=== PATIENT | male | born 1950 | race Caucasian/White ===

== ENCOUNTER 2025-08-04 16:40 | Inpatient (IN) | payer OTHER, SELFPAY ==
--- OUTSIDE RECORDS SUMMARY | 2024-09-16 05:10 | XMS_ITS ---
Author Organization [facility] Address [address] [place] [address] Care Team Providers Care Teletypewriter Operator Name Role Phone Rajesh Alonso MD Primary Care Provider Unavail able VELASQUEZ BLEDSOE Unavailable [phone] Allergies No Known Allergies REASON FOR VISIT 1 yr of w/psa 0.19, bph w/obstr, elevated psa Medications Medication SIG (Take, Route, Frequency, Duration) Notes Start Date End Date Status ALFUZOSIN HYDROCHLORIDE 10 mg tablet, extended release 1 tab(s) orally once a day; Duration: 30 day(s) 05/30/2018 Active FINASTERIDE 5 mg tablet 1 tab(s) orally once a day; Duration: 90 days 08/21/2022 Active ELIQUIS Active Social History Tobacco Use: Social History Observation Description Date Details (start date - stop date) Former Smoker NA - NA Social History Social History Social Info Question Answer Notes Smoking MU Are you a: former smoker How long has it been since you last smoked? > 10 years Additional Findings: Tobacco Non-User Current no n-smoker Alcohol MU Interpretation Negative Additional Details Category Social Info Options Details Social History Alcohol: No Smoking: No Sexually active: Yes Problems Problem Type SNOMED Code ICD Code Onset Dates Problem Status W/U Status Risk Notes Problem Elevated PSA (436609574) Elevated prostate specific antigen [PSA] (R97.20) Active confirmed Vital Signs Height 68 in 09/16/2024 Weight 210 lbs 09/16/2024 BMI 31.93 kg/m2 09/16/2024 Encounters Encounter Location Date Provider Diagnosis [facility] [address] [place] [address] 09/16/2024 VELASQUEZ BLEDSOE Benign prostatic hyperplasia with lower urinary tract symptoms N40.1 and Elevated prostate specific antigen [PSA] R97.20 Assessments Encounter Date Diagnosis (ICD Code) Assessment Notes Treatment Notes Treatment Clinical Notes Section Notes 09/16/2024 Benign prostatic hyperplasia with lower urinary tract symptoms (ICD-10 - N40.1) 09/16/2024 Elevated prostate specific antigen [PSA] (ICD-10 - R97.20) Plan Of Treatment Pending Test Test Name Order Date PSA, TOTAL 09/16/2024 Next Appt Details Provider Name:DANIA CORNELL, 09/09/2025 09:15:00 AM, [address], [place], [address], Progress Notes * Osorio LOPEZ GDOB:1949 (75 yo M)Acc No.[id number]:09/16/2024 Patient: Raj Osorio cedillo Mian Provider: Prudencio Bledsoe MD :1950 A ge:74 Y S ex:Male Date:09/16/2024 Address:[address] [place] [address] [place], [id number] Pcp:Rajesh Alonso MD Subjective: * Chief Complaints: * 1 yr of w/psa 0.19, bph w/obstr, elevated psa * HPI: P roblem 1: hx of bph on proscar and sx are stable doing well with good health no pain psa stable at 0.19 carmita smooth off of urox now ov with psa with ML Aug 2025. * Medical History: No Medical History Documented Medical History Verified * Surgical History: Back surgery x2 2010 tonsils 1955 Surgical History verified. * Hospitalization/Major Diagno stic Procedure: No Hospitalization Documented. Hospitalization Verified. * Family History: F ather: unknown, heart attack. M other: unknown, family history unknown . F amily History Verified.. * Social History: S moking: No. Smoking MU A re you a: f ormer smoker, H ow long has it been since you last smoked? > 10 years, A dditional Findings: Tobacco Non-User C urrent non-smoker. A lcohol MU I nterpretation N egative. A lcohol: No. Sexually active: Yes. Social History Verified. * Medications: T akingELIQUIS ALFUZOSIN HYDROCHLORIDE 10 mg tablet, extended release 1 tab(s) orally once a day FINASTERIDE 5 mg tablet 1 tab(s) orally once a day Medication List reviewed and reconciled with the patientTaking JESSE Taking ALFUZOSIN HYDROCHLORIDE 10 mg tablet, extended release 1 tab(s) orally once a day Taking FINASTERIDE 5 mg tablet 1 tab(s) orally once a day Medication List reviewed and reconciled with the patient * Allergies: N .K.D.A.yesAllergies Verified. Objective: * Vitals: H t: 68 in, Wt: 210 lbs, BMI: 31.93 Index. Assessment: * Assessment: 1. B enign prostatic hyperplasia with lower urinary tract symptoms - N40.1 2 .?Elevated prostate specific antigen [PSA] - R97.20 Plan: * Treatment: * Preventive Medicine: Counseling: C are goal follow up plan: A jose g Normal BMI Follow-up W eight monitoring , B NM Management provided Y es. Billing Information: * Visit Code: 23784 Office Visit, Est Pt., Level 4. * Procedure Codes: * Electronic signature of ROSALBA BLEDSOE MD on 08/04/2025 at 05:29 PM EST Sign off status: Pending * Provider: Prudencio Bledsoe MD Date: 11/17/2023 Generated for Hollie yusuf/Aditya/Fanny on: 10/04/2024 05:29 PM EST
--- OUTSIDE RECORDS SUMMARY | 2024-09-23 07:30 | XMS_ITS ---
Author Organization [facility] Address [address] [place] [address] Care Team Providers Care Personal Lines Insurance Agent Name Role Phone ..., .. Unavailable Unavailable Cadence Guillory Unavailable [phone] REASON FOR VISIT w mac Encounters Encounter Location Date Provider Diagnosis [facility] [address] [place] [address] 08/26 Cadence Guillory Plan Of Treatment No Information Progress Notes * SHELLY GUZMANDOB:[birth year] (75 yo M)Acc No.[id number]:09/23/2024 UNLOCKED PROGRESS NOTE Progress Notes Patient: SHELLY THAKKAR Provider: Jolynn Guillory MD :1950 A ge:74 Y S ex:Male Date:09/23/2024 Address:[address] [id number] Subjective: * Chief Complaints: * W mac * The named appointment provid er may or may not be the originator of this progress note, and it is not deemed complete until electronically signed by the appointment provider. Sign off status: Pending * Provider: Jolynn Guillory MD Date: Generated for Hollie yusuf/Aditya/eTransmitting on: 10/04/2024 05:28 PM EST
--- OUTSIDE RECORDS SUMMARY | 2024-11-29 16:30 | XMS_ITS ---
Author Organization [facility] Address [address] [place] [address] Care Team Providers Care Printing Press Operator Name Role Phone Rajesh Alonso MD Primary Care Provider Unavail able VELASQUEZ BLEDSOE Unavailable Migration, Provider Unavailable Unavailable REASON FOR VISIT Multum To Medispan Conversion Encounter Medications Medication SIG (Take, Route, Frequency, Duration) Notes Start Date End Date Status Eliquis *Please review a nd pick correct strength-formulatio n from Medispan options. If intended option is not shown, discontinue and re-order from Quick Search* Active Finasteride 5 MG Tablet 1 tab(s) orally once a day; Duration: 90 days 08/21/2022 Active Alfuzosin HCl ER 10 MG Tablet Extended Release 24 Hour 1 tab(s) orally once a day; Duration: 30 day(s) 05/30/2018 Active Encounters Encounter Location Date Provider Diagnosis [facility] [address] [place] [address] 11/29/2024 Provider Migration Plan Of Treatment Next Appt Details Provider Name:DANIA CORNELL, 09/09/2025 09:15:00 AM, [address], [place], [address], Progress Notes * Osorio LOPEZ GDOB:1949 (75 yo M)Acc No.[id number]:11/29/2024 Patient: Osorio Connolly Provider: Stephani mckeon Migration :1950 A ge:74 Y S ex:Male Date:11/29/2024 Address:[address] [place] [address], [place], [id number] Pcp:Rajesh Alonso MD Subjective: * Chief Complaints: * M ultum To Medispan Conversion Encounter * Medications: T akingEliquis , Notes to Pharmacist: *Please review and pick correct strength-formulation from Medispan options. If intended option is not shown, discontinue and re-order from Quick Search*Alfuzosin HCl ER 10 MG Tablet Extended Release 24 Hour 1 tab(s) orally once a day Finasteride 5 MG Tablet 1 tab(s) orally once a day Taking Eliquis , Notes to Pharmacist: *Please review and pick correct strength-formulation from Medispan options. If intended option is not shown, discontinue and re-order from Quick Search*Taking Alfuzosin HCl ER 10 MG Tablet Extended Release 24 Hour 1 tab(s) orally once a day Taking Finasteride 5 MG Tablet 1 tab(s) orally once a day * Electronic signature of Prov ider Migration on 08/04/2025 at 05:28 PM EST Sign off status: Pending * Provider: Stephani mckeon Migration Date: 0 11/29/2024 Generated for Hollie yusuf/Aditya/Fanny on: 10/04/2024 05:28 PM EST
--- OUTSIDE RECORDS SUMMARY | 2024-12-17 04:30 | XMS_ITS ---
Author Organization [facility] Address [address] [place] [address] Care Team Providers Care Bath Tester Name Role Phone Gavin RIVERA, Rajesh Primary Care Provider Unavail able PRANAY NATARAJAN Unavailable [phone] PÉREZ JURADO Unavailable [phone] REASON FOR VISIT Right Knee, Xrays [facility] Encounters Encounter Location Date Provider Diagnosis [facility] [address] [place] [address] 12/17/2024 PÉREZ JURADO Plan Of Treatment No Information Progress Notes * Osorio LOPEZ GDOB:1949 (75 yo M)Acc No.[id number]:12/17/2024 Progress Notes Patient: Raj Osorio CORLEY Provider: Jodi FAITH PA-C :1950 A ge:74 Y S ex:Male Date:12/17/2024 Address:[address] [place] [address] [id number] Pcp:Rajesh Alonso MD Subjective: * Chief Complaints: * 1 . Right Knee, Xrays [facility]. * Medical History: Objective: * Vitals: Assessment: Plan: * Treatment: * * Electronic signature of LI CALIX on 08/04/2025 at 05:28 PM EST Sign off status: Pending * Provider: RADHA RAMONC Date: 0 12/17/2024 Generated for Hollie yusuf/Aditya/Fanny on: 1 10/04/2024 05:28 PM EST
--- OUTSIDE RECORDS SUMMARY | 2025-01-13 04:30 | XMS_ITS ---
Author Organization [facility] Address [address] [place] [address] Care Team Providers Care Archival Records Clerk Name Role Phone Gavin RIVERA, Rajesh Primary Care Provider Unavail PRANAY Lr Unavailable [phone] REASON FOR VISIT Right knee scope Medications Medication SIG (Take, Route, Frequency, Duration) Notes Start Date End Date Status HYDROcodone-Acetaminop hen 5-325 MG 1-2 tablet as needed every 6 hrs prn Partial Fill upon Patient Request 01/07/2025 Active Finasteride 5 MG Oral; Duration: 90 Days Active Atorvastatin Calcium 20 MG Oral; Duration: 90 Days Active Eliquis 5 MG Oral; Duration: 90 Days Active Encounters Encounter Location Date Provider Diagnosis [address] [phone] 01/13/2025 PRANAY NATARAJAN Plan Of Treatment No Information Progress Notes * Osorio LOPEZ GDOB:1949 (75 yo M)Acc No.[id number]:01/13/2025 Patient: Raj Osorio CORLEY Provider: Art Natarajan M.D. :1950 A ge:74 Y S ex:Male Date:01/13/2025 Address:[address] [place] [address] [id number] Pcp:Rajesh Alonso MD Subjective: * Chief Complaints: * 1 . Right knee scope. * Medical History: * Medications: T aking Eliquis 5 MG Tablet Oral , Taking Atorvastatin Calcium 20 MG Tablet Oral , Taking Finasteride 5 MG Tablet Oral , Taking HYDROcodone-Acetaminophen 5-325 MG Tablet 1-2 tablet as needed every 6 hrs prn , Notes to Pharmacist: Partial Fill upon Patient Request Objective: * Vitals: Assessment: Plan: * Treatment: * * Electronic signature of ILA NATARAJAN MD on 08/04/2025 at 05:29 PM EST Sign off status: Pending * Provider: Art Natarajan M.D. Date: 0 01/13/2025 Generated for Hollie yusuf/Aditya/Fanny on: 1 10/04/2024 05:29 PM EST
--- OUTSIDE RECORDS SUMMARY | 2025-08-04 17:29 | XMS_ITS | Clinical Summary ---
Author Organization [facility] Address [address] [place] [address] Care Team Providers Care Manager Enterprise Content Management Name Role Phone Rajesh Alonso MD Primary Care Provider [phone] Social History Tobacco Use Types Packs/Day Years Used Date Smoking Tobacco: Never Assessed Sex and Gender Information Value Date Recorded Sex Assigned at Not on file Legal Sex Male 10:06 PM EDT Gender Identity Not on file Sexual Orientation Not on file Last Filed Vital Signs Vital Sign Reading Time Taken Comments Blood Pressure - - Pulse - - Temperature - - Respiratory Rate - - Oxygen Saturation - - Inhaled Oxygen Concentration - - Weight 83.9 kg (185 lb) 06/10/2018 9:38 AM EDT Height 172.7 cm (5' 8 ) 06/10/2018 9:38 AM EDT Body Mass Index 28.13 06/10/2018 9:38 AM EDT Plan of Treatment Upcoming Encounters Date Type Department Care Team (Late st Contact Info) Description 08/12/2025 9:30 AM EST Ancillary Procedure [facility] [address] [address] 08/12/2025 10:00 AM EST Office Visit [facility] [address] [address] Claudia Pimentel MD [address] [place] [phone] Health Maintenance Due Date Last Done Comments Hepatitis C Screening 1950 CT Colonography 1996 Colonoscopy 1996 Colorectal Cancer Screening 1996 FIT-DNA 1996 FIT 1996 FOBT 1996 Sigmoidoscopy 1996 Respiratory Syncytial Virus (RSV): 60+ years (1 - Risk 60-74 years 1-dose series) 2011 Pneumococcal Vaccine: 50+ (2 of 2 - PPSV23) 12/12/2017 12/12/2016 DTaP,Tdap,and Td Vaccines (2 - Td or Tdap) 11/15/2023 11/15/2013 COVID-19 Vaccine ( - season) 2025 07/18/2024, 07/26/2023, 07/19/2022, Additional history exists Influenza Vaccine (#1) 2025 , 07/26/2023, 07/19/2022, Additional history exists Pneumococcal Vaccine: Pediatrics (0 to 5 Years) and At-Risk Patients (6 to 64 Years) Discontinued 12/12/2016 Lipid Panel Discontinued 07/25/2017 Zoster Vaccines Completed 12/28/2021, 08/03/2021 HPV Vaccines Aged Out No longer eligi ble based on patient's age to complete this topic Meningococcal Vaccine Aged Out No bertram karen eligible based on patient's age to complete this topic Procedures Procedure Name Priority Date/Time Associated Diagnosis Comments LIPID PANEL W/REFLEX TO DIRECT LDL Routine 07/25/2017 7:41 AM EDT from Last 3 Months or Most Recently Relevant to Health Maintenance Results * (ABNORMAL) Lipid panel (07/25/2017 7:41 AM EDT) CHOLESTEROL, TOTAL 181 0 - 200 mg/dL HISTORICAL RESULTING [facility] TRIGLYCERIDES 74 35 - 160 mg/dL HISTOR[facility] RESULTING [facility] HDL CHOLESTEROL 44 29 - 86 mg/dL HISTOR[facility] RESULTING [facility] LDL-CHOLESTEROL 122 0 - 130 mg/dL HISTOR[facility] RESULTING [facility] CHOL/HDLC RATIO 4.11(H) 0.00 - 3.00 [facility]IST[facility] RESULTING [facility] 07/25/2017 7:41 AM EDT us Joseph Yeung MD LAB BLOOD ORDERABLES Final Resu lt HISTORICAL RESULTING AG[facility]Y from Last 3 Months or Most Recently Relevant to Health Maintenance Insurance [facility] [employer] [facility] Advance Directives Documents on File Type Date Recorded Patient Store Group Manager Expl anation Advanced Directive 05/01/2018 12:00 AM Care Teams Manager Enterprise Content Management Relationship Specialty Start Date End Date Rajesh Alonso MD [address] [place] [address] PCP - General Family Medicine 06/03/24
--- OUTSIDE RECORDS SUMMARY | 2025-08-04 17:29 | XMS_ITS | Patient Health Record ---
Author Organization [facility] Address [address] [place] [address] Care Team Providers Care Airport Planner Name Role Phone Rajesh Alonso MD Primary Care Provider Unavail able PRANAY NATARAJAN Unavailable [phone] XXPÉREZ FAITH Unavailable [phone] XXWENCESLAO VEGA Unavailable [phone] Allergies No Known Allergies Results Component Value Reference Range Notes MRI : Knee (C-) CPT 92142 - Right Reviewed date:12/09/2024 10:20:15 AM Interpretation: Performing Lab: Notes/Report: Reason For Referral Reason [facility] Referring Provider First Name Rajesh Referring Provider Last Name [facility] Referred Organization [facility] Referred Provider BENSON ESTEVEZ Referred Address [address] [place] [phone], Referred Provider Specialty Orthopedic S urgery Referral Priority Routine Reason [facility] Referring Provider First Name Rajesh Referring Provider Last Name [facility] Referred Organization [facility] Referred Provider PRANAY NATARAJAN Referred Address [address] [place] [phone], Referred Provider Specialty Orthopedic S urgery Referral Priority Routine Medications Medication SIG (Take, Route, Frequency, Duration) Notes Start Date End Date Status HYDROcodone-Acetamino phen 5-325 MG 1-2 tablet as needed every 6 hrs prn Partial Fill upon Patient Request 01/07/2025 Not-Taking Finasteride 5 MG Oral; Duration: 90 Days Active Atorvastatin Calcium 20 MG Oral; Duration: 90 Days Active Eliquis 5 MG Oral; Duration: 90 Days Active Social History Tobacco Use: Social History Observation Description Date Details (start date - stop date) Former Smoker NA - NA Tobacco Control (Standard) Question Answer Notes Tobacco use: Former smoker AUDIT-C (Standard) Question Answer Notes Did you have a drink containing alcohol in the p ast year? No Points 0 Interpretation Negative Problems Problem Type SNOMED Code ICD Code Onset Dates Problem Status W/U Status Risk Notes Problem Contracture of right knee joint (disorder) (087520504664614) Contracture, right knee (M24.561) Active confirmed Problem Osteoarthritis of knee (424938313) Primary osteoarthritis of right knee (M17.11) Active confirmed Vital Signs Height 68 in 02/03/2025 Weight 228 lbs 02/03/2025 BMI 34.66 kg/m2 02/03/2025 Encounters Encounter Location Date Provider Diagnosis [address] [id number] 01/13/2025 PRANAY NATARAJAN [facility] [address] [address] 12/05/2024 WENCESLAO HILL Primary osteoarthrit is of right knee M17.11 ; Contracture, right knee M24.561 and Pain, joint, knee, right M25.561 [place] [address] [place] [address] 12/16/2024 WENCESLAO HILL Primary osteoarthrit is of right knee M17.11 ; Other tear of medial meniscus, current injury, right knee, initial encounter S83.241A ; Lateral meniscal tear S83.289A and Pain, joint, knee, right M25.561 [facility] [address] [address] 02/03/2025 WENCESLAO HILL Complex tear of medi al meniscus of right knee as current injury, subsequent encounter S83.231D and Primary osteoarthritis of right knee M17.11 [facility] [address] [place] [phone] 01/07/2025 WENCESLAO HILL Assessments Encounter Date Diagnosis (ICD Code) Assessment Notes Treatment Notes Treatment Clinical Notes Section Notes 12/16/2024 Other tear of medial meniscus, current injury, right knee, initial encounter (ICD-10 - S83.241A) 12/16/2024 Primary osteoarthritis of right knee (ICD-10 - M17.11) 74-year-old male patient as the clinic with right knee pain since last August. Patient went to stand up and heard a pop in his right knee followed by pain and swelling. His symptoms have persisted. Does have a positive Sreedhar's on exam. Review of x-rays ordered by his primary care doctor shows mild arthritis but no other abnormalities. Review of MRI of R knee does demonstrate a medial and lateral meniscus tear. After discussion, he is signed up for R knee arthroscopy. 12/05/2024 Contracture, right knee (ICD-10 - M24.561) 12/05/2024 Primary osteoarthritis of right knee (ICD-10 - M17.11) 74-year-old male patient as the clinic with right knee pain since last August. Patient was regard working with stand up and heard a pop in his right knee followed by pain and swelling. His symptoms have persisted. Does have a positive Sreedhar's on exam. Review of x-rays ordered by his primary care doctor shows mild arthritis but no other abnormalities. Symptoms concerning for meniscal tear. Patient would like to opt for surgery versus cortisone injection if it is torn. MRI right knee is ordered and we'll follow-up after to review. 02/03/2025 Complex tear of medial meniscus of right knee as current injury, subsequent encounter (ICD-10 - S83.231D) 74-year-old male patient presents to clinic 3 weeks status post knee arthroscopy for torn meniscus.he has no complaints or concerns today. He is feeling much better and surgery. He will follow-up if symptoms return. Assessment and plan reviewed with patient, Treatment options reviewed, Return if symptoms worsen and/or persist, Continue current therapy regimen/HEP. 02/03/2025 Primary osteoarthritis of right knee (ICD-10 - M17.11) 12/05/2024 Pain, joint, knee, right (ICD-10 - M25.561) 12/16/2024 Lateral meniscal tear (ICD-10 - S83.289A) 12/16/2024 Pain, joint, knee, right (ICD-10 - M25.561) Plan Of Treatment No Information Insurance Providers Payer Name Payer Address Payer Phone Subscriber Number Group Number Insured Name Patient Relationship to Insured Coverage Start Date Coverage End Date [facility] [address] [place] [phone] [id number] Osorio Lopez Self - patient is the insured Medical (General) History Medical History History ICD Code Atrial fibrillation hypercholesterolemia Surgical History Surgery Date(Month/Year) tonsillectomy Back unspecified right knee arthroscopy-[facility] 01/13/2025
--- OUTSIDE RECORDS SUMMARY | 2025-08-04 17:29 | XMS_ITS | Patient Health Record ---
Author Organization [facility] Address [address] [place] [address] Care Team Providers Care Bender Hand Name Role Phone ..., .. Unavailable Unavailable Cadence Guillory Unavailable [phone] Reason For Referral No Information Social History Social History Tobacco Use: Social Info Question Answer Notes Tobacco Use: Date tobacco status assessed 12/24/2020 Status: Former tobacco user Tobacco Exposure No exposure to secon dhand smoke/No smokers in household Additional Findings: Tobacco Non-User Current no n-smoker Plan Of Treatment No Information
--- OUTSIDE RECORDS SUMMARY | 2025-08-04 17:29 | XMS_ITS | Patient Health Record ---
Author Organization [facility] Address [address] [place] [address] Care Team Providers Care [place] Operator Name Role Phone Rajesh Alonso MD Primary Care Provider Unavail able VELASQUEZ BLEDSOE Unavailable Migration, Provider Unavailable Unavailable Allergies No Known Allergies Results Component Value Reference Range Flag Notes PSA, TOTAL Reviewed date:09/14/2024 07:42:39 AM Interpretation: Performing Lab:NL2, [facility] [facility] [employer], [address] [place] [address], [id number] Kaleigh Mcneil Notes/Report: Received Date: NON-FASTING PSA, TOTAL 0.19 < OR = 4.00 ng/mL N The total PSA value from this assay system is standardized against the WHO standard. The test result will be approximately 20% lower when compared to the equimolar-standardized total PSA (Maribel Salma). Comparison of serial PSA results should be interpreted with this fact in mind. This test was performed using the Siemens chemiluminescent method. Values obtained from different assay methods cannot be used interchangeably. PSA levels, regardless of value, should not be interpreted as absolute evidence of the presence or absence of disease. Reason For Referral Referring Provider First Name Rajesh Referring Provider Last Name Gavin Referring Provider Speciality Internal M edicine Referred Organization [facility] Referred Provider CORDELL BLEDSOE Referred Address [address],[place], [place],[address], Referral Priority Routine Medications Medication SIG (Take, [...] a day; Duration: 30 day(s) 05/30/2018 Active Social History Tobacco Use: Social History [...] Problem Status W/U Status Risk Notes Problem Lower urinary tract symptoms due to benign prostatic hypertrophy ([id number]) Benign prostatic hyperplasia with lower urinary tract symptoms (N40.1) Active confirmed Problem Elevated PSA (126853136) Elevated prostate specific antigen [PSA] (R97.20) Active confirmed Vital Signs Height 68 in 09/16/2024 Weight 210 lbs 09/16/2024 BMI 31.93 kg/m2 09/16/2024 Encounters Encounter Location Date Provider Diagnosis [facility] [address], [place] [address] 08/24/2024 EVANGELOS GERANIOTIS Elevated prostate specific antigen [PSA] R97.20 [facility] [address] [place] [address] 09/16/2024 EVANGELOS GERANIOTIS Benign prostatic hyperplasia with lower urinary tract symptoms N40.1 and Elevated prostate specific antigen [PSA] R97.20 [facility] [address] [place] [address] 11/29/2024 Provider Migration Assessments Encounter Date Diagnosis (ICD Code) Assessment Notes Treatment Notes Treatment Clinical Notes Section Notes 08/24/2024 Elevated prostate specific antigen [PSA] (ICD-10 - R97.20) 09/16/2024 Benign prostatic hyperplasia with lower urinary tract symptoms (ICD-10 - N40.1) 09/16/2024 Elevated prostate specific antigen [PSA] (ICD-10 - R97.20) Plan Of Treatment Pending Test Test Name Order Date PSA, TOTAL 09/16/2024 Next Appt Details Provider Name:DANIA CORNELL, 09/09/2025 09:15:00 AM, [address], [place], [address], Insurance Providers Payer Name Payer Address Payer Phone Subscriber Number Group Number Insured Name Patient Relationship to Insured Coverage Start Date Coverage End Date [facility] [address] [place] [address] [id number] Osorio Lopez Self - patient is the insured Medical (General) History Surgical History Surgery Date(Month/Year) Back surgery x2 2010 tonsils 195
[2025-08-04 17:36] VITALS: BMI 30.9
[2025-08-04 18:14] VITALS: BP 169/84; PULSE 95; RESP 18; TEMP 37.3; O2SAT 97
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
[2025-08-04 20:00] VITALS: BP 139/74; PULSE 97; RESP 16; TEMP 36.2; O2SAT 97
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
[2025-08-05 08:00] VITALS: RESP 18
[2025-08-05 08:43] LABS: Alanine Aminotransferase 71 U/L (0-40); Albumin Level 4.5 g/dL (3.5-5.0); Alkaline Phosphatase 75 U/L (39-117); Anion Gap 14 (12-20); Aspartate Amino Transferase 52 U/L (5-37); Blood Urea Nitrogen 13 mg/dL (9-16); Calcium 9.4 mg/dL (8.4-10.2); Carbon Dioxide 26 mmol/L (22-29); Chloride 106 mmol/L (96-108); Cholesterol 158 mg/dL (<200); Creatinine Clr Calc Pharmacy 57.1; Estimated Glomerular Filt Rate 56; HDL Cholesterol 44 mg/dL (>40); Magnesium 2.1 mg/dL (1.6-2.6); Potassium 4.6 mmol/L (3.3-5.1); Sodium 141 mmol/L (135-145); Total Protein 6.8 g/dL (6.5-8.0); Triglycerides 66 mg/dL (<150)
[2025-08-05 08:50] LABS: Free T4 (Free Thyroxine) 1.13 ng/dL (0.71-1.85); Thyroid Stimulating Hormone 1.61 uIU/mL (0.32-4.0)
[2025-08-05 09:08] LABS: Folate 9.3 ng/mL (> or = 4.0); Vitamin B12 423 pg/mL (200-900)
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
--- NOTE | 2025-08-05 10:01 | PC.NURSE ---
Declined vital signs and Claudette Coronado notified. Requested that she order Finesteride which is on med rec.
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
--- NOTE | 2025-08-05 11:30 | P.PNPSI_ITS ---
Subjective Subjective Date of Service: 08/05/25 Reason For Visit: bipolar cma severe Subjective Notes: Sorto Warning (given and understood) and Conditional Voluntary Medication Compliance: Intermittent (no medications in the community, fully opposed to [place] but agreed to VPA and Olanzapine, including increase in VPA dose) Side effects from medications: No (Emphatically denies) Review of Systems Medical Review of Systems: unchanged Review of Systems Review of Systems Limited by mental status--- irritable, agitated, hostile, argumentative and indicating he did not want to answer questions I posed bc of my foreign accent Gastrointestinal: Reports constipation Reports behavioral changes Comments: irritable, agitated, argumentative and argumentative. Initially refusing to interact or answer questions stating he did not want a doctor who had an accent and could not understand what I was saying at all. He refused to answer becoming increasingly angry, loud, verbally aggressive and hostile Psychiatric: Reports abnormal sleep pattern, Reports behavioral changes, Reports mood swings and Reports other Comments: cam and bipolar 2... no sleep x several days, agitation, irritability, pressured speech, RADHA and FOI, racing thoughts tangential, easily angered, verbally aggressive Mental Status Exam Mental Status Exam Patient Appearance: Disheveled, Inappropriate and Unkempt Patient Orientation: Person, Place and Situation (limited by lack of cooperation, and becoming upset with questions as he spoke uninterruptedly and it was nearly impossible to get a word in) Level of Consciousness: Awake, Restless, Alert and Inappropriate (hostile, loud, agitated) Patient Behavior: Hyperactive, Aggressive (verbally at times, not physically-), Restless, Swearing, Invasion - Personal Space, Distractible, Uncooperative (loud, argumentative, hostile) and Impulsive Mood Description: Hostile, Labile and Angry Affect Description: Hostile and Labile (labile, differing intensity of hostility/anger, briefly sobbing about a family member, switching to anger) Ability to Follow Directions: Poor Speech Pattern: Perseverating, Spontaneous Speech, Rambling, Rapid, Excessive, Loud, Pressured and Includes Profanity (uninterruptable mostly) Hallucinations: None (denied) Delusions: Paranoid Ideation (seems to have some paraniod interpretations of events but not florid/overt delusions. ) and Grandiose (not delusional but seems to have increased sense of self/ ) Thought Process: Racing, Illogical and Word Salad (pressured and uninterruptable) Thought Content: positive for Flight of Ideas, positive for Racing, positive for Circumstantial, positive for Perseveration, positive for Loose Associations, positive for Tangential and positive for Disorganized Abnormal Motor Activity Signs and Symptoms: Agitation, Hyperactivity and Restlessness Judgement: Fair (limited) Diagnostics Vital Signs (24Hr): Vital Signs - 24 hr 08/04/25 18:14 08/04/25 20:00 08/05/25 08:00 Temperature 99.1 F 97.2 F Pulse Rate 95 97 Respiratory Rate 18 16 18 Blood Pressure 169/84 H 139/74 Pulse Oximetry 97 97 Oxygen Delivery Method Room Air BMI result Body Mass Index 30.9 Labs 08/05/25 07:19 Labs: Laboratory Results - last 48 hr 08/05/25 08/05/25 07:18 07:19 Sodium 141 Potassium 4.6 Chloride 106 Carbon Dioxide 26 Anion Gap 14 BUN 13 Creatinine 1.25 Estim Creat Clear Calc 57.1 Estimated GFR 56 Random Glucose 135 H Estimat Average Glucose 108 Hemoglobin A1c % 5.4 Calcium 9.4 Magnesium 2.1 Total Bilirubin 0.7 AST 52 H ALT 71 H Alkaline Phosphatase 75 Total Protein 6.8 Albumin 4.5 Triglycerides 66 Cholesterol 158 LDL Cholesterol, Calc 101 H HDL Cholesterol 44 Vitamin B12 423 Folate 9.3 TSH 1.61 Free T4 1.13 Medications Medications Current Medications Acetaminophen (Acetaminophen 325 Mg Tablet) 650 mg PO Q6H PRN PRN Reason: Headache/Pain, Scale 1-10 Al Hydroxide/Mg Hydroxide (Magnesium Hydrox/Alum Hydrox 30 Ml Oral.Susp) 30 ml PO Q6H PRN PRN Reason: Heartburn/Nausea Apixaban (Apixaban 5 Mg Tablet) 5 mg PO BID [facility] Last Admin: 08/05/25 07:42 Dose: 5 mg Atorvastatin Calcium (Atorvastatin Calcium 20 Mg Tablet) 20 mg PO BEDTIME [facility] Last Admin: 08/04/25 20:52 Dose: 20 mg Divalproex Sodium (Divalproex Sodium 500 Mg Tablet.Dr) 500 mg PO BID [facility] Last Admin: 08/05/25 07:42 Dose: 500 mg Finasteride (Finasteride 5 Mg Tablet) 5 mg PO DAILY [facility] Hydroxyzine HCl (Hydroxyzine Hcl 25 Mg Tablet) 25 mg PO Q6H PRN PRN Reason: mild anxiety Lorazepam (Lorazepam 1 Mg Tablet) 1 mg PO Q6H PRN PRN Reason: severe anxiety Last Admin: 08/05/25 07:42 Dose: 1 mg Magnesium Hydroxide (Milk Of Magnesia 30 Ml Oral.Susp) 30 ml PO DAILY PRN PRN Reason: Constipation Nicotine (Nicotine 21 Mg Patch.Td24) 21 mg TRANSDERMA DAILY PRN PRN Reason: nicotine craving Nicotine Polacrilex (Nicotine Polacrilex 2 Mg Gum) 2 mg BUCCAL Q2H PRN PRN Reason: Nicotine Cravings Olanzapine (Olanzapine 10 Mg Tablet) 10 mg PO BID [facility] Last Admin: 08/05/25 07:42 Dose: 10 mg Olanzapine (Olanzapine 5 Mg Tablet) 5 mg PO BID PRN PRN Reason: agitation Trazodone HCl (Trazodone Hcl 50 Mg Tablet) 50 mg PO BEDTIME MRX1 PRN PRN Reason: Insomnia Allergies Allergies Allergy/AdvReac Type Severity Reaction Status Date / Time No Known Allergies Allergy Verified 08/04/25 17:37 Assessment & Plan Assessment & Plan (1) Bipolar disorder, manic, moderate: Status: Acute Code(s): F31.12 - Bipolar disorder, current episode manic without psychotic features, moderate (2) Type II diabetes mellitus: Status: Acute Code(s): E11.9 - Type 2 diabetes mellitus without complications (3) A-fib: Status: Acute Code(s): I48.91 - Unspecified atrial fibrillation (4) PTSD (post-traumatic stress disorder): Status: Acute Code(s): F43.10 - Post-traumatic stress disorder, unspecified Assessment and Plan: self-reported--- Plan HPI: patient is a 75 Slovak Speaking male with hx of Bipolar disorder who presents to the ED from home on a section 12 on 08/01/25. Patient has been experience worsening cam. He has not been eating, drinking or sleeping. Patient was combative when EMS arrived to his home. Patient was agitated, throwing chairs at people. Was given 2.5mg of Versed by EMS. Continue to yell, swear at staff, and combative after multiple attempted to direct, patient was physically and chemically restrained in the ED. Formulation/clinical reasoning: manic, poor sleep and appetite, irritable, agitated, loud, was Restrained in ED. Hx of Bipolar, and according to patient OCD, and PTSD. Significant symptoms of cam and untreated for unclear time. Patient appears to have had contact with [facility] and a prior [facility] hospital admission (remote) to ? [facility]. Given above information, patient would require inpatient stabilization in an [facility] and ongoing treatment including medication management, psychosocial interventions, family contact, obtain collateral information from family/providers if agreable, and participation in reccommended groups. Will provide psychoeducation and coordinate care/refer to OP services for ongoing medical and psychiatric management. Hospital course: 08/04/25: patient reports taking no meds at home for Bipolar and medication was started from ED Depakote 500mg BID. Will adjust to therapeutic dose. Level in 4 days or Zyprexa 10mg BID Eliquis 5mg BID Atorvastatin 20mg daily at HS Add Zyprexa 5mg BID PRN For agitation Add Ativan 1mg Q6hrs PRN for severe anxiety Plan Patient on 5 minute checks for safety. Admitted to S1. CV. Psychopharmacological assessment and mgmt as noted---goal VPA dose by weight ~2000 mg, will titrate and check levels Psychosocial assessment and interventions including groups/milieu mgmt Admission medical assessment and care with medicine as needed labs/diagnostic test. Discharge planing ED labs: Elevated on AST/ALT. Utox +BZD (was given Versed from EMS prior to be brought to ED, BAL negative). Patient educated on: diagnosis, medication risk/benefits, therapeutic strategies and other (accepted limited amount of information, would barely allow a word in ) Informed Consent: understands and further education needed Reason for continued inpatient stay Substantial Risk for: inability to function (impaired judgement, too acute to be managed in community, tenuous ability to have a discussion about diagnosis/treatment/prognosis, unclear if enough supports, agitated and easily confrontational/menacing potentially at risk of harming others or being retaliated against) and rapid decompensation Time Spent With Patient Time: Total time managing care of this patient today _45___ minutes.
--- NOTE | 2025-08-05 11:49 | P.PNPSI_ITS ---
Subjective Subjective Reason For Visit: bipolar cam severe Diagnostics Vital Signs (24Hr): Vital Signs - 24 hr 08/04/25 18:14 08/04/25 20:00 08/05/25 08:00 Temperature 99.1 F 97.2 F Pulse Rate 95 97 Respiratory Rate 18 16 18 Blood Pressure 169/84 H 139/74 Pulse Oximetry 97 97 Oxygen Delivery Method Room Air BMI result Body Mass Index 30.9 Labs 08/05/25 07:19 Labs: Laboratory Results - last 48 hr 08/05/25 08/05/25 07:18 07:19 Sodium 141 Potassium 4.6 Chloride 106 Carbon Dioxide 26 Anion Gap 14 BUN 13 Creatinine 1.25 Estim Creat Clear Calc 57.1 Estimated GFR 56 Random Glucose 135 H Estimat Average Glucose 108 Hemoglobin A1c % 5.4 Calcium 9.4 Magnesium 2.1 Total Bilirubin 0.7 AST 52 H ALT 71 H Alkaline Phosphatase 75 Total Protein 6.8 Albumin 4.5 Triglycerides 66 Cholesterol 158 LDL Cholesterol, Calc 101 H HDL Cholesterol 44 Vitamin B12 423 Folate 9.3 TSH 1.61 Free T4 1.13 Medications Medications Current Medications Acetaminophen (Acetaminophen 325 Mg Tablet) 650 mg PO Q6H PRN PRN Reason: Headache/Pain, Scale 1-10 Al Hydroxide/Mg Hydroxide (Magnesium Hydrox/Alum Hydrox 30 Ml Oral.Susp) 30 ml PO Q6H PRN PRN Reason: Heartburn/Nausea Apixaban (Apixaban 5 Mg Tablet) 5 mg PO BID [facility] Last Admin: 08/05/25 07:42 Dose: 5 mg Atorvastatin Calcium (Atorvastatin Calcium 20 Mg Tablet) 20 mg PO BEDTIME [facility] Last Admin: 08/04/25 20:52 Dose: 20 mg Divalproex Sodium (Divalproex Sodium 500 Mg Tablet.Dr) 500 mg PO BID [facility] Last Admin: 08/05/25 07:42 Dose: 500 mg Finasteride (Finasteride 5 Mg Tablet) 5 mg PO DAILY [facility] Last Admin: 08/05/25 11:29 Dose: 5 mg Hydroxyzine HCl (Hydroxyzine Hcl 25 Mg Tablet) 25 mg PO Q6H PRN PRN Reason: mild anxiety Lorazepam (Lorazepam 1 Mg Tablet) 1 mg PO Q6H PRN PRN Reason: severe anxiety Last Admin: 08/05/25 07:42 Dose: 1 mg Magnesium Hydroxide (Milk Of Magnesia 30 Ml Oral.Susp) 30 ml PO DAILY PRN PRN Reason: Constipation Nicotine (Nicotine 21 Mg Patch.Td24) 21 mg TRANSDERMA DAILY PRN PRN Reason: nicotine craving Nicotine Polacrilex (Nicotine Polacrilex 2 Mg Gum) 2 mg BUCCAL Q2H PRN PRN Reason: Nicotine Cravings Olanzapine (Olanzapine 10 Mg Tablet) 10 mg PO BID [facility] Last Admin: 08/05/25 07:42 Dose: 10 mg Olanzapine (Olanzapine 5 Mg Tablet) 5 mg PO BID PRN PRN Reason: agitation Trazodone HCl (Trazodone Hcl 50 Mg Tablet) 50 mg PO BEDTIME MRX1 PRN PRN Reason: Insomnia Allergies Allergies Allergy/AdvReac Type Severity Reaction Status Date / Time No Known Allergies Allergy Verified 08/04/25 17:37 Assessment & Plan Assessment & Plan (1) Bipolar disorder, manic, moderate: Status: Acute Code(s): F31.12 - Bipolar disorder, current episode manic without psychotic features, moderate (2) Type II diabetes mellitus: Status: Acute Code(s): E11.9 - Type 2 diabetes mellitus without complications (3) A-fib: Status: Acute Code(s): I48.91 - Unspecified atrial fibrillation (4) PTSD (post-traumatic stress disorder): Status: Acute Code(s): F43.10 - Post-traumatic stress disorder, unspecified Plan HPI: patient is a 75 Romansh Speaking male with hx of Bipolar disorder who presents to the ED from home on a section 12 on 08/01/25. Patient has been experience worsening cam. He has not been eating, drinking or sleeping. Patient was combative when EMS arrived to his home. Patient was agitated, throwing chairs at people. Was given 2.5mg of Versed by EMS. Continue to yell, swear at staff, and combative after multiple attempted to direct, patient was physically and chemically restrained in the ED. Formulation/clinical reasoning: manic, poor sleep and appetite, irritable, agitated, loud, was Restrained in ED. Hx of Bipolar, OCD, [facility]. Given above information, patient would benefit in the restrictive environment, medication management , therapeutic groups offered for coping skills, and refer patient to OP psychiatric services for aftercare. Hospital course: 08/04/25: patient reports taking no meds at home for Bipolar and medication was started from ED Depakote 500mg BID. Will adjust to therapeutic dose. Level in 4 days or Zyprexa 10mg BID Eliquis 5mg BID Atorvastatin 20mg daily at HS Add Zyprexa 5mg BID PRN For agitation Add Ativan 1mg Q6hrs PRN for severe anxiety Plan Patient on 5 minute checks for safety. Admitted to S1. CV. Work with treatment team to do collateral Contact the hospitalist regarding hospitalist consultation on admission: pending labs/diagnostic test. Discharge planing ED labs: Elevated on AST/ALT. Utox +BZD (was given Versed from EMS prior to be brought to ED, BAL negative). Time Spent With Patient Time: Total time managing care of this patient today ____ minutes.
[2025-08-05 20:00] VITALS: BP 126/60; PULSE 98; RESP 16; TEMP 37; O2SAT 98
[2025-08-06 08:00] VITALS: BP 137/60; PULSE 83; RESP 16; TEMP 36.7; O2SAT 98
[2025-08-06 11:04] VITALS: BMI 30.6
--- NOTE | 2025-08-06 13:56 | P.PNPSI_ITS ---
Subjective Subjective Date of Service: 08/06/25 Reason For Visit: bipolar cam severe Subjective Notes: Conditional Voluntary Guardianship: No Interim History: Slept some with PRN medications. Extremeely labile, tangential, pressured, loud to shouting, non-specific threats to others, poor personal space, pacing and clenching fists, shirt off, puffing chest. Poor tolerance to frustration, wants wishes immediately met. Intimidating in demeanor, refused medication offered to deescalate but agreed to go to room before briefly coming out and causing a disruption again. RN finally able to provide prn with much encouragement. Medication Compliance: Intermittent (refused medications/PRN while having significant outburst, screaming, verbally threatening. then accepted medication) Side effects from medications: No Attending Groups: No (extremely argumentative, pressured, nearly uninterrupted speech) Review of Systems Review of Systems Limited by mental status--- irritable, agitated, hostile, argumentative and intrusive, posturing, menaacing demeanor Yes all other systems are reviewed and are negative Gastrointestinal: Reports constipation Reports behavioral changes Psychiatric: Reports abnormal sleep pattern, Reports behavioral changes, Reports mood swings and Reports other Mental Status Exam Mental Status Exam Patient Appearance: Disheveled, Inappropriate and Unkempt Patient Orientation: Person, Place, Time (unable to obtain given level of disorganization/disregulation/hostility) and Situation (limited by lack of cooperation, and becoming upset with questions as he spoke uninterruptedly and it was nearly impossible to get a word in) Level of Consciousness: Awake, Restless, Alert, Inappropriate (hostile, loud, agitated) and Combative (as above noted, vague threats toward others accompanied with hostility, posturing, walking towards MD in menacing fashion without respecting requests to provide space. Posturing.) Patient Behavior: Posturing, Hyperactive, Suspicious, Aggressive (verbally at times, not physically-), Restless, Belligerent, Swearing, Resistive to Care, Invasion - Personal Space, Distractible, Uncooperative (loud, argumentative, hostile), Impulsive and Poor Eye Contact (intense eye contact) Mood Description: Suspicious, Hostile, Labile and Angry Affect Description: Hostile, Labile (labile, differing intensity of hostility/anger, briefly sobbing about a family member, switching to anger) and Angry Ability to Follow Directions: Poor Speech Pattern: Spontaneous Speech, Rambling, Rapid, Inappropriate, Excessive, Loud, Pressured and Includes Profanity (uninterruptable mostly) Hallucinations: None (Unable to fully assess given mental state) Delusions: Paranoid Ideation (suspicious and seems paranoid but has not endorsed directly) and Grandiose Thought Process: Incoherent, Racing, Illogical and Word Salad Thought Content: positive for Flight of Ideas, positive for Racing, positive for [employer], positive for Perseveration, positive for Loose Associations, positive for Tangential and positive for Disorganized Abnormal Motor Activity Signs and Symptoms: Aggression (hostile, posturing, intruding into others space), Agitation, Hyperactivity and Restlessness Judgement: Poor (limited to impaired) Diagnostics Vital Signs (24Hr): Vital Signs - 24 hr 08/05/25 20:00 08/06/25 08:00 Temperature 98.6 F 98.1 F Pulse Rate 98 83 Respiratory Rate 16 16 Blood Pressure 126/60 137/60 Pulse Oximetry 98 98 Oxygen Delivery Method Room Air Room Air BMI result Body Mass Index 30.6 Labs 08/05/25 07:19 Labs: Laboratory Results - last 48 hr 08/05/25 08/05/25 07:18 07:19 Sodium 141 Potassium 4.6 Chloride 106 Carbon Dioxide 26 Anion Gap 14 BUN 13 Creatinine 1.25 Estim Creat Clear Calc 57.1 Estimated GFR 56 Random Glucose 135 H Estimat Average Glucose 108 Hemoglobin A1c % 5.4 Calcium 9.4 Magnesium 2.1 Total Bilirubin 0.7 AST 52 H ALT 71 H Alkaline Phosphatase 75 Total Protein 6.8 Albumin 4.5 Triglycerides 66 Cholesterol 158 LDL Cholesterol, Calc 101 H HDL Cholesterol 44 Vitamin B12 423 Folate 9.3 TSH 1.61 Free T4 1.13 Medications Medications Current Medications Acetaminophen (Acetaminophen 325 Mg Tablet) 650 mg PO Q6H PRN PRN Reason: Headache/Pain, Scale 1-10 Al Hydroxide/Mg Hydroxide (Magnesium Hydrox/Alum Hydrox 30 Ml Oral.Susp) 30 ml PO Q6H PRN PRN Reason: Heartburn/Nausea Apixaban (Apixaban 5 Mg Tablet) 5 mg PO BID [facility] Last Admin: 08/06/25 08:13 Dose: 5 mg Atorvastatin Calcium (Atorvastatin Calcium 20 Mg Tablet) 20 mg PO BEDTIME [facility] Last Admin: 08/05/25 20:22 Dose: 20 mg Divalproex Sodium (Divalproex Sodium 500 Mg Tablet.Dr) 500 mg PO BID [facility] Last Admin: 08/06/25 08:13 Dose: 500 mg Finasteride (Finasteride 5 Mg Tablet) 5 mg PO DAILY [facility] Last Admin: 08/06/25 08:12 Dose: 5 mg Hydroxyzine HCl (Hydroxyzine Hcl 25 Mg Tablet) 25 mg PO Q6H PRN PRN Reason: mild anxiety Lorazepam (Lorazepam 1 Mg Tablet) 1 mg PO Q6H PRN PRN Reason: severe agitation Last Admin: 08/06/25 08:12 Dose: 1 mg Magnesium Hydroxide (Milk Of Magnesia 30 Ml Oral.Susp) 30 ml PO DAILY PRN PRN Reason: Constipation Nicotine (Nicotine 21 Mg Patch.Td24) 21 mg TRANSDERMA DAILY PRN PRN Reason: nicotine craving Nicotine Polacrilex (Nicotine Polacrilex 2 Mg Gum) 2 mg BUCCAL Q2H PRN PRN Reason: Nicotine Cravings Olanzapine (Olanzapine 10 Mg Tablet) 10 mg PO BID [facility] Last Admin: 08/06/25 08:12 Dose: 10 mg Olanzapine (Olanzapine 5 Mg Tablet) 5 mg PO BID PRN PRN Reason: agitation Trazodone HCl (Trazodone Hcl 50 Mg Tablet) 50 mg PO BEDTIME MRX1 PRN PRN Reason: Insomnia Allergies Allergies Allergy/AdvReac Type Severity Reaction Status Date / Time No Known Allergies Allergy Verified 08/04/25 17:37 Assessment & Plan Assessment & Plan (1) Bipolar disorder with severe cam: Status: Acute Code(s): F31.13 - Bipolar disorder, current episode manic without psychotic features, severe Assessment and Plan: More dysregulated, hostile, having angry outburst and refusing medications. Earlier had been in better control and wanted to work in the yard with RN to help w/ yard. Exhibiting significant symptoms of mood do Plan to titrate VPA and target dose/range d/w patient yesterday. Will increse to 500 mg TID Continue PRN Olanzaoine but reduce frequency of Ativan as this may be contributing to increase disregulation/disinhibition on Olanzapine 10 mg BID scheduled (2) Cannabis abuse: Status: Acute Code(s): F12.10 - Cannabis abuse, uncomplicated Assessment and Plan: Psychoeducation, groups (3) PTSD (post-traumatic stress disorder): Status: Acute Code(s): F43.10 - Post-traumatic stress disorder, unspecified Assessment and Plan: self-reported---Patient is not a reliable historian given degree of disorganization (4) Type II diabetes mellitus: Status: Acute Code(s): E11.9 - Type 2 diabetes mellitus without complications Assessment and Plan: f/u by medical [employer]NAGER covering psychiatry--did not see HbA1C Request instructions/orders needed from medical team (5) A-fib: Status: Acute Code(s): I48.91 - Unspecified atrial fibrillation Assessment and Plan: Per medical [employer]GER covering psych/medical team recommendations Plan HPI: patient is a 75 [place] Speaking male with hx of Bipolar disorder who presents to the ED from home on a section 12 on 08/01/25. Patient has been experience worsening cam. He has not been eating, drinking or sleeping. Patient was combative when EMS arrived to his home. Patient was agitated, throwing chairs at people. Was given 2.5mg of Versed by EMS. Continue to yell, swear at staff, and combative after multiple attempted to direct, patient was physically and chemically restrained in the ED. Formulation/clinical reasoning: manic, poor sleep and appetite, irritable, agitated, loud, was Restrained in ED. Hx of Bipolar, and according to patient OCD, and PTSD. Significant symptoms of cam and untreated for unclear time. Patient appears to have had contact with [facility] and a prior [facility] hospital admission (remote) to [facility]. Given above presentation and some escalation today 08/06 in pm, patient would require inpatient stabilization in an [facility] and ongoing treatment including medication management, psychosocial interventions, family contact, obtain collateral information from family/providers if agreable, and participation in reccommended groups. Will provide psychoeducation and coordinate care/refer to OP services for ongoing medical and psychiatric management. Hospital course: 08/04/25: patient reports taking no meds at home for Bipolar and medication was started from ED Depakote 500mg BID. Will adjust to therapeutic dose. Level in 4 days or Zyprexa 10mg BID Eliquis 5mg BID Atorvastatin 20mg daily at HS Add Zyprexa 5mg BID PRN For agitation Add Ativan 1mg Q6hrs PRN for severe anxiety Plan Patient on 5 minute checks for safety. Admitted to S1. CV. Psychopharmacological assessment and mgmt as noted---goal VPA dose by weight ~2000 mg, will titrate and check levels Psychosocial assessment and interventions including groups/milieu mgmt Admission medical assessment and care with medicine as needed labs/diagnostic test. Discharge planing ED labs: Elevated on AST/ALT. Utox +BZD (was given Versed from EMS prior to be brought to ED, BAL negative). Reason for continued inpatient stay Substantial Risk for: harm to others, inability to function, rapid decompensation and other (impaired judgement with can place at risk of retaliatory behaviors if not in current setting) Time Spent With Patient Time: Total time managing care of this patient today ____ minutes.
[2025-08-06] MEDS: OLANZapine ODT 10 MG TAB.RAPDIS TRANSLINGU (16:49)
[2025-08-06 20:42] VITALS: BP 127/87; PULSE 65; RESP 16; TEMP 36.6; O2SAT 97
[2025-08-07 08:00] VITALS: BP 115/76; PULSE 58; RESP 18; TEMP 36.9; O2SAT 96
--- NOTE | 2025-08-07 10:14 | HO.PSYCHPN ---
Subjective Subjective Date of Service: 08/07/25 Reason For Visit: bipolar cam severe Subjective Notes: Sorto Warning and Conditional Voluntary Healthcare Proxy: No (no documentation of HCP in chart and scanned documents) Guardianship: No Interim History: our CC You a doctor? so you're like 'leanna amanda'? Like they say in [place], so use your brains Stopped briefly for lunch and resumed his loud conversation/monologue at the NS for nearly one more hour. Agreed to take Olanzapine + Ativan PO prn around 30 minutes ago and stated he would go to bed Remains hyperverbal, pressured, speech is uninterruptible and loud. Intrusive, irritable. Thinking significantly tangential, grandiose and makes general threatening statements conditional on perception others are targeting him or not providing the care she wants. Was at the nursing station, rambling for at least an hour without stopping. Has been requiring prn medications since arrival. Unclear if Ativan further disinhibiting thus lowered to q8 prn. VPA increased yesterday, gave highr PRN dose of Olanzapine. Continues on Olanzapine 10 mg BID Patient not maintaining boundaries, wanted to show his athletic figure to med WEIGHER OPERATOR, despite her asking not to. He said he wanted to show his muscles and took shirt off, and began flexing his muscles, puffing his chest. No SI/HI voiced. Poor tolerance to frustration, wants wishes immediately met. Episodically intimidating demeanors but with, refused medication offered to deescalate but agreed to go to room before briefly coming out and causing a disruption again. RN finally able to provide prn with much encouragement. Medication Compliance: Intermittent (at times refuses, particularly PRNs for agitation) Review of Systems Review of Systems Limited by mental status--- irritablle, agitated, argumentative and intrusive. Sarcastic tone. Less threatening but still posturing intimidating fashionintimidating Yes Other (no change from HPI) Constitutional: Reports as per HPI and Reports difficulty sleeping Eyes: Reports as per HPI Reports as per HPI Cardiovascular: Reports as per HPI Respiratory: Reports as per HPI Gastrointestinal: Reports as per HPI and Reports constipation Genitourinary: Reports as per HPI Musculoskeletal: Reports as per HPI Skin/Breast: Reports as per HPI Reports as per HPI, Reports Neuro-related abnormal movements (agitation) and Reports behavioral changes Psychiatric: Reports abnormal sleep pattern, Reports behavioral changes, Reports difficulty concentrating (cannot remain on topic ), Reports irritability, Reports mood swings, Reports paranoia and Reports other (general threatening statements) Endocrine: Reports as per HPI Hematologic/Lymphatic: Reports as per HPI Allergic/Immunologic: Reports as per HPI Mental Status Exam Mental Status Exam Narrative: Less verbal aggression and threats than voiced yesterday. Spoke at nursing station most day untin around 1430 or 1500 with only one interruption for yesterdaypoor boundaries with females, difficult to redirect Patient Appearance: Disheveled, Inappropriate (poor boundaries with females, difficult to redirect) and Perspiring Patient Orientation: Person, Place, Time (unable to assess due to cooperation) and Situation (limited by lack of cooperation, and becoming upset with questions as he spoke uninterruptedly and it was nearly impossible to get a word in) Level of Consciousness: Awake, Restless, Alert, Inappropriate (hostile, loud, agitated) and Combative (as above noted, vague threats toward others accompanied with hostility, posturing, walking towards MD in menacing fashion without respecting requests to provide space. Posturing.) Patient Behavior: Posturing, Hyperactive, Suspicious, Hypersexual (inappropriate boundaries ), Aggressive (verbally at times, not physically-), Restless, Belligerent, Swearing, Invasion - Personal Space, Distractible, Uncooperative (loud, argumentative, hostile), Impulsive and Poor Eye Contact (intense eye contact) Mood Description: Suspicious, Labile and Angry Affect Description: Hostile, Labile (labile, differing intensity of hostility/anger, briefly sobbing about a family member, switching to anger) and Angry Ability to Follow Directions: Poor (very limited ) Speech Pattern: Spontaneous Speech, Rambling, Rapid, Excessive, Loud, Pressured, Includes Profanity (uninterruptable mostly) and Excited Delusions: Paranoid Ideation (suspiciousness) and Grandiose Thought Process: Racing, Illogical and Rumination Thought Content: positive for Flight of Ideas, positive for Racing, positive for Circumstantial, positive for Perseveration, positive for Preoccupation, positive for Tangential and positive for Disorganized Abnormal Motor Activity Signs and Symptoms: Agitation, Hyperactivity and Restlessness Judgement: Poor (impairment noted) Diagnostics Vital Signs (24Hr): Vital Signs - 24 hr 08/06/25 20:42 08/07/25 08:00 Temperature 97.8 F 98.5 F Pulse Rate 65 58 Respiratory Rate 16 18 Blood Pressure 127/87 115/76 Pulse Oximetry 97 96 Oxygen Delivery Method Room Air Room Air BMI result Body Mass Index 30.6 Labs 08/05/25 07:19 Medications Medications Current Medications Acetaminophen (Acetaminophen 325 Mg Tablet) 650 mg PO Q6H PRN PRN Reason: Headache/Pain, Scale 1-10 Al Hydroxide/Mg Hydroxide (Magnesium Hydrox/Alum Hydrox 30 Ml Oral.Susp) 30 ml PO Q6H PRN PRN Reason: Heartburn/Nausea Apixaban (Apixaban 5 Mg Tablet) 5 mg PO BID [facility] Last Admin: 08/07/25 08:39 Dose: 5 mg Atorvastatin Calcium (Atorvastatin Calcium 20 Mg Tablet) 20 mg PO BEDTIME [facility] Last Admin: 08/06/25 20:39 Dose: 20 mg Divalproex Sodium (Divalproex Sodium 500 Mg Tablet.Dr) 500 mg PO TID [facility] Last Admin: 08/07/25 08:39 Dose: 500 mg Finasteride (Finasteride 5 Mg Tablet) 5 mg PO DAILY [facility] Last Admin: 08/07/25 08:39 Dose: 5 mg Hydroxyzine HCl (Hydroxyzine Hcl 25 Mg Tablet) 25 mg PO Q6H PRN PRN Reason: Anxiety Lorazepam (Lorazepam 1 Mg Tablet) 1 mg PO Q8H PRN PRN Reason: severe agitation with zyprexa Magnesium Hydroxide (Milk Of Magnesia 30 Ml Oral.Susp) 30 ml PO DAILY PRN PRN Reason: Constipation Nicotine (Nicotine 21 Mg Patch.Td24) 21 mg TRANSDERMA DAILY PRN PRN Reason: nicotine craving Nicotine Polacrilex (Nicotine Polacrilex 2 Mg Gum) 2 mg BUCCAL Q2H PRN PRN Reason: Nicotine Cravings Olanzapine (Olanzapine 10 Mg Tablet) 10 mg PO BID [facility] Last Admin: 08/07/25 08:39 Dose: 10 mg Trazodone HCl (Trazodone Hcl 50 Mg Tablet) 50 mg PO BEDTIME MRX1 PRN PRN Reason: Insomnia Allergies Allergies Allergy/AdvReac Type Severity Reaction Status Date / Time No Known Allergies Allergy Verified 08/04/25 17:37 Assessment & Plan Assessment & Plan (1) Bipolar disorder with severe cam: Status: Acute Code(s): F31.13 - Bipolar disorder, current episode manic without psychotic features, severe Assessment and Plan: More dysregulated, hostile, having angry outbursts and some resistance to prn and not consistently inconsistently accepting PRN medications. Less severe agitation this am but loudly talking non-stop for at least one hour in am at nursing station and continued on for another long period after lunch. Inappropriate and flirtatious with WEIGHER OPERATOR. Told her hed take shirt off to show off his muscles, which she advised not to. He still bared his chest and began posing and flexing muscles. Ongoing symptoms of cam, recent med changes. On , called alarmed asking to Told he was being dc'd on Sunday Shakira VPA titration VPA level Sunday--- monitor compliance Continue PRN Olanzaine with reduced frequency of Ativan as this may be contributing to increase disregulation/disinhibition Cont Olanzapine 10 mg BID scheduled (2) Cannabis abuse: Status: Acute Code(s): F12.10 - Cannabis abuse, uncomplicated Assessment and Plan: Psychoeducation, groups (3) PTSD (post-traumatic stress disorder): Status: Acute Code(s): F43.10 - Post-traumatic stress disorder, unspecified Assessment and Plan: self-reported---Patient is not a reliable historian given degree of disorganization (4) Type II diabetes mellitus: Status: Acute Code(s): E11.9 - Type 2 diabetes mellitus without complications Assessment and Plan: f/u by medical WEIGHER OPERATOR covering psychiatry--HbA1c OK f/u as needed by medical team (5) A-fib: Status: Acute Code(s): I48.91 - Unspecified atrial fibrillation Assessment and Plan: Per medical WEIGHER OPERATOR covering psych/medical team recommendations Plan HPI: patient is a 75 [place] Speaking male with hx of Bipolar disorder who presents to the ED from home on a section 12 on 08/01/25. Patient has been experience worsening cam. He has not been eating, drinking or sleeping. Patient was combative when EMS arrived to his home. Patient was agitated, throwing chairs at people. Was given 2.5mg of Versed by EMS. Continue to yell, swear at staff, and combative after multiple attempted to direct, patient was physically and chemically restrained in the ED. Formulation/clinical reasoning: manic, poor sleep and appetite, irritable, agitated, loud, not sleeping and full of energy. SW communicated with who indicates sxs escalating. Only one prior known episode with hospitalization at [facility] . Per 4th : Until recently no symptoms and no tx since they have been together (~ 20 yrs ). Restrained in ED. And according to patient OCD, and PTSD. Significant symptoms of cam and untreated and generally asymptomatic for extended time. Patient may have had contact with [facility] system and a prior state admission to [facility]. Given presentation presentation, patient still require inpatient stabilization in an [facility] for ongoing treatment including medication management, psychosocial interventions, family contact, obtain collateral information from family/providers if agreeable, and participation in reccommended groups. Will provide psychoeducation as tolerated and coordinate care/refer to OP services for ongoing medical and psychiatric management. Hospital course: 08/04/25: patient reports taking no meds at home for Bipolar and medication was started from ED Depakote 500mg BID. Will adjust to therapeutic dose. Level in 4 days or Zyprexa 10mg BID Eliquis 5mg BID Atorvastatin 20mg daily at HS Add Zyprexa 5mg BID PRN For agitation Add Ativan 1mg Q6hrs PRN for severe anxiety Plan Patient on 5 minute checks for safety. Admitted to S1. CV. Psychopharmacological assessment and mgmt as noted---goal VPA dose by weight ~2000 mg, will titrate and check levels Psychosocial assessment and interventions including groups/milieu mgmt Admission medical assessment and care with medicine as needed labs/diagnostic test. Discharge planing ED labs: Elevated on AST/ALT. Utox +BZD (was given Versed from EMS prior to be brought to ED, BAL negative). Reason for continued inpatient stay Substantial Risk for: inability to function, rapid decompensation, med/psych decompensation and other (impaired judgement) Time Spent With Patient Time: Total time managing care of this patient today ____ minutes.
[2025-08-07 20:00] VITALS: BP 130/91; PULSE 87; RESP 16; TEMP 36.4; O2SAT 100
[2025-08-08 08:00] VITALS: BP 147/91; PULSE 82; RESP 18; TEMP 36.8; O2SAT 98
[2025-08-08 20:00] VITALS: BP 136/89; PULSE 104; RESP 18; TEMP 36.4; O2SAT 97
[2025-08-08] MEDS: Throat Lozenge, Medicated LOZENGE 1 LOZENGE MUCOUS MEM (20:07)
--- NOTE | 2025-08-08 21:55 | P.PNPSI_ITS ---
Subjective Subjective Date of Service: 08/08/25 Reason For Visit: bipolar cam severe Subjective Notes: Conditional Voluntary Healthcare Proxy: No Guardianship: No Medical Problems Affecting Mental Status: No Interim History: Patient seen in his room. He was initially lying down, though he quickly got up to communicate with marine underwriter. He states that he's doing great. He appeared labile and expansive. He acknowledged that he has been talking too much. He states that his family is worried about him and that he does not want to scare them. He voices understanding that he needs to remain in the hospital to continue to stabilize. He asked about being started on a multivitamin, and having access to lozenges for sore throat. Medication Compliance: Yes Side effects from medications: No Attending Groups: No Review of Systems Acute medical concerns: No Medical Review of Systems: unchanged Review of Systems Review of Systems Yes all other systems are reviewed and are negative Mental Status Exam Mental Status Exam Narrative: adequate hygiene Patient Behavior: Appropriate Level of Consciousness: Awake, alert Patient Orientation: Person, Place and Time, situational context Memory: grossly intact to recent events Psychomotor: no agitation or slowing Speech: normal rate, tone, volume Mood: ?okay? Affect: expansive Thought Process: flight of ideas Thought Content: denies SI/HI; focused on treatment questions Hallucinations: Denies; does not appear preoccupied Delusions: None evinced Insight: mild impairment Judgment: significant impairment Impulsivity: low Diagnostics Vital Signs (24Hr): Vital Signs - 24 hr 08/08/25 08:00 08/08/25 20:00 Temperature 98.2 F 97.5 F Pulse Rate 82 104 H Respiratory Rate 18 18 Blood Pressure 147/91 H 136/89 Pulse Oximetry 98 97 Oxygen Delivery Method Room Air Room Air BMI result Body Mass Index 30.6 Labs 08/05/25 07:19 Medications Medications Current Medications Acetaminophen (Acetaminophen 325 Mg Tablet) 650 mg PO Q6H PRN PRN Reason: Headache/Pain, Scale 1-10 Last Admin: 08/07/25 20:00 Dose: 650 mg Al Hydroxide/Mg Hydroxide (Magnesium Hydrox/Alum Hydrox 30 Ml Oral.Susp) 30 ml PO Q6H PRN PRN Reason: Heartburn/Nausea Apixaban (Apixaban 5 Mg Tablet) 5 mg PO BID [facility] Last Admin: 08/08/25 20:03 Dose: 5 mg Atorvastatin Calcium (Atorvastatin Calcium 20 Mg Tablet) 20 mg PO BEDTIME [facility] Last Admin: 08/08/25 20:03 Dose: 20 mg Benzocaine (Throat Lozenge, Medicated Lozenge) 1 lozenge MUCOUS MEM Q2H PRN PRN Reason: Sore Throat Last Admin: 08/08/25 20:07 Dose: 1 lozenge Divalproex Sodium (Divalproex Sodium 500 Mg Tablet.Dr) 500 mg PO TID [facility] Last Admin: 08/08/25 20:03 Dose: 500 mg Docusate Sodium (Docusate Sodium 100 Mg Capsule) 100 mg PO BEDTIME [facility] Last Admin: 08/08/25 20:04 Dose: 100 mg Finasteride (Finasteride 5 Mg Tablet) 5 mg PO DAILY [facility] Last Admin: 08/08/25 08:59 Dose: 5 mg Hydroxyzine HCl (Hydroxyzine Hcl 25 Mg Tablet) 25 mg PO Q6H PRN PRN Reason: Anxiety Last Admin: 08/08/25 08:59 Dose: 25 mg Lorazepam (Lorazepam 1 Mg Tablet) 1 mg PO Q8H PRN PRN Reason: severe agitation with zyprexa Last Admin: 08/08/25 08:59 Dose: 1 mg Magnesium Hydroxide (Milk Of Magnesia 30 Ml Oral.Susp) 30 ml PO DAILY PRN PRN Reason: Constipation Multivitamins/Vitamin C (Multivitamin Tablet) 1 tab PO DAILY [facility] Nicotine (Nicotine 21 Mg Patch.Td24) 21 mg TRANSDERMA DAILY PRN PRN Reason: nicotine craving Nicotine Polacrilex (Nicotine Polacrilex 2 Mg Gum) 2 mg BUCCAL Q2H PRN PRN Reason: Nicotine Cravings Olanzapine (Olanzapine 10 Mg Tablet) 10 mg PO BID [facility] Last Admin: 08/08/25 20:03 Dose: 10 mg Olanzapine (Olanzapine 5 Mg Tablet) 5 mg PO Q6H PRN PRN Reason: psychosis, agitation Trazodone HCl (Trazodone Hcl 50 Mg Tablet) 50 mg PO BEDTIME MRX1 PRN PRN Reason: Insomnia Allergies Allergies Allergy/AdvReac Type Severity Reaction Status Date / Time No Known Allergies Allergy Verified 08/04/25 17:37 Assessment & Plan Assessment & Plan (1) Bipolar disorder with severe cam: Status: Acute Code(s): F31.13 - Bipolar disorder, current episode manic without psychotic features, severe Assessment and Plan: More dysregulated, hostile, having angry outbursts and some resistance to prn and not consistently inconsistently accepting PRN medications. Less severe agitation this am but loudly talking non-stop for at least one hour in am at nursing station and continued on for another long period after lunch. Inappropriate and flirtatious with BRAND ATTENDANT. Told her hed take shirt off to show off his muscles, which she advised not to. He still bared his chest and began posing and flexing muscles. Ongoing symptoms of cam, recent med changes. On CV, called alarmed asking to Told he was being dc'd on Sunday Shakira VPA titration VPA level Sunday--- monitor compliance Continue PRN Olanzaine with reduced frequency of Ativan as this may be contributing to increase disregulation/disinhibition Cont Olanzapine 10 mg BID scheduled (2) Cannabis abuse: Status: Acute Code(s): F12.10 - Cannabis abuse, uncomplicated Assessment and Plan: Psychoeducation, groups (3) PTSD (post-traumatic stress disorder): Status: Acute Code(s): F43.10 - Post-traumatic stress disorder, unspecified Assessment and Plan: self-reported---Patient is not a reliable historian given degree of disorganization (4) Type II diabetes mellitus: Status: Acute Code(s): E11.9 - Type 2 diabetes mellitus without complications Assessment and Plan: f/u by medical BRAND ATTENDANT covering psychiatry--HbA1c OK f/u as needed by medical team (5) A-fib: Status: Acute Code(s): I48.91 - Unspecified atrial fibrillation Assessment and Plan: Per medical BRAND ATTENDANT covering psych/medical team recommendations Plan HPI: patient is a 75 [place] Speaking male with hx of Bipolar disorder who presents to the ED from home on a section 12 on 08/01/25. Patient has been experience worsening cam. He has not been eating, drinking or sleeping. Patient was combative when EMS arrived to his home. Patient was agitated, throwing chairs at people. Was given 2.5mg of Versed by EMS. Continue to yell, swear at staff, and combative after multiple attempted to direct, patient was physically and chemically restrained in the ED. Formulation/clinical reasoning: manic, poor sleep and appetite, irritable, agitated, loud, not sleeping and full of energy. SW communicated with who indicates sxs escalating. Only one prior known episode with hospitalization at [facility] . Per 4th : Until recently no symptoms and no tx since they have been together (~ 20 yrs ). Restrained in ED. And according to patient OCD, and PTSD. Significant symptoms of cam and untreated and generally asymptomatic for extended time. Patient may have had contact with [facility] system and a prior state admission to [facility]. Given presentation presentation, patient still require inpatient stabilization in an [facility] for ongoing treatment including medication management, psychosocial interventions, family contact, obtain collateral information from family/providers if agreeable, and participation in reccommended groups. Will provide psychoeducation as tolerated and coordinate care/refer to OP services for ongoing medical and psychiatric management. Hospital course: 08/04/25: patient reports taking no meds at home for Bipolar and medication was started from ED Depakote 500mg BID. Will adjust to therapeutic dose. Level in 4 days or Zyprexa 10mg BID Eliquis 5mg BID Atorvastatin 20mg daily at HS Add Zyprexa 5mg BID PRN For agitation Add Ativan 1mg Q6hrs PRN for severe anxiety Plan Patient on 5 minute checks for safety. Admitted to S1. CV. Psychopharmacological assessment and mgmt as noted---goal VPA dose by weight ~2000 mg, will titrate and check levels Psychosocial assessment and interventions including groups/milieu mgmt Admission medical assessment and care with medicine as needed labs/diagnostic test. Discharge planing ED labs: Elevated on AST/ALT. Utox +BZD (was given Versed from EMS prior to be brought to ED, BAL negative). 08/08 added multivitamin, cepacol Patient educated on: diagnosis and medication risk/benefits Informed Consent: understands Reason for continued inpatient stay Substantial Risk for: inability to function and rapid decompensation Time Spent With Patient Time: Total time managing care of this patient today _15___ minutes.
[2025-08-09 08:00] VITALS: BP 142/77; PULSE 84; RESP 16; TEMP 36.6; O2SAT 98
[2025-08-09] MEDS: Throat Lozenge, Medicated LOZENGE 1 LOZENGE MUCOUS MEM ×2 (15:14→20:57)
--- NOTE | 2025-08-09 16:33 | HO.PSYCHPN ---
Subjective Subjective Date of Service: 08/09/25 Reason For Visit: bipolar cam severe Subjective Notes: Conditional Voluntary Healthcare Proxy: No Guardianship: No Medical Problems Affecting Mental Status: No Interim History: Patient seen in the day area playing cards with a peer. He states that he's doing good. He appeared labile and expansive but a bit less so than yesterday. He acknowledged that he can't hide his irritation with others. He denies SI/HI/AVH. He asks about discharge otherwise denies any acute concerns about his care at this time. Medication Compliance: Yes Side effects from medications: No Attending Groups: Intermittent Review of Systems Acute medical concerns: No Medical Review of Systems: unchanged Review of Systems Review of Systems Yes all other systems are reviewed and are negative Mental Status Exam Mental Status Exam Narrative: Patient Appearance: Well Groomed, adequate hygiene Patient Behavior: Appropriate Level of Consciousness: Awake, alert Patient Orientation: Person, Place and Time, situational context Memory: grossly intact to recent events Psychomotor: no agitation or slowing Speech: normal rate, tone, volume Mood: ?okay? Affect: expansive Thought Process: Goal Oriented Thought Content: denies SI/HI; focused on discharge questions Hallucinations: Denies; does not appear preoccupied Delusions: None evinced Insight: mild impairment Judgment: mild impairment Impulsivity: low Diagnostics Vital Signs (24Hr): Vital Signs - 24 hr 08/08/25 20:00 08/09/25 08:00 Temperature 97.5 F 98 F Pulse Rate 104 H 84 Respiratory Rate 18 16 Blood Pressure 136/89 142/77 H Pulse Oximetry 97 98 Oxygen Delivery Method Room Air Room Air BMI result Body Mass Index 30.6 Labs 08/05/25 07:19 Medications Medications Current Medications Acetaminophen (Acetaminophen 325 Mg Tablet) 650 mg PO Q6H PRN PRN Reason: Headache/Pain, Scale 1-10 Last Admin: 08/07/25 20:00 Dose: 650 mg Al Hydroxide/Mg Hydroxide (Magnesium Hydrox/Alum Hydrox 30 Ml Oral.Susp) 30 ml PO Q6H PRN PRN Reason: Heartburn/Nausea Apixaban (Apixaban 5 Mg Tablet) 5 mg PO BID [facility] Last Admin: 08/09/25 08:49 Dose: 5 mg Atorvastatin Calcium (Atorvastatin Calcium 20 Mg Tablet) 20 mg PO BEDTIME [facility] Last Admin: 08/08/25 20:03 Dose: 20 mg Benzocaine (Throat Lozenge, Medicated Lozenge) 1 lozenge MUCOUS MEM Q2H PRN PRN Reason: Sore Throat Last Admin: 08/09/25 15:14 Dose: 1 lozenge Divalproex Sodium (Divalproex Sodium 500 Mg Tablet.Dr) 500 mg PO TID [facility] Last Admin: 08/09/25 15:03 Dose: 500 mg Docusate Sodium (Docusate Sodium 100 Mg Capsule) 100 mg PO BEDTIME [facility] Last Admin: 08/08/25 20:04 Dose: 100 mg Finasteride (Finasteride 5 Mg Tablet) 5 mg PO DAILY [facility] Last Admin: 08/09/25 08:49 Dose: 5 mg Hydroxyzine HCl (Hydroxyzine Hcl 25 Mg Tablet) 25 mg PO Q6H PRN PRN Reason: Anxiety Last Admin: 08/08/25 08:59 Dose: 25 mg Lorazepam (Lorazepam 1 Mg Tablet) 1 mg PO Q8H PRN PRN Reason: severe agitation with zyprexa Last Admin: 08/08/25 08:59 Dose: 1 mg Magnesium Hydroxide (Milk Of Magnesia 30 Ml Oral.Susp) 30 ml PO DAILY PRN PRN Reason: Constipation Multivitamins/Vitamin C (Multivitamin Tablet) 1 tab PO DAILY [facility] Last Admin: 08/09/25 08:49 Dose: 1 tab Nicotine (Nicotine 21 Mg Patch.Td24) 21 mg TRANSDERMA DAILY PRN PRN Reason: nicotine craving Nicotine Polacrilex (Nicotine Polacrilex 2 Mg Gum) 2 mg BUCCAL Q2H PRN PRN Reason: Nicotine Cravings Olanzapine (Olanzapine 10 Mg Tablet) 10 mg PO BID [facility] Last Admin: 08/09/25 08:49 Dose: 10 mg Olanzapine (Olanzapine 5 Mg Tablet) 5 mg PO Q6H PRN PRN Reason: psychosis, agitation Last Admin: 08/09/25 15:05 Dose: 5 mg Trazodone HCl (Trazodone Hcl 50 Mg Tablet) 50 mg PO BEDTIME MRX1 PRN PRN Reason: Insomnia Last Admin: 08/08/25 23:21 Dose: 50 mg Allergies Allergies Allergy/AdvReac Type Severity Reaction Status Date / Time No Known Allergies Allergy Verified 08/04/25 17:37 Assessment & Plan Assessment & Plan (1) Bipolar disorder with severe cam: Status: Acute Code(s): F31.13 - Bipolar disorder, current episode manic without psychotic features, severe Assessment and Plan: More dysregulated, hostile, having angry outbursts and some resistance to prn and not consistently inconsistently accepting PRN medications. Less severe agitation this am but loudly talking non-stop for at least one hour in am at nursing station and continued on for another long period after lunch. Inappropriate and flirtatious with IS PROJECT MANAGER. Told her hed take shirt off to show off his muscles, which she advised not to. He still bared his chest and began posing and flexing muscles. Ongoing symptoms of cam, recent med changes. On , called alarmed asking to Told he was being dc'd on Sunday Shakira VPA titration VPA level Sunday--- monitor compliance Continue PRN Olanzaine with reduced frequency of Ativan as this may be contributing to increase disregulation/disinhibition Cont Olanzapine 10 mg BID scheduled (2) Cannabis abuse: Status: Acute Code(s): F12.10 - Cannabis abuse, uncomplicated Assessment and Plan: Psychoeducation, groups (3) PTSD (post-traumatic stress disorder): Status: Acute Code(s): F43.10 - Post-traumatic stress disorder, unspecified Assessment and Plan: self-reported---Patient is not a reliable historian given degree of disorganization (4) Type II diabetes mellitus: Status: Acute Code(s): E11.9 - Type 2 diabetes mellitus without complications Assessment and Plan: f/u by medical IS PROJECT MANAGER covering psychiatry--HbA1c OK f/u as needed by medical team (5) A-fib: Status: Acute Code(s): I48.91 - Unspecified atrial fibrillation Assessment and Plan: Per medical IS PROJECT MANAGER covering psych/medical team recommendations Plan HPI: patient is a 75 Slovenian Speaking male with hx of Bipolar disorder who presents to the ED from home on a section 12 on 08/01/25. Patient has been experience worsening cam. He has not been eating, drinking or sleeping. Patient was combative when EMS arrived to his home. Patient was agitated, throwing chairs at people. Was given 2.5mg of Versed by EMS. Continue to yell, swear at staff, and combative after multiple attempted to direct, patient was physically and chemically restrained in the ED. Formulation/clinical reasoning: manic, poor sleep and appetite, irritable, agitated, loud, not sleeping and full of energy. SW communicated with who indicates sxs escalating. Only one prior known episode with hospitalization at [facility]. . Per 4th : Until recently no symptoms and no tx since they have been together (~ 20 yrs ). Restrained in ED. And according to patient OCD, and PTSD. Significant symptoms of cam and untreated and generally asymptomatic for extended time. Patient may have had contact with [facility] system and a prior state admission to [facility]. Given presentation presentation, patient still require inpatient stabilization in an [facility] for ongoing treatment including medication management, psychosocial interventions, family contact, obtain collateral information from family/providers if agreeable, and participation in reccommended groups. Will provide psychoeducation as tolerated and coordinate care/refer to OP services for ongoing medical and psychiatric management. Hospital course: 08/04/25: patient reports taking no meds at home for Bipolar and medication was started from ED Depakote 500mg BID. Will adjust to therapeutic dose. Level in 4 days or Zyprexa 10mg BID Eliquis 5mg BID Atorvastatin 20mg daily at HS Add Zyprexa 5mg BID PRN For agitation Add Ativan 1mg Q6hrs PRN for severe anxiety Plan Patient on 5 minute checks for safety. Admitted to S1. CV. Psychopharmacological assessment and mgmt as noted---goal VPA dose by weight ~2000 mg, will titrate and check levels Psychosocial assessment and interventions including groups/milieu mgmt Admission medical assessment and care with medicine as needed labs/diagnostic test. Discharge planing ED labs: Elevated on AST/ALT. Utox +BZD (was given Versed from EMS prior to be brought to ED, BAL negative). 08/08 added multivitamin, cepacol 08/09: no change Patient educated on: diagnosis and medication risk/benefits Informed Consent: understands Reason for continued inpatient stay Substantial Risk for: inability to function and rapid decompensation Time Spent With Patient Time: Total time managing care of this patient today _15___ minutes.
[2025-08-09 20:00] VITALS: BP 113/63; PULSE 89; RESP 16; TEMP 36.5; O2SAT 96
[2025-08-10 09:16] VITALS: BP 116/59; PULSE 84; RESP 18; TEMP 36.6; O2SAT 98
--- NOTE | 2025-08-10 09:20 | HO.PSYCHPN ---
Subjective Subjective Date of Service: 08/10/25 Reason For Visit: bipolar cam severe Subjective Notes: Sorto Warning and Conditional Voluntary Guardianship: No Medical Problems Affecting Mental Status: No Interim History: I cannot understand any thing she says (). I still like her... A bit less agitated, still intrusive, pressured and grandiose Medication Compliance: Intermittent (partial. Declined Colace even though he reported constipation to MD and agreed to it) Side effects from medications: No Review of Systems Acute medical concerns: No Medical Review of Systems: unchanged Review of Systems Review of Systems no new complaints/concerns Mental Status Exam Mental Status Exam Patient Appearance: Disheveled and Unkempt Patient Orientation: Person, Place, Time and Situation Level of Consciousness: Awake, Restless and Inappropriate (intrusive, needs redirection re: boundaries) Patient Behavior: Guarded, Talkative, Hyperactive, Suspicious, Invasion - Personal Space, Distractible and Pacing Mood Description: Labile Affect Description: Suspicious and Labile Ability to Follow Directions: Fair Speech Pattern: Perseverating, Spontaneous Speech, Rambling, Rapid, Excessive, Loud and Pressured Memory Description: Intact (on superficial assessment only, unable to further assess as uncooperative and symptomatic) Delusions: Paranoid Ideation (no jeanette delusions) and Grandiose Thought Process: Racing Thought Content: positive for Flight of Ideas, positive for Circumstantial, positive for Perseveration, positive for Tangential, negative for Suicidal Ideation or negative for Homicidal Ideation Judgement: Poor (limited) Diagnostics Vital Signs (24Hr): Vital Signs - 24 hr 08/09/25 20:00 08/10/25 09:16 Temperature 97.7 F 97.9 F Pulse Rate 89 84 Respiratory Rate 16 18 Blood Pressure 113/63 116/59 L Pulse Oximetry 96 98 Oxygen Delivery Method Room Air Room Air BMI result Body Mass Index 30.6 Labs 08/05/25 07:19 Labs: Laboratory Results - last 48 hr 08/10/25 07:21 Valproic Acid 86.6 Medications Medications Current Medications Acetaminophen (Acetaminophen 325 Mg Tablet) 650 mg PO Q6H PRN PRN Reason: Headache/Pain, Scale 1-10 Last Admin: 08/07/25 20:00 Dose: 650 mg Al Hydroxide/Mg Hydroxide (Magnesium Hydrox/Alum Hydrox 30 Ml Oral.Susp) 30 ml PO Q6H PRN PRN Reason: Heartburn/Nausea Apixaban (Apixaban 5 Mg Tablet) 5 mg PO BID [facility] Last Admin: 08/10/25 09:18 Dose: 5 mg Atorvastatin Calcium (Atorvastatin Calcium 20 Mg Tablet) 20 mg PO BEDTIME [facility] Last Admin: 08/09/25 20:53 Dose: 20 mg Benzocaine (Throat Lozenge, Medicated Lozenge) 1 lozenge MUCOUS MEM Q2H PRN PRN Reason: Sore Throat Last Admin: 08/09/25 20:57 Dose: 1 lozenge Divalproex Sodium (Divalproex Sodium 500 Mg Tablet.Dr) 500 mg PO TID [facility] Last Admin: 08/10/25 09:18 Dose: 500 mg Docusate Sodium (Docusate Sodium 100 Mg Capsule) 100 mg PO BEDTIME [facility] Last Admin: 08/09/25 23:05 Dose: Not Given Finasteride (Finasteride 5 Mg Tablet) 5 mg PO DAILY [facility] Last Admin: 08/10/25 09:17 Dose: 5 mg Hydroxyzine HCl (Hydroxyzine Hcl 25 Mg Tablet) 25 mg PO Q6H PRN PRN Reason: Anxiety Last Admin: 08/08/25 08:59 Dose: 25 mg Lorazepam (Lorazepam 1 Mg Tablet) 1 mg PO Q8H PRN PRN Reason: severe agitation with zyprexa Last Admin: 08/10/25 00:20 Dose: 1 mg Magnesium Hydroxide (Milk Of Magnesia 30 Ml Oral.Susp) 30 ml PO DAILY PRN PRN Reason: Constipation Multivitamins/Vitamin C (Multivitamin Tablet) 1 tab PO DAILY [facility] Last Admin: 08/10/25 09:18 Dose: 1 tab Nicotine (Nicotine 21 Mg Patch.Td24) 21 mg TRANSDERMA DAILY PRN PRN Reason: nicotine craving Nicotine Polacrilex (Nicotine Polacrilex 2 Mg Gum) 2 mg BUCCAL Q2H PRN PRN Reason: Nicotine Cravings Olanzapine (Olanzapine 10 Mg Tablet) 10 mg PO BID [facility] Last Admin: 08/10/25 09:18 Dose: 10 mg Olanzapine (Olanzapine 5 Mg Tablet) 5 mg PO Q6H PRN PRN Reason: psychosis, agitation Last Admin: 08/09/25 15:05 Dose: 5 mg Trazodone HCl (Trazodone Hcl 50 Mg Tablet) 50 mg PO BEDTIME MRX1 PRN PRN Reason: Insomnia Last Admin: 08/10/25 00:20 Dose: 50 mg Allergies Allergies Allergy/AdvReac Type Severity Reaction Status Date / Time No Known Allergies Allergy Verified 08/04/25 17:37 Assessment & Plan Assessment & Plan (1) Bipolar disorder with severe cam: Status: Acute Code(s): F31.13 - Bipolar disorder, current episode manic without psychotic features, severe Assessment and Plan: More dysregulated, hostile, having angry outbursts and some resistance to prn and not consistently inconsistently accepting PRN medications. Less severe agitation this am but loudly talking non-stop for at least one hour in am at nursing station and continued on for another long period after lunch. Inappropriate and flirtatious with COMPUTER INFORMATION SYSTEMS PROFESSOR. Told her hed take shirt off to show off his muscles, which she advised not to. He still bared his chest and began posing and flexing muscles. Ongoing symptoms of cam, recent med changes. On , called alarmed asking to Told he was being dc'd on Sunday Continue current medication mgmt plan VPA level therapeutic monitor compliance Continue PRN Olanzaine and reduce frequency of Ativan as this may be contributing to increase disregulation/disinhibition Cont Olanzapine 10 mg BID scheduled (2) Cannabis abuse: Status: Acute Code(s): F12.10 - Cannabis abuse, uncomplicated Assessment and Plan: Psychoeducation, groups (3) PTSD (post-traumatic stress disorder): Status: Acute Code(s): F43.10 - Post-traumatic stress disorder, unspecified Assessment and Plan: self-reported---Patient is not a reliable historian given degree of disorganization (4) Type II diabetes mellitus: Status: Acute Code(s): E11.9 - Type 2 diabetes mellitus without complications Assessment and Plan: f/u by medical COMPUTER INFORMATION SYSTEMS PROFESSOR covering psychiatry--HbA1c OK f/u as needed by medical team (5) A-fib: Status: Acute Code(s): I48.91 - Unspecified atrial fibrillation Assessment and Plan: Per medical COMPUTER INFORMATION SYSTEMS PROFESSOR covering psych/medical team recommendations Plan HPI: patient is a 75 Ethiopian Speaking male with hx of Bipolar disorder who presents to the ED from home on a section 12 on 08/01/25. Patient has been experience worsening cam. He has not been eating, drinking or sleeping. Patient was combative when EMS arrived to his home. Patient was agitated, throwing chairs at people. Was given 2.5mg of Versed by EMS. Continue to yell, swear at staff, and combative after multiple attempted to direct, patient was physically and chemically restrained in the ED. Formulation/clinical reasoning: manic, poor sleep and appetite, irritable, agitated, loud, not sleeping and full of energy. SW communicated with who indicates sxs escalating. Only one prior known episode with hospitalization at [facility]. . Per 4th : Until recently no symptoms and no tx since they have been together (~ 20 yrs ). Restrained in ED. And according to patient OCD, and PTSD. Significant symptoms of cam and untreated and generally asymptomatic for extended time. Patient may have had contact with [facility] system and a prior state admission to [facility]. Given presentation presentation, patient still require inpatient stabilization in an [facility] for ongoing treatment including medication management, psychosocial interventions, family contact, obtain collateral information from family/providers if agreeable, and participation in reccommended groups. Will provide psychoeducation as tolerated and coordinate care/refer to OP services for ongoing medical and psychiatric management. Hospital course: 08/04/25: patient reports taking no meds at home for Bipolar and medication was started from ED Depakote 500mg BID. Will adjust to therapeutic dose. Level in 4 days or Zyprexa 10mg BID Eliquis 5mg BID Atorvastatin 20mg daily at HS Add Zyprexa 5mg BID PRN For agitation Add Ativan 1mg Q6hrs PRN for severe anxiety Plan Patient on 5 minute checks for safety. Admitted to S1. CV. Psychopharmacological assessment and mgmt as noted---goal VPA dose by weight ~2000 mg, will titrate and check levels Psychosocial assessment and interventions including groups/milieu mgmt Admission medical assessment and care with medicine as needed labs/diagnostic test. Discharge planing ED labs: Elevated on AST/ALT. Utox +BZD (was given Versed from EMS prior to be brought to ED, BAL negative). 08/08 added multivitamin, cepacol 08/09: no change 08/10 Therapeutic level of VPA, still symptomatic, but less irritable overall. Logorrheic, intrusive, pressured and labile. Reducing Ativan, monitor PRN use Patient educated on: diagnosis, medication risk/benefits, substance abuse, therapeutic strategies and other Informed Consent: understands and further education needed Reason for continued inpatient stay Substantial Risk for: inability to function, rapid decompensation and med/psych decompensation Time Spent With Patient Time: Total time managing care of this patient today _35___ minutes.
[2025-08-10] MEDS: Throat Lozenge, Medicated LOZENGE 1 LOZENGE MUCOUS MEM (14:32)
[2025-08-10 19:53] VITALS: BP 121/65; PULSE 98; RESP 18; TEMP 36.2; O2SAT 98
[2025-08-11 08:00] VITALS: BP 137/81; PULSE 94; RESP 18; TEMP 36.2; O2SAT 96
[2025-08-11] MEDS: Throat Lozenge, Medicated LOZENGE 1 LOZENGE MUCOUS MEM ×2 (08:45→15:08)
--- NOTE | 2025-08-11 11:25 | HO.PSYCHPN ---
Subjective Subjective Date of Service: 08/11/25 Reason For Visit: bipolar cam severe Subjective Notes: Sorto Warning and Conditional Voluntary Guardianship: No Interim History: Was a bit sedated yesterday possibly due to PRN. Quite irritable today, making remarks about MD not speaking Azeri and not wanting to work with me bc he doesn't understand what I tell him, despite his responding to questions or conversation without difficulty Spoke to this am who states symptoms developped over several months this year. She did not know he had a hx Bipolar, she denied change in THC consumption. He was angrier, behaved like an a...hole but it happened gradually until requiring admission. He had been talking about a flew over coelinor's nest and saying that was him. While she felt he was calmer and seemed to be improving, based on her conversations she did not feel he was ok for dc, Medication Compliance: Yes Side effects from medications: No Review of Systems Acute medical concerns: No Medical Review of Systems: unchanged Review of Systems Review of Systems no new complaints/concerns Yes all other systems are reviewed and are negative and Other (no change from HPI) Constitutional: Reports as per HPI and Reports difficulty sleeping Eyes: Reports as per HPI Reports as per HPI Cardiovascular: Reports as per HPI Respiratory: Reports as per HPI Gastrointestinal: Reports as per HPI and Reports constipation Genitourinary: Reports as per HPI Musculoskeletal: Reports as per HPI Skin/Breast: Reports as per HPI Reports as per HPI, Reports Neuro-related abnormal movements (agitation) and Reports behavioral changes Psychiatric: Reports abnormal sleep pattern, Reports behavioral changes, Reports difficulty concentrating (cannot remain on topic ), Reports irritability, Reports mood swings, Reports paranoia and Reports other (general threatening statements) Endocrine: Reports as per HPI Hematologic/Lymphatic: Reports as per HPI Allergic/Immunologic: Reports as per HPI Mental Status Exam Mental Status Exam Patient Appearance: Disheveled and Unkempt Patient Orientation: Person, Place, Time and Situation Level of Consciousness: Awake, Restless, Alert and Inappropriate (intrusive, needs redirection re: boundaries, verbally aggressive, racially focused and at times clearly insulting) Patient Behavior: Talkative, Posturing (hostile demeanors), Hyperactive, Suspicious, Aggressive (verbally), Restless, Invasion - Personal Space, Distractible, Uncooperative and Pacing Mood Description: Hostile, Labile and Angry Affect Description: Suspicious, Labile and Angry Ability to Follow Directions: Fair (limitetd) Speech Pattern: Perseverating, Spontaneous Speech, Rambling, Rapid, Excessive, Loud and Pressured Memory Description: Intact (on superficial assessment only, unable to further assess as uncooperative and symptomatic) Hallucinations: None (denies) Delusions: Paranoid Ideation and Grandiose Thought Process: Racing (disjointed, tangential) Thought Content: positive for Flight of Ideas, positive for Racing, positive for Perseveration, positive for Preoccupation, positive for Tangential, positive for Disorganized, negative for Suicidal Ideation or negative for Homicidal Ideation Abnormal Motor Activity Signs and Symptoms: Hyperactivity Judgement: Poor (limited, impaired) Diagnostics Vital Signs (24Hr): Vital Signs - 24 hr 08/10/25 19:53 08/11/25 08:00 Temperature 97.2 F 97.2 F Pulse Rate 98 94 Respiratory Rate 18 18 Blood Pressure 121/65 137/81 Pulse Oximetry 98 96 Oxygen Delivery Method Room Air Room Air BMI result Body Mass Index 30.6 Labs 08/05/25 07:19 Labs: Laboratory Results - last 48 hr 08/10/25 07:21 Valproic Acid 86.6 Medications Medications Current Medications Acetaminophen (Acetaminophen 325 Mg Tablet) 650 mg PO Q6H PRN PRN Reason: Headache/Pain, Scale 1-10 Last Admin: 08/07/25 20:00 Dose: 650 mg Al Hydroxide/Mg Hydroxide (Magnesium Hydrox/Alum Hydrox 30 Ml Oral.Susp) 30 ml PO Q6H PRN PRN Reason: Heartburn/Nausea Apixaban (Apixaban 5 Mg Tablet) 5 mg PO BID [facility] Last Admin: 08/11/25 08:46 Dose: 5 mg Atorvastatin Calcium (Atorvastatin Calcium 20 Mg Tablet) 20 mg PO BEDTIME [facility] Last Admin: 08/10/25 19:54 Dose: 20 mg Benzocaine (Throat Lozenge, Medicated Lozenge) 1 lozenge MUCOUS MEM Q2H PRN PRN Reason: Sore Throat Last Admin: 08/11/25 08:45 Dose: 1 lozenge Divalproex Sodium (Divalproex Sodium 500 Mg Tablet.Dr) 500 mg PO TID [facility] Last Admin: 08/11/25 08:46 Dose: 500 mg Docusate Sodium (Docusate Sodium 100 Mg Capsule) 100 mg PO BEDTIME [facility] Last Admin: 08/10/25 19:55 Dose: 100 mg Finasteride (Finasteride 5 Mg Tablet) 5 mg PO DAILY [facility] Last Admin: 08/11/25 08:46 Dose: 5 mg Hydroxyzine HCl (Hydroxyzine Hcl 25 Mg Tablet) 25 mg PO Q6H PRN PRN Reason: Anxiety Last Admin: 08/08/25 08:59 Dose: 25 mg Lorazepam (Lorazepam 1 Mg Tablet) 1 mg PO Q8H PRN PRN Reason: severe agitation with zyprexa Last Admin: 08/10/25 11:04 Dose: 1 mg Magnesium Hydroxide (Milk Of Magnesia 30 Ml Oral.Susp) 30 ml PO DAILY PRN PRN Reason: Constipation Multivitamins/Vitamin C (Multivitamin Tablet) 1 tab PO DAILY [facility] Last Admin: 08/11/25 08:46 Dose: 1 tab Nicotine (Nicotine 21 Mg Patch.Td24) 21 mg TRANSDERMA DAILY PRN PRN Reason: nicotine craving Nicotine Polacrilex (Nicotine Polacrilex 2 Mg Gum) 2 mg BUCCAL Q2H PRN PRN Reason: Nicotine Cravings Olanzapine (Olanzapine 10 Mg Tablet) 10 mg PO BID [facility] Last Admin: 08/11/25 08:46 Dose: 10 mg Olanzapine (Olanzapine 5 Mg Tablet) 5 mg PO Q6H PRN PRN Reason: psychosis, agitation Last Admin: 08/09/25 15:05 Dose: 5 mg Trazodone HCl (Trazodone Hcl 50 Mg Tablet) 50 mg PO BEDTIME MRX1 PRN PRN Reason: Insomnia Last Admin: 08/10/25 00:20 Dose: 50 mg Allergies Allergies Allergy/AdvReac Type Severity Reaction Status Date / Time No Known Allergies Allergy Verified 08/04/25 17:37 Assessment & Plan Assessment & Plan (1) Bipolar disorder with severe cam: Status: Acute Code(s): F31.13 - Bipolar disorder, current episode manic without psychotic features, severe Assessment and Plan: More dysregulated, hostile, having angry outbursts and some resistance to prn and not consistently inconsistently accepting PRN medications. Less severe agitation this am but loudly talking non-stop for at least one hour in am at nursing station and continued on for another long period after lunch. Inappropriate and flirtatious with CARDIOVASCULAR SPECIALIST. Told her hed take shirt off to show off his muscles, which she advised not to. He still bared his chest and began posing and flexing muscles. Ongoing symptoms of cam, recent med changes. On , called alarmed asking to Told he was being dc'd on Sunday Continue current medication mgmt plan VPA level therapeutic monitor compliance Continue PRN Olanzaine and reduce frequency of Ativan as this may be contributing to increase disregulation/disinhibition Cont Olanzapine 10 mg BID scheduled 08/11 More agitated, irritable, argumentative, hostile and confrontational, demanding an MD who can speak Azeri Became iirate when I tried to provide education about symptoms, treatment plan, and recommendations, as he wanted to leave tomorrow. abruptly rushed out of room, shouting at me and demanding a new doctor. (2) Cannabis abuse: Status: Acute Code(s): F12.10 - Cannabis abuse, uncomplicated Assessment and Plan: Psychoeducation, groups, patient chronically using for sleep and according to no recent changes in pattern of use (3) PTSD (post-traumatic stress disorder): Status: Acute Code(s): F43.10 - Post-traumatic stress disorder, unspecified Assessment and Plan: self-reported---Patient is not a reliable historian given degree of disorganization (4) Type II diabetes mellitus: Status: Acute Code(s): E11.9 - Type 2 diabetes mellitus without complications Assessment and Plan: f/u by medical CARDIOVASCULAR SPECIALIST covering psychiatry--HbA1c OK f/u as needed by medical team (5) A-fib: Status: Acute Code(s): I48.91 - Unspecified atrial fibrillation Assessment and Plan: Per medical CARDIOVASCULAR SPECIALIST covering psych/medical team recommendations Plan HPI: patient is a 75 Azeri Speaking male with hx of Bipolar disorder who presents to the ED from home on a section 12 on 08/01/25. Patient has been experience worsening cam. He has not been eating, drinking or sleeping. Patient was combative when EMS arrived to his home. Patient was agitated, throwing chairs at people. Was given 2.5mg of Versed by EMS. Continue to yell, swear at staff, and combative after multiple attempted to direct, patient was physically and chemically restrained in the ED. Formulation/clinical reasoning: manic, poor sleep and appetite, irritable, agitated, loud, not sleeping and full of energy. SW communicated with who indicates sxs escalating. Only one prior known episode with hospitalization at [facility] . Per 4th : Until recently no symptoms and no tx since they have been together (~ 20 yrs ). Restrained in ED. And according to patient OCD, and PTSD. Significant symptoms of cam and untreated and generally asymptomatic for extended time. Patient may have had contact with [facility] system and a prior state admission to [facility]. Given presentation presentation, patient still require inpatient stabilization in an [facility] for ongoing treatment including medication management, psychosocial interventions, family contact, obtain collateral information from family/providers if agreeable, and participation in reccommended groups. Will provide psychoeducation as tolerated and coordinate care/refer to OP services for ongoing medical and psychiatric management. Hospital course: 08/04/25: patient reports taking no meds at home for Bipolar and medication was started from ED Depakote 500mg BID. Will adjust to therapeutic dose. Level in 4 days or Zyprexa 10mg BID Eliquis 5mg BID Atorvastatin 20mg daily at HS Add Zyprexa 5mg BID PRN For agitation Add Ativan 1mg Q6hrs PRN for severe anxiety Plan Patient on 5 minute checks for safety. Admitted to S1. CV. Psychopharmacological assessment and mgmt as noted---goal VPA dose by weight ~2000 mg, will titrate and check levels Psychosocial assessment and interventions including groups/milieu mgmt Admission medical assessment and care with medicine as needed labs/diagnostic test. Discharge planing ED labs: Elevated on AST/ALT. Utox +BZD (was given Versed from EMS prior to be brought to ED, BAL negative). 08/08 added multivitamin, cepacol 08/09: no change 08/10 Therapeutic level of VPA, still symptomatic, but less irritable overall. Logorrheic, intrusive, pressured and labile. Reducing Ativan, monitor PRN use 08/11: More irritable and argumentative, shouting, angry, showing poor insight into severity of symptoms and difficulties Sedated yesterday, will slowly increase VPA/Olanzapine Patient educated on: diagnosis, medication risk/benefits, therapeutic strategies and other (Not receptive, angered with explanations) Guardian/Caregiver educated on: diagnosis, medication risk/benefits and therapeutic strategies Informed Consent: further education needed Reason for continued inpatient stay Substantial Risk for: harm to self, inability to function and rapid decompensation Time Spent With Patient Time: Total time managing care of this patient today _45___ minutes.
[2025-08-11 20:17] VITALS: BP 126/64; PULSE 90; RESP 17; TEMP 36.6; O2SAT 98
[2025-08-12 08:00] VITALS: BP 102/55; PULSE 83; RESP 16; TEMP 36.7; O2SAT 97
[2025-08-12] MEDS: Throat Lozenge, Medicated LOZENGE 1 LOZENGE MUCOUS MEM ×2 (08:45→14:55)
--- NOTE | 2025-08-12 09:22 | HO.PSYCHPN ---
Subjective Subjective Date of Service: 08/12/25 Reason For Visit: bipolar cam severe Subjective Notes: Conditional Voluntary Interim History: Volatile, uncooperative, loud and easily agitated. Making sarcastic, inappropriate comments. States he won't talk to me because I don't speak [place], and have an accent so he cannot understand. At other times, he says he already fired me. Approached twice (briefly) but said he didn't want to meet for these reasons. Medication Compliance: Yes Side effects from medications: No Review of Systems Acute medical concerns: No Review of Systems Review of Systems Refused to see me Reports behavioral changes Psychiatric: Reports behavioral changes, Reports difficulty concentrating, Reports irritability, Reports paranoia and Reports other (agitated, angry, volatile,pacing, logorrheic) Mental Status Exam Mental Status Exam Narrative: Patient approached x 2, angry refused to meet with me, says he has fired me. MSE limited by current presentation Level of Consciousness: Awake, Restless, Alert and Inappropriate Patient Behavior: Talkative, Hyperactive, Aggressive (verbal outbursts), Restless, Verbal Threats, Uncooperative, Impulsive, Pacing and Poor Eye Contact Mood Description: Labile and Angry Affect Description: Hostile (but no assault) and Angry Ability to Follow Directions: Poor (very limited but does so with much prompting by specific staff) Speech Pattern: Spontaneous Speech, Rambling, Rapid and Loud Thought Process: Racing Thought Content: positive for Racing, positive for Perseveration, positive for Preoccupation and positive for Tangential Diagnostics Vital Signs (24Hr): Vital Signs - 24 hr 08/11/25 20:17 Temperature 97.8 F Pulse Rate 90 Respiratory Rate 17 Blood Pressure 126/64 Pulse Oximetry 98 Oxygen Delivery Method Room Air BMI result Body Mass Index 30.6 Labs 08/05/25 07:19 Medications Medications Current Medications Acetaminophen (Acetaminophen 325 Mg Tablet) 650 mg PO Q6H PRN PRN Reason: Headache/Pain, Scale 1-10 Last Admin: 08/07/25 20:00 Dose: 650 mg Al Hydroxide/Mg Hydroxide (Magnesium Hydrox/Alum Hydrox 30 Ml Oral.Susp) 30 ml PO Q6H PRN PRN Reason: Heartburn/Nausea Apixaban (Apixaban 5 Mg Tablet) 5 mg PO BID [facility] Last Admin: 08/12/25 08:31 Dose: 5 mg Atorvastatin Calcium (Atorvastatin Calcium 20 Mg Tablet) 20 mg PO BEDTIME [facility] Last Admin: 08/11/25 20:19 Dose: 20 mg Benzocaine (Throat Lozenge, Medicated Lozenge) 1 lozenge MUCOUS MEM Q2H PRN PRN Reason: Sore Throat Last Admin: 08/12/25 08:45 Dose: 1 lozenge Divalproex Sodium (Divalproex Sodium 500 Mg Tablet.Dr) 500 mg PO TID [facility] Last Admin: 08/12/25 08:31 Dose: 500 mg Docusate Sodium (Docusate Sodium 100 Mg Capsule) 100 mg PO BEDTIME [facility] Last Admin: 08/11/25 20:19 Dose: 100 mg Finasteride (Finasteride 5 Mg Tablet) 5 mg PO DAILY [facility] Last Admin: 08/12/25 08:31 Dose: 5 mg Hydroxyzine HCl (Hydroxyzine Hcl 25 Mg Tablet) 25 mg PO Q6H PRN PRN Reason: Anxiety Last Admin: 08/08/25 08:59 Dose: 25 mg Magnesium Hydroxide (Milk Of Magnesia 30 Ml Oral.Susp) 30 ml PO DAILY PRN PRN Reason: Constipation Multivitamins/Vitamin C (Multivitamin Tablet) 1 tab PO DAILY [facility] Last Admin: 08/12/25 08:31 Dose: 1 tab Nicotine (Nicotine 21 Mg Patch.Td24) 21 mg TRANSDERMA DAILY PRN PRN Reason: nicotine craving Nicotine Polacrilex (Nicotine Polacrilex 2 Mg Gum) 2 mg BUCCAL Q2H PRN PRN Reason: Nicotine Cravings Olanzapine (Olanzapine 10 Mg Tablet) 10 mg PO BID [facility] Last Admin: 08/12/25 08:31 Dose: 10 mg Olanzapine (Olanzapine 5 Mg Tablet) 5 mg PO Q6H PRN PRN Reason: agitation/hostility/NTE 2xday Last Admin: 08/09/25 15:05 Dose: 5 mg Olanzapine (Olanzapine 5 Mg Tablet) 5 mg PO DAILY [facility] Trazodone HCl (Trazodone Hcl 50 Mg Tablet) 50 mg PO BEDTIME PRN PRN Reason: Insomnia Allergies Allergies Allergy/AdvReac Type Severity Reaction Status Date / Time No Known Allergies Allergy Verified 08/04/25 17:37 Assessment & Plan Assessment & Plan (1) Bipolar disorder with severe cam: Status: Acute Code(s): F31.13 - Bipolar disorder, current episode manic without psychotic features, severe Assessment and Plan: More dysregulated, hostile, having angry outbursts and some resistance to prn and not consistently inconsistently accepting PRN medications. Less severe agitation this am but loudly talking non-stop for at least one hour in am at nursing station and continued on for another long period after lunch. Inappropriate and flirtatious with PARKING METER MECHANIC. Told her hed take shirt off to show off his muscles, which she advised not to. He still bared his chest and began posing and flexing muscles. Ongoing symptoms of cam, recent med changes. On , called alarmed asking to Told he was being dc'd on Sunday Continue current medication mgmt plan VPA level therapeutic monitor compliance Continue PRN Olanzaine and reduce frequency of Ativan as this may be contributing to increase disregulation/disinhibition Cont Olanzapine 10 mg BID scheduled 08/11 More agitated, irritable, argumentative, hostile and confrontational, demanding an MD who can speak Ug[place]an Became iirate when I tried to provide education about symptoms, treatment plan, and recommendations, as he wanted to leave tomorrow. abruptly rushed out of room, shouting at me and demanding a new doctor. (2) Cannabis abuse: Status: Acute Code(s): F12.10 - Cannabis abuse, uncomplicated Assessment and Plan: Psychoeducation, groups, patient chronically using for sleep and according to no recent changes in pattern of use (3) PTSD (post-traumatic stress disorder): Status: Acute Code(s): F43.10 - Post-traumatic stress disorder, unspecified Assessment and Plan: self-reported---Patient is not a reliable historian given degree of disorganization (4) Type II diabetes mellitus: Status: Acute Code(s): E11.9 - Type 2 diabetes mellitus without complications Assessment and Plan: f/u by medical PARKING METER MECHANIC covering psychiatry--HbA1c OK f/u as needed by medical team (5) A-fib: Status: Acute Code(s): I48.91 - Unspecified atrial fibrillation Assessment and Plan: Per medical PARKING METER MECHANIC covering psych/medical team recommendations Plan HPI: patient is a 75 [place]an Speaking male with hx of Bipolar disorder who presents to the ED from home on a section 12 on 08/01/25. Patient has been experience worsening cam. He has not been eating, drinking or sleeping. Patient was combative when EMS arrived to his home. Patient was agitated, throwing chairs at people. Was given 2.5mg of Versed by EMS. Continue to yell, swear at staff, and combative after multiple attempted to direct, patient was physically and chemically restrained in the ED. Formulation/clinical reasoning: manic, poor sleep and appetite, irritable, agitated, loud, not sleeping and full of energy. SW communicated with who indicates sxs escalating. Only one prior known episode with hospitalization at [facility] . Per 4th : Until recently no symptoms and no tx since they have been together (~ 20 yrs ). Restrained in ED. And according to patient OCD, and PTSD. Significant symptoms of cam and untreated and generally asymptomatic for extended time. Patient may have had contact with [facility] system and a prior state admission to [facility]. Given presentation presentation, patient still require inpatient stabilization in an [facility] for ongoing treatment including medication management, psychosocial interventions, family contact, obtain collateral information from family/providers if agreeable, and participation in reccommended groups. Will provide psychoeducation as tolerated and coordinate care/refer to OP services for ongoing medical and psychiatric management. Hospital course: 08/04/25: patient reports taking no meds at home for Bipolar and medication was started from ED Depakote 500mg BID. Will adjust to therapeutic dose. Level in 4 days or Zyprexa 10mg BID Eliquis 5mg BID Atorvastatin 20mg daily at HS Add Zyprexa 5mg BID PRN For agitation Add Ativan 1mg Q6hrs PRN for severe anxiety Plan Patient on 5 minute checks for safety. Admitted to S1. CV. Psychopharmacological assessment and mgmt as noted---goal VPA dose by weight ~2000 mg, will titrate and check levels Psychosocial assessment and interventions including groups/milieu mgmt Admission medical assessment and care with medicine as needed labs/diagnostic test. Discharge planing ED labs: Elevated on AST/ALT. Utox +BZD (was given Versed from EMS prior to be brought to ED, BAL negative). 08/08 added multivitamin, cepacol 08/09: no change 08/10 Therapeutic level of VPA, still symptomatic, but less irritable overall. Logorrheic, intrusive, pressured and labile. Reducing Ativan, monitor PRN use 08/11: More irritable and argumentative, shouting, angry, showing poor insight into severity of symptoms and difficulties Sedated yesterday, will slowly increase VPA/Olanzapine Reason for continued inpatient stay Substantial Risk for: inability to function, rapid decompensation, med/psych decompensation and other (at risk of harm stemming from impaired judgment, intrusive behaviors, verbal agression/vague thrats and failure to appreciate the potential for being assaulted in retaliation should he be in a less restrictive setting) Time Spent With Patient Time: Total time managing care of this patient today ____ minutes.
[2025-08-12 20:25] VITALS: BP 125/74; PULSE 74; RESP 16; TEMP 37.7; O2SAT 98
[2025-08-13 06:29] VITALS: BMI 30.8
[2025-08-13 08:00] VITALS: BP 115/77; PULSE 106; RESP 16; TEMP 36.8; O2SAT 93
--- NOTE | 2025-08-13 16:28 | P.PNPSI_ITS ---
Subjective Subjective Date of Service: 08/13/25 Reason For Visit: bipolar cam severe Subjective Notes: Sorto Warning and Conditional Voluntary Interim History: Patient is a 75-year-old white male with a history of prior hospitalization fpr Bipolar do in the '80s. He reported he was admitted to [facility] at the time. According to and patient, he had maintained stability by exercising excessively and doing physical demanding jobs for extended periods of time It is reported that on 08/03/2025 the patient had presented to his primary care office requesting to be started on medications for bipolar illness. According to patient's report, crisis documentation and PCPs/clinic report, patient escalated,abruptly left when told he needed to see a provider. He was reported FRANCESCO by , and filed losing missing person report. Patient was reported to have left that walked from [place] to [place] for no apparent reason?. Patient was seen by crisis and it and recommended tx ---olanzapine Depakote and lorazepam. Patient is retired from the [employer]. He did not witness conmbat. He lives with his of 20 years. She noticed a change in behavior and added to toe worst her in the past several months which was progressive led to the to clx deterioration, severe mood symptoms (manic/mood and behavioaral) 0 and hospitalization. According to information provided to crisis by daughter patient patient never stops. 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 noted he may have been shopping too much and making multiple plans for renovations. He had been verbally rude, and symptoms increased this year. Mr. Lopez was admitted to [facility] for management of his condition. He was frankly manic, with PMS, non stop pacing, was intrusive, argumentative, pressured in speech and tangential. He was confrontationl and resonded poorly to instructios/redirection. He had poor boundaries, for instance,taking his shirt off so others could admire his muscles, and not respondig to requests to put his shirt om. Patient was racially focus, insisting he wanted a different psychiatrist who could speak Nigerian). He was been persistently focused on my ethnicity making inappriopriate comments and or firing me in writing. He is frequently overheard making vague threats contingent on getting his wishes immediately met, showing self as volatile and limited ability to tolerate and cope with frustration. Along with demonstrating judgement is impaired, his intrusive, volatile and confrontational responses to redirection and his verbal hostility place him at risk if he was in a less restrictive setting. Team is trying to work with patient towards developping more insight interpersonal and safety awareness. After ddismissing me/declining to talk to me whenever approached; in early afternoon, he demanded I present immediately to talk to him or else. I was not immediately available and typically patientgets agitated with me. Patient reportedly had an angry outbursts, voicing vague, conditional threats, stating hewanted to go home and MD was not discharging him and finally flipping a table. Despite being described as intimidating and causing fear for safety, patient was not medicated involuntary manner and required staff intense involvement to distract and deescalate. I was informed that information systems security developer was already in the unit for unrelated reason. Officer called other 2 officers. Officers did not have to actively intervene. Patient required, apparently, much support and redirection which he finally followed. I saw patient around 1600-He was as usual abrupt, and had the usual unkind words or MD, but with support from hot metal charger, he wasable to show some restraint. He attributed his behaviors externally (bc I didn't come to see him immediatelY), whithout acknowledging having met/refused to meed/said I was fired several times before ( you only saw me once!!what kind of doctor are you? ) He expressed he was angry about not going home. I explained his and the tx team concerns, which had become clearer considering his behaviors today. Patient said he understood his did not want him to d/c yet and he would follow treatment recommendations so he would be able to go home. Patient informed of plan and will adjust meds/prn. He added I'm not this for you. Im doing it for my . He voiced no further wishes/complaints. He still wants a solid waste landfill technician for him to undestand me but I was no longer fired bc he wanted to leave and prove his he was well by complying with recommendations ( I'm doing it for her not for you!! ) Medication Compliance: Yes Side effects from medications: No Review of Systems Acute medical concerns: No Medical Review of Systems: unchanged Review of Systems Review of Systems Refused to see me Yes all other systems are reviewed and are negative and Other (no change from HPI) Constitutional: Reports as per HPI and Reports difficulty sleeping Eyes: Reports as per HPI Reports as per HPI Cardiovascular: Reports as per HPI Respiratory: Reports as per HPI Gastrointestinal: Reports as per HPI and Reports constipation Genitourinary: Reports as per HPI Musculoskeletal: Reports as per HPI Skin/Breast: Reports as per HPI Reports as per HPI, Reports Neuro-related abnormal movements (agitation) and Reports behavioral changes Psychiatric: Reports abnormal sleep pattern, Reports behavioral changes, Reports difficulty concentrating, Reports irritability, Reports mood swings, Reports paranoia and Reports other (agitated, angry, volatile,pacing, logorrheic) Endocrine: Reports as per HPI Hematologic/Lymphatic: Reports as per HPI Allergic/Immunologic: Reports as per HPI Mental Status Exam Mental Status Exam Narrative: Patient approached x 2, angry refused to meet with me, says he has fired me. MSE limited by current presentation---Patient seen and care coordinated for extended time later in the day Patient Appearance: Disheveled and Unkempt Patient Orientation: Person, Place, Time and Situation Level of Consciousness: Awake, Restless, Alert, Inappropriate and Combative Patient Behavior: Talkative, Hyperactive, Suspicious, Aggressive (verbal outbursts), Restless, Verbal Threats, Uncooperative, Impulsive, Pacing and Poor Eye Contact Mood Description: Labile and Angry Affect Description: Hostile (but no assault) and Angry Patient Cognition Impaired: No Ability to Follow Directions: Poor ( limited but does so with much prompting by specific staff) Speech Pattern: Spontaneous Speech, Rambling, Rapid, Loud and Pressured (less) Memory Description: Intact (on superficial assessment only, unable to further assess as uncooperative and symptomatic) Delusions: Paranoid Ideation (suspiciousness, does not appear delusional) Thought Process: Racing and Goal Oriented Thought Content: positive for Racing, positive for Goal Oriented, positive for Perseveration, negative for Suicidal Ideation or negative for Homicidal Ideation Diagnostics Vital Signs (24Hr): Vital Signs - 24 hr 08/12/25 20:25 08/13/25 08:00 Temperature 99.8 F 98.3 F Pulse Rate 74 106 H Respiratory Rate 16 16 Blood Pressure 125/74 115/77 Pulse Oximetry 98 93 Oxygen Delivery Method Room Air BMI result Body Mass Index 30.8 Labs 08/05/25 07:19 Medications Medications Current Medications Acetaminophen (Acetaminophen 325 Mg Tablet) 650 mg PO Q6H PRN PRN Reason: Headache/Pain, Scale 1-10 Last Admin: 08/13/25 15:09 Dose: 650 mg Al Hydroxide/Mg Hydroxide (Magnesium Hydrox/Alum Hydrox 30 Ml Oral.Susp) 30 ml PO Q6H PRN PRN Reason: Heartburn/Nausea Apixaban (Apixaban 5 Mg Tablet) 5 mg PO BID [facility] Last Admin: 08/13/25 08:43 Dose: 5 mg Atorvastatin Calcium (Atorvastatin Calcium 20 Mg Tablet) 20 mg PO BEDTIME [facility] Last Admin: 08/12/25 20:44 Dose: 20 mg Benzocaine (Throat Lozenge, Medicated Lozenge) 1 lozenge MUCOUS MEM Q2H PRN PRN Reason: Sore Throat Last Admin: 08/12/25 14:55 Dose: 1 lozenge Divalproex Sodium (Divalproex Sodium 500 Mg Tablet.Dr) 500 mg PO TID [facility] Last Admin: 08/13/25 15:06 Dose: 500 mg Docusate Sodium (Docusate Sodium 100 Mg Capsule) 100 mg PO BEDTIME [facility] Last Admin: 08/12/25 20:45 Dose: 100 mg Finasteride (Finasteride 5 Mg Tablet) 5 mg PO DAILY [facility] Last Admin: 08/13/25 08:44 Dose: 5 mg Hydroxyzine HCl (Hydroxyzine Hcl 25 Mg Tablet) 25 mg PO Q6H PRN PRN Reason: Anxiety Last Admin: 08/08/25 08:59 Dose: 25 mg Magnesium Hydroxide (Milk Of Magnesia 30 Ml Oral.Susp) 30 ml PO DAILY PRN PRN Reason: Constipation Multivitamins/Vitamin C (Multivitamin Tablet) 1 tab PO DAILY [facility] Last Admin: 08/13/25 08:43 Dose: 1 tab Nicotine (Nicotine 21 Mg Patch.Td24) 21 mg TRANSDERMA DAILY PRN PRN Reason: nicotine craving Nicotine Polacrilex (Nicotine Polacrilex 2 Mg Gum) 2 mg BUCCAL Q2H PRN PRN Reason: Nicotine Cravings Olanzapine (Olanzapine 10 Mg Tablet) 10 mg PO BID [facility] Last Admin: 08/13/25 08:43 Dose: 10 mg Olanzapine (Olanzapine 5 Mg Tablet) 5 mg PO Q6H PRN PRN Reason: agitation/hostility/NTE 2xday Last Admin: 08/13/25 15:06 Dose: 5 mg Olanzapine (Olanzapine 5 Mg Tablet) 5 mg PO DAILY [facility] Last Admin: 08/13/25 15:06 Dose: 5 mg Trazodone HCl (Trazodone Hcl 50 Mg Tablet) 50 mg PO BEDTIME PRN PRN Reason: Insomnia Last Admin: 08/12/25 22:54 Dose: 50 mg Allergies Allergies Allergy/AdvReac Type Severity Reaction Status Date / Time No Known Allergies Allergy Verified 08/04/25 17:37 Assessment & Plan Assessment & Plan (1) Bipolar disorder with severe cam: Status: Acute Code(s): F31.13 - Bipolar disorder, current episode manic without psychotic features, severe Assessment and Plan: More dysregulated, hostile, having angry outbursts and some resistance to prn and not consistently inconsistently accepting PRN medications. Less severe agitation this am but loudly talking non-stop for at least one hour in am at nursing station and continued on for another long period after lunch. Inappropriate and flirtatious with GLUING MACHINE ADJUSTER. Told her hed take shirt off to show off his muscles, which she advised not to. He still bared his chest and began posing and flexing muscles. Ongoing symptoms of cam, recent med changes. On , called alarmed asking to Told he was being dc'd on Sunday Continue current medication mgmt plan VPA level therapeutic monitor compliance Continue PRN Olanzaine and reduce frequency of Ativan as this may be contributing to increase disregulation/disinhibition Cont Olanzapine 10 mg BID scheduled 08/11 More agitated, irritable, argumentative, hostile and confrontational, demanding an MD who can speak Nigerian Became iirate when I tried to provide education about symptoms, treatment plan, and recommendations, as he wanted to leave tomorrow. abruptly rushed out of room, shouting at me and demanding a new doctor. 08/12 08/13 (2) Cannabis abuse: Status: Acute Code(s): F12.10 - Cannabis abuse, uncomplicated Assessment and Plan: Psychoeducation, groups, patient chronically using for sleep and according to no recent changes in pattern of use (3) PTSD (post-traumatic stress disorder): Status: Acute Code(s): F43.10 - Post-traumatic stress disorder, unspecified Assessment and Plan: Not verified clinically or by history during this admission--self-reported--- (4) Type II diabetes mellitus: Status: Acute Code(s): E11.9 - Type 2 diabetes mellitus without complications Assessment and Plan: f/u by medical GLUING MACHINE ADJUSTER covering psychiatry--HbA1c OK f/u as needed by medical team (5) A-fib: Status: Acute Code(s): I48.91 - Unspecified atrial fibrillation Assessment and Plan: Per medical GLUING MACHINE ADJUSTER covering psych/medical team recommendations Plan HPI: patient is a 75 Nigerian Speaking male with hx of Bipolar disorder who presents to the ED from home on a section 12 on 08/01/25. Patient has been experience worsening cam. He has not been eating, drinking or sleeping. Patient was combative when EMS arrived to his home. Patient was agitated, throwing chairs at people. Was given 2.5mg of Versed by EMS. Continue to yell, swear at staff, and combative after multiple attempted to direct, patient was physically and chemically restrained in the ED. Formulation/clinical reasoning: manic, poor sleep and appetite, irritable, agitated, loud, not sleeping and full of energy. SW communicated with who indicates sxs escalating. Only one prior known episode with hospitalization at [facility] . Per 4th : Until recently no symptoms and no tx since they have been together (~ 20 yrs ). Restrained in ED. And according to patient OCD, and PTSD. Significant symptoms of cam and untreated and generally asymptomatic for extended time. Patient may have had contact with [facility] system and a prior state admission to [facility]. Given presentation presentation, patient still require inpatient stabilization in an [facility] for ongoing treatment including medication management, psychosocial interventions, family contact, obtain collateral information from family/providers if agreeable, and participation in reccommended groups. Will provide psychoeducation as tolerated and coordinate care/refer to OP services for ongoing medical and psychiatric management. Hospital course: 08/04/25: patient reports taking no meds at home for Bipolar and medication was started from ED Depakote 500mg BID. Will adjust to therapeutic dose. Level in 4 days or Zyprexa 10mg BID Eliquis 5mg BID Atorvastatin 20mg daily at HS Add Zyprexa 5mg BID PRN For agitation Add Ativan 1mg Q6hrs PRN for severe anxiety Plan Patient on 5 minute checks for safety. Admitted to S1. CV. Psychopharmacological assessment and mgmt as noted---goal VPA dose by weight ~2000 mg, will titrate and check levels Psychosocial assessment and interventions including groups/milieu mgmt Admission medical assessment and care with medicine as needed labs/diagnostic test. Discharge planing ED labs: Elevated on AST/ALT. Utox +BZD (was given Versed from EMS prior to be brought to ED, BAL negative). 08/08 added multivitamin, cepacol 08/09: no change 08/10 Therapeutic level of VPA, still symptomatic, but less irritable overall. Logorrheic, intrusive, pressured and labile. Reducing Ativan, monitor PRN use 08/11: More irritable and argumentative, shouting, angry, showing poor insight into severity of symptoms and difficulties Sedated yesterday, will slowly increase VPA/Olanzapine 08/13 Reason for continued inpatient stay Substantial Risk for: inability to function, rapid decompensation and other Time Spent With Patient Time: Total time managing care of this patient today ___60 minutes.
[2025-08-13 20:00] VITALS: BP 144/72; PULSE 84; RESP 17; TEMP 36.6; O2SAT 98
[2025-08-13] MEDS: Throat Lozenge, Medicated LOZENGE 1 LOZENGE MUCOUS MEM (20:26)
[2025-08-14 08:00] VITALS: BP 123/82; PULSE 91; RESP 17; TEMP 36.7; O2SAT 97
[2025-08-14] MEDS: Throat Lozenge, Medicated LOZENGE 1 LOZENGE MUCOUS MEM (08:53)
--- NOTE | 2025-08-14 10:39 | HO.PSYCHPN ---
Subjective Subjective Date of Service: 08/14/25 Reason For Visit: bipolar cam severe Subjective Notes: Sorto Warning and Conditional Voluntary Guardianship: No Medical Problems Affecting Mental Status: No Interim History: Calmer and able to have a conversation appropriate to topic and situation. Would like to go home next week. Clearer, says he will stay as long as he needs to demonstrate to his he is ready to d/c, howver he voices wish to go home for Thanksgiving ( but I stay if I can't ) I told him we should have a meeting including his nrxt week. He would like that and wants to do it, happy to hear it could be done remotely. Waiting for children to visit today. More pleasant and able to have acordial interaction. Thinking is more organized and he displays less PMA and irritablity Medication Compliance: Yes Side effects from medications: No Review of Systems Acute medical concerns: No Medical Review of Systems: unchanged Review of Systems Review of Systems Yes all other systems are reviewed and are negative and Other (no change from HPI) Constitutional: Reports as per HPI and Reports difficulty sleeping Eyes: Reports as per HPI Reports as per HPI Cardiovascular: Reports as per HPI Respiratory: Reports as per HPI Gastrointestinal: Reports as per HPI and Reports constipation Genitourinary: Reports as per HPI Musculoskeletal: Reports as per HPI Skin/Breast: Reports as per HPI Reports as per HPI, Reports Neuro-related abnormal movements (agitation) and Reports behavioral changes Psychiatric: Reports abnormal sleep pattern, Reports behavioral changes, Reports difficulty concentrating, Reports irritability, Reports mood swings, Reports paranoia and Reports other (agitated, angry, volatile,pacing, logorrheic) Endocrine: Reports as per HPI Hematologic/Lymphatic: Reports as per HPI Allergic/Immunologic: Reports as per HPI Mental Status Exam Mental Status Exam Patient Appearance: Disheveled and Appropriate Patient Orientation: Person, Place, Time and Situation Level of Consciousness: Awake, Restless and Alert Patient Behavior: Appropriate, Talkative, Hyperactive, Suspicious, Impulsive and Pacing Mood Description: Anxious and Labile Affect Description: Hostile (but no assault) and Angry Patient Cognition Impaired: No Ability to Follow Directions: Poor ( limited but does so with much prompting by specific staff) Speech Pattern: Spontaneous Speech, Rapid and Loud Memory Description: Intact (on superficial assessment only, unable to further assess as uncooperative and symptomatic) Hallucinations: None Delusions: Not Present Thought Process: Racing and Goal Oriented Thought Content: positive for Racing (less rapid), positive for Goal Oriented, negative for Suicidal Ideation or negative for Homicidal Ideation Depressive Symptoms: Insomnia ( ) Diagnostics Vital Signs (24Hr): Vital Signs - 24 hr 08/13/25 20:00 08/14/25 08:00 Temperature 98 F 98.0 F Pulse Rate 84 91 Respiratory Rate 17 17 Blood Pressure 144/72 H 123/82 Pulse Oximetry 98 97 Oxygen Delivery Method Room Air Room Air BMI result Body Mass Index 30.8 Labs 08/05/25 07:19 Medications Medications Current Medications Acetaminophen (Acetaminophen 325 Mg Tablet) 650 mg PO Q6H PRN PRN Reason: Headache/Pain, Scale 1-10 Last Admin: 08/13/25 15:09 Dose: 650 mg Al Hydroxide/Mg Hydroxide (Magnesium Hydrox/Alum Hydrox 30 Ml Oral.Susp) 30 ml PO Q6H PRN PRN Reason: Heartburn/Nausea Apixaban (Apixaban 5 Mg Tablet) 5 mg PO BID [facility] Last Admin: 08/14/25 08:13 Dose: 5 mg Atorvastatin Calcium (Atorvastatin Calcium 20 Mg Tablet) 20 mg PO BEDTIME [facility] Last Admin: 08/13/25 20:23 Dose: 20 mg Benzocaine (Throat Lozenge, Medicated Lozenge) 1 lozenge MUCOUS MEM Q2H PRN PRN Reason: Sore Throat Last Admin: 08/14/25 08:53 Dose: 1 lozenge Divalproex Sodium (Divalproex Sodium 500 Mg Tablet.Dr) 500 mg PO TID [facility] Last Admin: 08/14/25 08:13 Dose: 500 mg Docusate Sodium (Docusate Sodium 100 Mg Capsule) 100 mg PO BEDTIME [facility] Last Admin: 08/13/25 20:25 Dose: Not Given Finasteride (Finasteride 5 Mg Tablet) 5 mg PO DAILY [facility] Last Admin: 08/14/25 08:13 Dose: 5 mg Hydroxyzine HCl (Hydroxyzine Hcl 25 Mg Tablet) 25 mg PO Q6H PRN PRN Reason: Anxiety Last Admin: 08/13/25 20:26 Dose: 25 mg Magnesium Hydroxide (Milk Of Magnesia 30 Ml Oral.Susp) 30 ml PO DAILY PRN PRN Reason: Constipation Multivitamins/Vitamin C (Multivitamin Tablet) 1 tab PO DAILY [facility] Last Admin: 08/14/25 08:13 Dose: 1 tab Nicotine (Nicotine 21 Mg Patch.Td24) 21 mg TRANSDERMA DAILY PRN PRN Reason: nicotine craving Nicotine Polacrilex (Nicotine Polacrilex 2 Mg Gum) 2 mg BUCCAL Q2H PRN PRN Reason: Nicotine Cravings Olanzapine (Olanzapine 10 Mg Tablet) 10 mg PO BID [facility] Last Admin: 08/14/25 08:13 Dose: 10 mg Olanzapine (Olanzapine 5 Mg Tablet) 5 mg PO Q6H PRN PRN Reason: agitation/hostility/NTE 2xday Last Admin: 08/13/25 15:06 Dose: 5 mg Olanzapine (Olanzapine 5 Mg Tablet) 5 mg PO DAILY [facility] Last Admin: 08/14/25 08:13 Dose: 5 mg Trazodone HCl (Trazodone Hcl 50 Mg Tablet) 50 mg PO BEDTIME PRN PRN Reason: Insomnia Last Admin: 08/13/25 20:26 Dose: 50 mg Allergies Allergies Allergy/AdvReac Type Severity Reaction Status Date / Time No Known Allergies Allergy Verified 08/04/25 17:37 Assessment & Plan Assessment & Plan (1) Bipolar disorder with severe cam: Status: Acute Code(s): F31.13 - Bipolar disorder, current episode manic without psychotic features, severe Assessment and Plan: More dysregulated, hostile, having angry outbursts and some resistance to prn and not consistently inconsistently accepting PRN medications. Less severe agitation this am but loudly talking non-stop for at least one hour in am at nursing station and continued on for another long period after lunch. Inappropriate and flirtatious with DIRECTOR MARKET RESEARCH. Told her hed take shirt off to show off his muscles, which she advised not to. He still bared his chest and began posing and flexing muscles. Ongoing symptoms of cam, recent med changes. On CV, called alarmed asking to Told he was being dc'd on Sunday Continue current medication mgmt plan VPA level therapeutic monitor compliance Continue PRN Olanzaine and reduce frequency of Ativan as this may be contributing to increase disregulation/disinhibition Cont Olanzapine 10 mg BID scheduled 08/11 More agitated, irritable, argumentative, hostile and confrontational, demanding an MD who can speak Kitt[place] Became iirate when I tried to provide education about symptoms, treatment plan, and recommendations, as he wanted to leave tomorrow. abruptly rushed out of room, shouting at me and demanding a new doctor. 08/13 Behavioral outburst, flipped table, less agitated/irritable late in PM 08/14 Able to have a more appropriate conversation, showing progress, monitor, increase VPA and recheck level (2) Cannabis abuse: Status: Acute Code(s): F12.10 - Cannabis abuse, uncomplicated Assessment and Plan: Psychoeducation, groups, patient chronically using for sleep and according to no recent changes in pattern of use (3) PTSD (post-traumatic stress disorder): Status: Acute Code(s): F43.10 - Post-traumatic stress disorder, unspecified Assessment and Plan: self-reported--- (4) Type II diabetes mellitus: Status: Acute Code(s): E11.9 - Type 2 diabetes mellitus without complications Assessment and Plan: f/u as needed by medical team DIRECTOR MARKET RESEARCH (5) A-fib: Status: Acute Code(s): I48.91 - Unspecified atrial fibrillation Assessment and Plan: Per medical DIRECTOR MARKET RESEARCH covering psych/medical team recommendations Plan HPI: patient is a 75 [place] Speaking male with hx of Bipolar disorder who presents to the ED from home on a section 12 on 08/01/25. Patient has been experience worsening cam. He has not been eating, drinking or sleeping. Patient was combative when EMS arrived to his home. Patient was agitated, throwing chairs at people. Was given 2.5mg of Versed by EMS. Continue to yell, swear at staff, and combative after multiple attempted to direct, patient was physically and chemically restrained in the ED. Formulation/clinical reasoning: manic, poor sleep and appetite, irritable, agitated, loud, not sleeping and full of energy. SW communicated with who indicates sxs escalating. Only one prior known episode with hospitalization at [facility] . Per 4th : Until recently no symptoms and no tx since they have been together (~ 20 yrs ). Restrained in ED. And according to patient OCD, and PTSD. Significant symptoms of cam and untreated and generally asymptomatic for extended time. Patient may have had contact with [facility] system and a prior state admission to [facility]. Given presentation presentation, patient still require inpatient stabilization in an [facility] for ongoing treatment including medication management, psychosocial interventions, family contact, obtain collateral information from family/providers if agreeable, and participation in reccommended groups. Will provide psychoeducation as tolerated and coordinate care/refer to OP services for ongoing medical and psychiatric management. Hospital course: 08/04/25: patient reports taking no meds at home for Bipolar and medication was started from ED Depakote 500mg BID. Will adjust to therapeutic dose. Level in 4 days or Zyprexa 10mg BID Eliquis 5mg BID Atorvastatin 20mg daily at HS Add Zyprexa 5mg BID PRN For agitation Add Ativan 1mg Q6hrs PRN for severe anxiety Plan Patient on 5 minute checks for safety. Admitted to S1. CV. Psychopharmacological assessment and mgmt as noted---goal VPA dose by weight ~2000 mg, will titrate and check levels Psychosocial assessment and interventions including groups/milieu mgmt Admission medical assessment and care with medicine as needed labs/diagnostic test. Discharge planing ED labs: Elevated on AST/ALT. Utox +BZD (was given Versed from EMS prior to be brought to ED, BAL negative). 08/08 added multivitamin, cepacol 08/09: no change 08/10 Therapeutic level of VPA, still symptomatic, but less irritable overall. Logorrheic, intrusive, pressured and labile. Reducing Ativan, monitor PRN use 08/11: More irritable and argumentative, shouting, angry, showing poor insight into severity of symptoms and difficulties Sedated yesterday, will slowly increase VPA/Olanzapine 08/14 Showing progress Reason for continued inpatient stay Substantial Risk for: inability to function, rapid decompensation and other Time Spent With Patient Time: Total time managing care of this patient today ____ minutes.
[2025-08-14 20:00] VITALS: BP 148/67; PULSE 99; RESP 16; TEMP 36.6; O2SAT 97
[2025-08-15 08:00] VITALS: BP 126/55; PULSE 81; RESP 18; TEMP 36.9; O2SAT 98
--- NOTE | 2025-08-15 18:05 | HO.PSYCHPN ---
Subjective Subjective Date of Service: 08/15/25 Reason For Visit: bipolar cam severe Diagnostics Vital Signs (24Hr): Vital Signs - 24 hr 08/14/25 20:00 08/15/25 08:00 Temperature 97.9 F 98.5 F Pulse Rate 99 81 Respiratory Rate 16 18 Blood Pressure 148/67 H 126/55 L Pulse Oximetry 97 98 Oxygen Delivery Method Room Air Room Air BMI result Body Mass Index 30.8 Labs 08/05/25 07:19 Medications Medications Current Medications Acetaminophen (Acetaminophen 325 Mg Tablet) 650 mg PO Q6H PRN PRN Reason: Headache/Pain, Scale 1-10 Last Admin: 08/14/25 20:39 Dose: 650 mg Al Hydroxide/Mg Hydroxide (Magnesium Hydrox/Alum Hydrox 30 Ml Oral.Susp) 30 ml PO Q6H PRN PRN Reason: Heartburn/Nausea Apixaban (Apixaban 5 Mg Tablet) 5 mg PO BID [facility] Last Admin: 08/15/25 08:26 Dose: 5 mg Atorvastatin Calcium (Atorvastatin Calcium 20 Mg Tablet) 20 mg PO BEDTIME [facility] Last Admin: 08/14/25 20:31 Dose: 20 mg Benzocaine (Throat Lozenge, Medicated Lozenge) 1 lozenge MUCOUS MEM Q2H PRN PRN Reason: Sore Throat Last Admin: 08/14/25 08:53 Dose: 1 lozenge Divalproex Sodium (Divalproex Sodium 500 Mg Tablet.Dr) 500 mg PO TID [facility] Last Admin: 08/15/25 14:46 Dose: 500 mg Docusate Sodium (Docusate Sodium 100 Mg Capsule) 100 mg PO BEDTIME [facility] Last Admin: 08/14/25 20:31 Dose: 100 mg Finasteride (Finasteride 5 Mg Tablet) 5 mg PO DAILY [facility] Last Admin: 08/15/25 08:27 Dose: 5 mg Hydroxyzine HCl (Hydroxyzine Hcl 25 Mg Tablet) 25 mg PO Q6H PRN PRN Reason: Anxiety Last Admin: 08/13/25 20:26 Dose: 25 mg Magnesium Hydroxide (Milk Of Magnesia 30 Ml Oral.Susp) 30 ml PO DAILY PRN PRN Reason: Constipation Multivitamins/Vitamin C (Multivitamin Tablet) 1 tab PO DAILY [facility] Last Admin: 08/15/25 08:27 Dose: 1 tab Nicotine (Nicotine 21 Mg Patch.Td24) 21 mg TRANSDERMA DAILY PRN PRN Reason: nicotine craving Nicotine Polacrilex (Nicotine Polacrilex 2 Mg Gum) 2 mg BUCCAL Q2H PRN PRN Reason: Nicotine Cravings Olanzapine (Olanzapine 10 Mg Tablet) 10 mg PO BID [facility] Last Admin: 08/15/25 08:26 Dose: 10 mg Olanzapine (Olanzapine 5 Mg Tablet) 5 mg PO Q6H PRN PRN Reason: agitation/hostility/NTE 2xday Last Admin: 08/13/25 15:06 Dose: 5 mg Olanzapine (Olanzapine 5 Mg Tablet) 5 mg PO DAILY [facility] Last Admin: 08/15/25 08:27 Dose: 5 mg Trazodone HCl (Trazodone Hcl 50 Mg Tablet) 50 mg PO BEDTIME PRN PRN Reason: Insomnia Last Admin: 08/14/25 22:25 Dose: 50 mg Allergies Allergies Allergy/AdvReac Type Severity Reaction Status Date / Time No Known Allergies Allergy Verified 08/04/25 17:37 Assessment & Plan Assessment & Plan (1) Bipolar disorder with severe cam: Status: Acute Code(s): F31.13 - Bipolar disorder, current episode manic without psychotic features, severe Assessment and Plan: More dysregulated, hostile, having angry outbursts and some resistance to prn and not consistently inconsistently accepting PRN medications. Less severe agitation this am but loudly talking non-stop for at least one hour in am at nursing station and continued on for another long period after lunch. Inappropriate and flirtatious with COLD ROLLING SUPERVISOR. Told her hed take shirt off to show off his muscles, which she advised not to. He still bared his chest and began posing and flexing muscles. Ongoing symptoms of cam, recent med changes. On CV, called alarmed asking to Told he was being dc'd on Sunday Continue current medication mgmt plan VPA level therapeutic monitor compliance Continue PRN Olanzaine and reduce frequency of Ativan as this may be contributing to increase disregulation/disinhibition Cont Olanzapine 10 mg BID scheduled 08/11 More agitated, irritable, argumentative, hostile and confrontational, demanding an MD who can speak [place] Became iirate when I tried to provide education about symptoms, treatment plan, and recommendations, as he wanted to leave tomorrow. abruptly rushed out of room, shouting at me and demanding a new doctor. 08/13 Behavioral outburst, flipped table, less agitated/irritable late in PM 08/14 Able to have a more appropriate conversation, showing progress, monitor, increase VPA and recheck level (2) Cannabis abuse: Status: Acute Code(s): F12.10 - Cannabis abuse, uncomplicated Assessment and Plan: Psychoeducation, groups, patient chronically using for sleep and according to no recent changes in pattern of use (3) PTSD (post-traumatic stress disorder): Status: Acute Code(s): F43.10 - Post-traumatic stress disorder, unspecified Assessment and Plan: self-reported--- (4) Type II diabetes mellitus: Status: Acute Code(s): E11.9 - Type 2 diabetes mellitus without complications Assessment and Plan: f/u as needed by medical team COLD ROLLING SUPERVISOR (5) A-fib: Status: Acute Code(s): I48.91 - Unspecified atrial fibrillation Assessment and Plan: Per medical COLD ROLLING SUPERVISOR covering psych/medical team recommendations Plan HPI: patient is a 75 [place] Speaking male with hx of Bipolar disorder who presents to the ED from home on a section 12 on 08/01/25. Patient has been experience worsening cam. He has not been eating, drinking or sleeping. Patient was combative when EMS arrived to his home. Patient was agitated, throwing chairs at people. Was given 2.5mg of Versed by EMS. Continue to yell, swear at staff, and combative after multiple attempted to direct, patient was physically and chemically restrained in the ED. Formulation/clinical reasoning: manic, poor sleep and appetite, irritable, agitated, loud, not sleeping and full of energy. SW communicated with who indicates sxs escalating. Only one prior known episode with hospitalization at [facility] . Per 4th : Until recently no symptoms and no tx since they have been together (~ 20 yrs ). Restrained in ED. And according to patient OCD, and PTSD. Significant symptoms of cam and untreated and generally asymptomatic for extended time. Patient may have had contact with [facility] system and a prior state admission to [facility]. Given presentation presentation, patient still require inpatient stabilization in an [facility] for ongoing treatment including medication management, psychosocial interventions, family contact, obtain collateral information from family/providers if agreeable, and participation in reccommended groups. Will provide psychoeducation as tolerated and coordinate care/refer to OP services for ongoing medical and psychiatric management. Hospital course: 08/04/25: patient reports taking no meds at home for Bipolar and medication was started from ED Depakote 500mg BID. Will adjust to therapeutic dose. Level in 4 days or Zyprexa 10mg BID Eliquis 5mg BID Atorvastatin 20mg daily at HS Add Zyprexa 5mg BID PRN For agitation Add Ativan 1mg Q6hrs PRN for severe anxiety Plan Patient on 5 minute checks for safety. Admitted to S1. CV. Psychopharmacological assessment and mgmt as noted---goal VPA dose by weight ~2000 mg, will titrate and check levels Psychosocial assessment and interventions including groups/milieu mgmt Admission medical assessment and care with medicine as needed labs/diagnostic test. Discharge planing ED labs: Elevated on AST/ALT. Utox +BZD (was given Versed from EMS prior to be brought to ED, BAL negative). 08/08 added multivitamin, cepacol 08/09: no change 08/10 Therapeutic level of VPA, still symptomatic, but less irritable overall. Logorrheic, intrusive, pressured and labile. Reducing Ativan, monitor PRN use 08/11: More irritable and argumentative, shouting, angry, showing poor insight into severity of symptoms and difficulties Sedated yesterday, will slowly increase VPA/Olanzapine 08/14 Showing progress Time Spent With Patient Time: Total time managing care of this patient today ____ minutes.
[2025-08-15 20:00] VITALS: BP 126/71; PULSE 89; RESP 16; TEMP 36.7; O2SAT 97
[2025-08-16 07:59] VITALS: BP 106/56; PULSE 84; RESP 17; TEMP 36; O2SAT 98
--- NOTE | 2025-08-16 09:42 | P.PNPSI_ITS ---
Subjective Subjective Date of Service: 08/16/25 Reason For Visit: bipolar cam severe Interim History: late entry note for patient seen on 08/16/25 Patient reports he slept well with increased trazodone; grateful for help received. Patient reports good mood Mental Status Exam Mental Status Exam Narrative: Pt is alert and oriented; behavior is cooperative, friendly and calm; patient is not in distress; dressed in casual attire, adequate grooming; mood is described as good and affect congruent; eye contact appropriate; Speech is normal rate, volume and prosody and not pressured; no psychomotor agitation/retardation present; thought process is organized and goal directed; Thought content is on tx; otherwise pertinent to relevant topics and without any delusional content, paranoid ideations or grandiosity; denies any SI/HI. Denies AVH and there is no evidence of perceptual disturbance. Patients insight and judgment appear intact. Diagnostics Vital Signs (24Hr): Vital Signs - 24 hr 08/16/25 19:50 08/17/25 08:20 Temperature 97.0 F 97.8 F Pulse Rate 80 82 Respiratory Rate 16 16 Blood Pressure 112/64 111/56 L Pulse Oximetry 98 97 Oxygen Delivery Method Room Air Room Air BMI result Body Mass Index 30.8 Labs 08/05/25 07:19 Medications Medications Current Medications Acetaminophen (Acetaminophen 325 Mg Tablet) 650 mg PO Q6H PRN PRN Reason: Headache/Pain, Scale 1-10 Last Admin: 08/14/25 20:39 Dose: 650 mg Al Hydroxide/Mg Hydroxide (Magnesium Hydrox/Alum Hydrox 30 Ml Oral.Susp) 30 ml PO Q6H PRN PRN Reason: Heartburn/Nausea Apixaban (Apixaban 5 Mg Tablet) 5 mg PO BID [facility] Last Admin: 08/17/25 09:15 Dose: 5 mg Atorvastatin Calcium (Atorvastatin Calcium 20 Mg Tablet) 20 mg PO BEDTIME [facility] Last Admin: 08/16/25 19:54 Dose: 20 mg Benzocaine (Throat Lozenge, Medicated Lozenge) 1 lozenge MUCOUS MEM Q2H PRN PRN Reason: Sore Throat Last Admin: 08/14/25 08:53 Dose: 1 lozenge Divalproex Sodium (Divalproex Sodium 500 Mg Tablet.Dr) 500 mg PO TID [facility] Last Admin: 08/17/25 09:16 Dose: 500 mg Docusate Sodium (Docusate Sodium 100 Mg Capsule) 100 mg PO BEDTIME [facility] Last Admin: 08/16/25 19:54 Dose: 100 mg Finasteride (Finasteride 5 Mg Tablet) 5 mg PO DAILY [facility] Last Admin: 08/17/25 09:16 Dose: 5 mg Hydroxyzine HCl (Hydroxyzine Hcl 25 Mg Tablet) 25 mg PO Q6H PRN PRN Reason: Anxiety Last Admin: 08/13/25 20:26 Dose: 25 mg Magnesium Hydroxide (Milk Of Magnesia 30 Ml Oral.Susp) 30 ml PO DAILY PRN PRN Reason: Constipation Multivitamins/Vitamin C (Multivitamin Tablet) 1 tab PO DAILY [facility] Last Admin: 08/17/25 09:15 Dose: 1 tab Nicotine (Nicotine 21 Mg Patch.Td24) 21 mg TRANSDERMA DAILY PRN PRN Reason: nicotine craving Nicotine Polacrilex (Nicotine Polacrilex 2 Mg Gum) 2 mg BUCCAL Q2H PRN PRN Reason: Nicotine Cravings Olanzapine (Olanzapine 10 Mg Tablet) 10 mg PO BID [facility] Last Admin: 08/17/25 09:15 Dose: 10 mg Olanzapine (Olanzapine 5 Mg Tablet) 5 mg PO Q6H PRN PRN Reason: agitation/hostility/NTE 2xday Last Admin: 08/13/25 15:06 Dose: 5 mg Olanzapine (Olanzapine 5 Mg Tablet) 5 mg PO DAILY [facility] Last Admin: 08/17/25 09:15 Dose: 5 mg Trazodone HCl (Trazodone Hcl 50 Mg Tablet) 50 mg PO BEDTIME PRN PRN Reason: Insomnia Last Admin: 08/15/25 23:36 Dose: 50 mg Trazodone HCl (Trazodone Hcl 100 Mg Tablet) 100 mg PO BEDTIME [facility] Last Admin: 08/16/25 19:54 Dose: 100 mg Allergies Allergies Allergy/AdvReac Type Severity Reaction Status Date / Time No Known Allergies Allergy Verified 08/04/25 17:37 Assessment & Plan Assessment & Plan (1) Bipolar disorder with severe cam: Status: Acute Code(s): F31.13 - Bipolar disorder, current episode manic without psychotic features, severe Assessment and Plan: More dysregulated, hostile, having angry outbursts and some resistance to prn and not consistently inconsistently accepting PRN medications. Less severe agitation this am but loudly talking non-stop for at least one hour in am at nursing station and continued on for another long period after lunch. Inappropriate and flirtatious with PATROL MAN. Told her hed take shirt off to show off his muscles, which she advised not to. He still bared his chest and began posing and flexing muscles. Ongoing symptoms of cam, recent med changes. On CV, called alarmed asking to Told he was being dc'd on Sunday Continue current medication mgmt plan VPA level therapeutic monitor compliance Continue PRN Olanzaine and reduce frequency of Ativan as this may be contributing to increase disregulation/disinhibition Cont Olanzapine 10 mg BID scheduled 08/11 More agitated, irritable, argumentative, hostile and confrontational, demanding an MD who can speak Slovak Became iirate when I tried to provide education about symptoms, treatment plan, and recommendations, as he wanted to leave tomorrow. abruptly rushed out of room, shouting at me and demanding a new doctor. 08/13 Behavioral outburst, flipped table, less agitated/irritable late in PM 08/14 Able to have a more appropriate conversation, showing progress, monitor, increase VPA and recheck level (2) Cannabis abuse: Status: Acute Code(s): F12.10 - Cannabis abuse, uncomplicated Assessment and Plan: Psychoeducation, groups, patient chronically using for sleep and according to no recent changes in pattern of use (3) PTSD (post-traumatic stress disorder): Status: Inactive Code(s): F43.10 - Post-traumatic stress disorder, unspecified Assessment and Plan: self-reported--- (4) Type II diabetes mellitus: Status: Acute Code(s): E11.9 - Type 2 diabetes mellitus without complications Assessment and Plan: f/u as needed by medical team PATROL MAN (5) A-fib: Status: Acute Code(s): I48.91 - Unspecified atrial fibrillation Assessment and Plan: Per medical PATROL MAN covering psych/medical team recommendations Plan HPI: patient is a 75 Slovak Speaking male with hx of Bipolar disorder who presents to the ED from home on a section 12 on 08/01/25. Patient has been experience worsening cam. He has not been eating, drinking or sleeping. Patient was combative when EMS arrived to his home. Patient was agitated, throwing chairs at people. Was given 2.5mg of Versed by EMS. Continue to yell, swear at staff, and combative after multiple attempted to direct, patient was physically and chemically restrained in the ED. Formulation/clinical reasoning: manic, poor sleep and appetite, irritable, agitated, loud, not sleeping and full of energy. SW communicated with who indicates sxs escalating. Only one prior known episode with hospitalization at [facility]. . Per 4th : Until recently no symptoms and no tx since they have been together (~ 20 yrs ). Restrained in ED. And according to patient OCD, and PTSD. Significant symptoms of cam and untreated and generally asymptomatic for extended time. Patient may have had contact with [facility] system and a prior state admission to [facility]. Given presentation presentation, patient still require inpatient stabilization in an [facility] for ongoing treatment including medication management, psychosocial interventions, family contact, obtain collateral information from family/providers if agreeable, and participation in reccommended groups. Will provide psychoeducation as tolerated and coordinate care/refer to OP services for ongoing medical and psychiatric management. Hospital course: 08/04/25: patient reports taking no meds at home for Bipolar and medication was started from ED Depakote 500mg BID. Will adjust to therapeutic dose. Level in 4 days or Zyprexa 10mg BID Eliquis 5mg BID Atorvastatin 20mg daily at HS Add Zyprexa 5mg BID PRN For agitation Add Ativan 1mg Q6hrs PRN for severe anxiety Plan Patient on 5 minute checks for safety. Admitted to S1. CV. Psychopharmacological assessment and mgmt as noted---goal VPA dose by weight ~2000 mg, will titrate and check levels Psychosocial assessment and interventions including groups/milieu mgmt Admission medical assessment and care with medicine as needed labs/diagnostic test. Discharge planing ED labs: Elevated on AST/ALT. Utox +BZD (was given Versed from EMS prior to be brought to ED, BAL negative). 08/08 added multivitamin, cepacol 08/09: no change 08/10 Therapeutic level of VPA, still symptomatic, but less irritable overall. Logorrheic, intrusive, pressured and labile. Reducing Ativan, monitor PRN use 08/11: More irritable and argumentative, shouting, angry, showing poor insight into severity of symptoms and difficulties Sedated yesterday, will slowly increase VPA/Olanzapine 08/14 Showing progress Patient educated on: diagnosis and medication risk/benefits Informed Consent: understands Reason for continued inpatient stay Substantial Risk for: med/psych decompensation Time Spent With Patient Time: Total time managing care of this patient today ____ minutes.
[2025-08-16 19:50] VITALS: BP 112/64; PULSE 80; RESP 16; TEMP 36.1; O2SAT 98
[2025-08-17 08:20] VITALS: BP 111/56; PULSE 82; RESP 16; TEMP 36.6; O2SAT 97
--- NOTE | 2025-08-17 12:32 | HO.PSYCHPN ---
Subjective Subjective Date of Service: 08/17/25 Reason For Visit: bipolar cam severe Subjective Notes: Sorto Warning and Conditional Voluntary Healthcare Proxy: No Guardianship: No Interim History: Had a good weeked per staff review. No outbursts. med compliant Medication Compliance: Yes Side effects from medications: No Review of Systems Acute medical concerns: No Medical Review of Systems: unchanged Review of Systems Review of Systems Yes Other (no change from HPI as far as physical complaints) Constitutional: Reports as per HPI and Reports difficulty sleeping Eyes: Reports as per HPI Reports as per HPI Cardiovascular: Reports as per HPI Respiratory: Reports as per HPI Gastrointestinal: Reports as per HPI and Reports constipation Genitourinary: Reports as per HPI Musculoskeletal: Reports as per HPI Skin/Breast: Reports as per HPI Reports as per HPI and Reports Neuro-related abnormal movements (minimal agitation) Psychiatric: Reports difficulty concentrating, Reports mood swings (labile, became tearful briefly during family meeting) and Reports other (agitated, angry, volatile,pacing, logorrheic) Endocrine: Reports as per HPI Hematologic/Lymphatic: Reports as per HPI Allergic/Immunologic: Reports as per HPI Mental Status Exam Mental Status Exam Narrative: Patient approached x 2, angry refused to meet with me, says he has fired me. MSE limited by current presentation---Patient seen and care coordinated for extended time later in the day Patient Appearance: Disheveled and Appropriate Patient Orientation: Person, Place, Time and Situation Level of Consciousness: Awake, Restless (much less), Alert and Follows Commands Patient Behavior: Appropriate, Talkative, Cooperative, Suspicious and Good Eye Contact Mood Description: Anxious and Labile Affect Description: Anxious, Labile (briefly tearful during todays family meeting with 2 dtrs and .) and Angry Patient Cognition Impaired: No Ability to Follow Directions: Fair ( limited but does so with much prompting by specific staff) Speech Pattern: Clear, Spontaneous Speech and Rapid Memory Description: Intact (no gross deficits noted) Hallucinations: None Delusions: Grandiose (somewhat increase in sense of self esteem but no delusional) Thought Process: Goal Oriented Thought Content: positive for Goal Oriented and positive for Preoccupation (mainly with being able to discharge by holiday) Judgement: Fair Diagnostics Vital Signs (24Hr): Vital Signs - 24 hr 08/16/25 19:50 08/17/25 08:20 Temperature 97.0 F 97.8 F Pulse Rate 80 82 Respiratory Rate 16 16 Blood Pressure 112/64 111/56 L Pulse Oximetry 98 97 Oxygen Delivery Method Room Air Room Air BMI result Body Mass Index 30.8 Labs 08/05/25 07:19 Medications Medications Current Medications Acetaminophen (Acetaminophen 325 Mg Tablet) 650 mg PO Q6H PRN PRN Reason: Headache/Pain, Scale 1-10 Last Admin: 08/14/25 20:39 Dose: 650 mg Al Hydroxide/Mg Hydroxide (Magnesium Hydrox/Alum Hydrox 30 Ml Oral.Susp) 30 ml PO Q6H PRN PRN Reason: Heartburn/Nausea Apixaban (Apixaban 5 Mg Tablet) 5 mg PO BID [facility] Last Admin: 08/17/25 09:15 Dose: 5 mg Atorvastatin Calcium (Atorvastatin Calcium 20 Mg Tablet) 20 mg PO BEDTIME [facility] Last Admin: 08/16/25 19:54 Dose: 20 mg Benzocaine (Throat Lozenge, Medicated Lozenge) 1 lozenge MUCOUS MEM Q2H PRN PRN Reason: Sore Throat Last Admin: 08/14/25 08:53 Dose: 1 lozenge Divalproex Sodium (Divalproex Sodium 500 Mg Tablet.Dr) 500 mg PO TID [facility] Last Admin: 08/17/25 09:16 Dose: 500 mg Docusate Sodium (Docusate Sodium 100 Mg Capsule) 100 mg PO BEDTIME [facility] Last Admin: 08/16/25 19:54 Dose: 100 mg Finasteride (Finasteride 5 Mg Tablet) 5 mg PO DAILY [facility] Last Admin: 08/17/25 09:16 Dose: 5 mg Hydroxyzine HCl (Hydroxyzine Hcl 25 Mg Tablet) 25 mg PO Q6H PRN PRN Reason: Anxiety Last Admin: 08/13/25 20:26 Dose: 25 mg Magnesium Hydroxide (Milk Of Magnesia 30 Ml Oral.Susp) 30 ml PO DAILY PRN PRN Reason: Constipation Multivitamins/Vitamin C (Multivitamin Tablet) 1 tab PO DAILY [facility] Last Admin: 08/17/25 09:15 Dose: 1 tab Nicotine (Nicotine 21 Mg Patch.Td24) 21 mg TRANSDERMA DAILY PRN PRN Reason: nicotine craving Nicotine Polacrilex (Nicotine Polacrilex 2 Mg Gum) 2 mg BUCCAL Q2H PRN PRN Reason: Nicotine Cravings Olanzapine (Olanzapine 10 Mg Tablet) 10 mg PO BID [facility] Last Admin: 08/17/25 09:15 Dose: 10 mg Olanzapine (Olanzapine 5 Mg Tablet) 5 mg PO Q6H PRN PRN Reason: agitation/hostility/NTE 2xday Last Admin: 08/13/25 15:06 Dose: 5 mg Olanzapine (Olanzapine 5 Mg Tablet) 5 mg PO DAILY [facility] Last Admin: 08/17/25 09:15 Dose: 5 mg Trazodone HCl (Trazodone Hcl 50 Mg Tablet) 50 mg PO BEDTIME PRN PRN Reason: Insomnia Last Admin: 08/15/25 23:36 Dose: 50 mg Trazodone HCl (Trazodone Hcl 100 Mg Tablet) 100 mg PO BEDTIME [facility] Last Admin: 08/16/25 19:54 Dose: 100 mg Allergies Allergies Allergy/AdvReac Type Severity Reaction Status Date / Time No Known Allergies Allergy Verified 08/04/25 17:37 Assessment & Plan Assessment & Plan (1) Bipolar disorder with severe cam: Status: Acute Code(s): F31.13 - Bipolar disorder, current episode manic without psychotic features, severe Assessment and Plan: Last week: More dysregulated, hostile, having angry outbursts and some resistance to prn and not consistently inconsistently accepting PRN medications. Less severe agitation this am but loudly talking non-stop for at least one hour in am at nursing station and continued on for another long period after lunch. Inappropriate and flirtatious with FUR DRESSER. Told her hed take shirt off to show off his muscles, which she advised not to. He still bared his chest and began posing and flexing muscles. Ongoing symptoms of cam, recent med changes. On , called alarmed asking to Told he was being dc'd on Sunday Continue current medication mgmt plan VPA level therapeutic monitor compliance Continue PRN Olanzaine and reduce frequency of Ativan as this may be contributing to increase disregulation/disinhibition Cont Olanzapine 10 mg BID scheduled 08/11 More agitated, irritable, argumentative, hostile and confrontational, demanding an MD who can speak Ethiopian Became iirate when I tried to provide education about symptoms, treatment plan, and recommendations, as he wanted to leave tomorrow. abruptly rushed out of room, shouting at me and demanding a new doctor. 08/13 Behavioral outburst, flipped table, less agitated/irritable late in PM 08/14 Able to have a more appropriate conversation, showing progress, monitor, increase VPA and recheck level 08/17 Had extended family meeting w/ and 2 daughters, patient joined later. and children indicate in their view he can safely return home a in his current condition. They feel he can remain in control. He can follow directions. He has not been verbally aggressive or threatening. He can have a conversation and a sensical fashion, and his speech is now minimally increased in rate, but no longer pressure or logorrheic. indicates that he tends to be compliant with his medical appointments and will take medications. She the prepared them in a pill box for him and gives him reminders. Daughter was concerned about patient still being planning for a home ring over patient for which he was starting to spend lots of money. Patient was informed of this I had asked how would he manage feedback given by family about this and and othr concerns if they arose. Patient was able to respond calmly and accepted this comment without protest indicating he would would follow the family members directions especially from his . He will not be spending money in renovations upon return home and delay any further purchases for now and will go forward only after consulting with his . Patient states he is tolerating medications well without side effects. He would like to stay on current dose. ceramic worker will be preparing discharge planning and aftercare, needs psychiatry and medical. New VPA tomorrow and repeat LFTs. Patient seems appropriate and safe for dc on Sunday. Family members present all denied having any concern about family or others being at risk or the patient having impaired judgement to the degree of being unable to himself safe if discharged. Patient demonstrated an ability to accept feedback today, was goal oriented in thinking, expressed gratitude for receiving treatmentfrom unit staff. Patient and family were in educated, meds and treatment as well as symptoms of impending decompensation and emergency resources in the community communicqated. Patient has been compliant with treatment and progressively been showing improvement. Patient denied anger, mood swings, suicidal/homicidal ideation, problems with sleep. He is been redirectable and had good w/e per staff. He was able to demonstrate ability to recognize his symptoms as a manic decompensation of bipolar do. He was willing to accept that family will be giving him feedback and made a commitment to listen without protest. We talked about duration of treatment and instructions to not stop treatment unless he does so in conjunction with psychiatric practitionsr. (2) Cannabis abuse: Status: Acute Code(s): F12.10 - Cannabis abuse, uncomplicated Assessment and Plan: Indicated he used for sleep but is sleeping now with HS trazodone, so no plan to resume. Psychoeducation, groups, patient chronically used for sleep and according to no recent changes in pattern of use (3) PTSD (post-traumatic stress disorder): Status: Acute Code(s): F43.10 - Post-traumatic stress disorder, unspecified Assessment and Plan: No combat, no FB/dissociating, hyperarousal--self-reported--- (4) Type II diabetes mellitus: Status: Acute Code(s): E11.9 - Type 2 diabetes mellitus without complications Assessment and Plan: Per medicinef/u as needed by medical team FUR [employer]ESSER (5) A-fib: Status: Acute Code(s): I48.91 - Unspecified atrial fibrillation Assessment and Plan: Per medical FUR DRESSER covering psych/medical team recommendations Plan HPI: patient is a 75 Ethiopian Speaking male with hx of Bipolar disorder who presents to the ED from home on a section 12 on 08/01/25. Patient has been experience worsening cam. He has not been eating, drinking or sleeping. Patient was combative when EMS arrived to his home. Patient was agitated, throwing chairs at people. Was given 2.5mg of Versed by EMS. Continue to yell, swear at staff, and combative after multiple attempted to direct, patient was physically and chemically restrained in the ED. Formulation/clinical reasoning: manic, poor sleep and appetite, irritable, agitated, loud, not sleeping and full of energy. SW communicated with who indicates sxs escalating. Only one prior known episode with hospitalization at [facility] . Per 4th : Until recently no symptoms and no tx since they have been together (~ 20 yrs ). Restrained in ED. And according to patient OCD, and PTSD. Significant symptoms of cam and untreated and generally asymptomatic for extended time. Patient may have had contact with [facility] system/a prior state admission to [facility]. Given presentation, patient admitted for stabilization in an [facility] for dx assessment, psychiatric treatment -medication management, psychosocial interventions, family contact, obtain collateral information from family/providers if agreeable, and for participation in reccommended groups. Will provide psychoeducation as tolerated and coordinate care/refer to OP services for ongoing medical and psychiatric management. Hospital course: 08/04/25: patient reports taking no meds at home for Bipolar and medication was started from ED Depakote 500mg BID. Will adjust to therapeutic dose. Level in 4 days or Zyprexa 10mg BID Eliquis 5mg BID Atorvastatin 20mg daily at HS Add Zyprexa 5mg BID PRN For agitation Add Ativan 1mg Q6hrs PRN for severe anxiety Plan Patient on 5 minute checks for safety. Admitted to S1. CV. Psychopharmacological assessment and mgmt as noted---goal VPA dose by weight ~2000 mg, will titrate and check levels Psychosocial assessment and interventions including groups/milieu mgmt Admission medical assessment and care with medicine as needed labs/diagnostic test. Discharge planing ED labs: Elevated on AST/ALT. Utox +BZD (was given Versed from EMS prior to be brought to ED, BAL negative). 08/08 added multivitamin, cepacol 08/09: no change 08/10 Therapeutic level of VPA, still symptomatic, but less irritable overall. Logorrheic, intrusive, pressured and labile. Reducing Ativan, monitor PRN use 08/11: More irritable and argumentative, shouting, angry, showing poor insight into severity of symptoms and difficulties Sedated yesterday, will slowly increase VPA/Olanzapine 08/14 Showing progress, able to hold a conversation with psychiatry without hurling insults or becoming irate or accusatory. 08/17/25 Family meeting as above. Patient has shown improvement and general behavioral control. Family want him home for holiday and they feel safe with his return. Discussed medications/treatment and aftercare plan Patient educated on: diagnosis, medication risk/benefits, substance abuse and therapeutic strategies Guardian/Caregiver educated on: diagnosis, medication risk/benefits, substance abuse and therapeutic strategies Informed Consent: understands and further education needed Reason for continued inpatient stay Substantial Risk for: inability to function, rapid decompensation and other (Patient showing improvement. VPA level tomorrow as well as LFTs) Time Spent With Patient Time: Total time managing care of this patient today ___75_ minutes.
[2025-08-17 19:48] VITALS: BP 115/66; PULSE 79; RESP 15; TEMP 36.1; O2SAT 96
[2025-08-18 08:00] VITALS: BP 102/64; PULSE 89; TEMP 36.7; O2SAT 98
[2025-08-18 08:39] LABS: Alanine Aminotransferase 22 U/L (0-40); Albumin Level 3.9 g/dL (3.5-5.0); Alkaline Phosphatase 77 U/L (39-117); Aspartate Amino Transferase 30 U/L (5-37); Total Protein 5.8 g/dL (6.5-8.0)
--- NOTE | 2025-08-18 10:55 | P.PNPSI_ITS ---
Subjective Subjective Date of Service: 08/18/25 Reason For Visit: bipolar cam severe Subjective Notes: Sorto Warning and Conditional Voluntary Healthcare Proxy: No Guardianship: No Medical Problems Affecting Mental Status: No Interim History: Has been calmer, doing well, organized in conversation and in good behavioral control. Med compliant, looking forward to dc tomorrow Medication Compliance: Yes Side effects from medications: No Review of Systems Acute medical concerns: No Medical Review of Systems: unchanged Review of Systems Review of Systems Yes all other systems are reviewed and are negative and Other (no change from HPI as far as physical complaints) Constitutional: Reports as per HPI Eyes: Reports as per HPI Reports as per HPI Cardiovascular: Reports as per HPI Respiratory: Reports as per HPI Gastrointestinal: Reports as per HPI Genitourinary: Reports as per HPI Musculoskeletal: Reports as per HPI Skin/Breast: Reports as per HPI Reports as per HPI Psychiatric: Reports other (not pacing, in good behavioral control, engaging in polite manner) Endocrine: Reports as per HPI Hematologic/Lymphatic: Reports as per HPI Allergic/Immunologic: Reports as per HPI Mental Status Exam Mental Status Exam Narrative: Patient approached x 2, angry refused to meet with me, says he has fired me. MSE limited by current presentation---Patient seen and care coordinated for extended time later in the day Patient Appearance: Appropriate Patient Orientation: Person, Place, Time and Situation Level of Consciousness: Awake, Alert and Follows Commands Patient Behavior: Appropriate, Cooperative and Good Eye Contact Mood Description: Appropriate Affect Description: Appropriate Patient Cognition Impaired: No Ability to Follow Directions: Good ( limited but does so with much prompting by specific staff) Speech Pattern: Clear, Spontaneous Speech and Rapid (slight increase in rete to normal. No longer pressured) Memory Description: Intact (no gross deficits noted) Hallucinations: None Thought Process: Goal Oriented Thought Content: positive for Goal Oriented and positive for Logical Judgement: Fair Diagnostics Vital Signs (24Hr): Vital Signs - 24 hr 08/17/25 19:48 08/18/25 08:00 Temperature 96.9 F 98.1 F Pulse Rate 79 89 Respiratory Rate 15 Blood Pressure 115/66 102/64 Pulse Oximetry 96 98 Oxygen Delivery Method Room Air BMI result Body Mass Index 30.8 Labs 08/05/25 07:19 Labs: Laboratory Results - last 48 hr 08/18/25 07:46 Total Bilirubin 0.3 Direct Bilirubin 0.1 AST 30 ALT 22 Alkaline Phosphatase 77 Total Protein 5.8 L Albumin 3.9 Valproic Acid 70.1 Medications Medications Current Medications Acetaminophen (Acetaminophen 325 Mg Tablet) 650 mg PO Q6H PRN PRN Reason: Headache/Pain, Scale 1-10 Last Admin: 08/18/25 04:39 Dose: 650 mg Al Hydroxide/Mg Hydroxide (Magnesium Hydrox/Alum Hydrox 30 Ml Oral.Susp) 30 ml PO Q6H PRN PRN Reason: Heartburn/Nausea Apixaban (Apixaban 5 Mg Tablet) 5 mg PO BID [facility] Last Admin: 08/18/25 08:20 Dose: 5 mg Atorvastatin Calcium (Atorvastatin Calcium 20 Mg Tablet) 20 mg PO BEDTIME [facility] Last Admin: 08/17/25 19:52 Dose: 20 mg Benzocaine (Throat Lozenge, Medicated Lozenge) 1 lozenge MUCOUS MEM Q2H PRN PRN Reason: Sore Throat Last Admin: 08/14/25 08:53 Dose: 1 lozenge Divalproex Sodium (Divalproex Sodium 500 Mg Tablet.) 500 mg PO TID [facility] Last Admin: 08/18/25 08:20 Dose: 500 mg Docusate Sodium (Docusate Sodium 100 Mg Capsule) 100 mg PO BEDTIME [facility] Last Admin: 08/17/25 19:52 Dose: 100 mg Finasteride (Finasteride 5 Mg Tablet) 5 mg PO DAILY [facility] Last Admin: 08/18/25 08:20 Dose: 5 mg Hydroxyzine HCl (Hydroxyzine Hcl 25 Mg Tablet) 25 mg PO Q6H PRN PRN Reason: Anxiety Last Admin: 08/17/25 19:52 Dose: 25 mg Magnesium Hydroxide (Milk Of Magnesia 30 Ml Oral.Susp) 30 ml PO DAILY PRN PRN Reason: Constipation Multivitamins/Vitamin C (Multivitamin Tablet) 1 tab PO DAILY [facility] Last Admin: 08/18/25 08:20 Dose: 1 tab Nicotine (Nicotine 21 Mg Patch.Td24) 21 mg TRANSDERMA DAILY PRN PRN Reason: nicotine craving Nicotine Polacrilex (Nicotine Polacrilex 2 Mg Gum) 2 mg BUCCAL Q2H PRN PRN Reason: Nicotine Cravings Olanzapine (Olanzapine 10 Mg Tablet) 10 mg PO BID [facility] Last Admin: 08/18/25 08:20 Dose: 10 mg Olanzapine (Olanzapine 5 Mg Tablet) 5 mg PO Q6H PRN PRN Reason: agitation/hostility/NTE 2xday Last Admin: 08/13/25 15:06 Dose: 5 mg Olanzapine (Olanzapine 5 Mg Tablet) 5 mg PO DAILY [facility] Last Admin: 08/18/25 08:20 Dose: 5 mg Trazodone HCl (Trazodone Hcl 100 Mg Tablet) 100 mg PO BEDTIME [facility] Last Admin: 08/17/25 19:52 Dose: 100 mg Allergies Allergies Allergy/AdvReac Type Severity Reaction Status Date / Time No Known Allergies Allergy Verified 08/04/25 17:37 Assessment & Plan Assessment & Plan (1) Bipolar disorder with severe cam: Status: Acute Code(s): F31.13 - Bipolar disorder, current episode manic without psychotic features, severe Assessment and Plan: Last week: More dysregulated, hostile, having angry outbursts and some resistance to prn and not consistently inconsistently accepting PRN medications. Less severe agitation this am but loudly talking non-stop for at least one hour in am at nursing station and continued on for another long period after lunch. Inappropriate and flirtatious with [employer]. Told her hed take shirt off to show off his muscles, which she advised not to. He still bared his chest and began posing and flexing muscles. Ongoing symptoms of cam, recent med changes. On , called alarmed asking to Told he was being dc'd on Sunday Continue current medication mgmt plan VPA level therapeutic monitor compliance Continue PRN Olanzaine and reduce frequency of Ativan as this may be contributing to increase disregulation/disinhibition Cont Olanzapine 10 mg BID scheduled 08/11 More agitated, irritable, argumentative, hostile and confrontational, demanding an MD who can speak Egyptian Became iirate when I tried to provide education about symptoms, treatment plan, and recommendations, as he wanted to leave tomorrow. abruptly rushed out of room, shouting at me and demanding a new doctor. 08/13 Behavioral outburst, flipped table, less agitated/irritable late in PM 08/14 Able to have a more appropriate conversation, showing progress, monitor, increase VPA and recheck level 08/17 Had extended family meeting w/ and 2 daughters, patient joined later. and children indicate in their view he can safely return home a in his current condition. They feel he can remain in control. He can follow directions. He has not been verbally aggressive or threatening. He can have a conversation and a sensical fashion, and his speech is now minimally increased in rate, but no longer pressure or logorrheic. indicates that he tends to be compliant with his medical appointments and will take medications. She the prepared them in a pill box for him and gives him reminders. Daughter was concerned about patient still being planning for a home ring over patient for which he was starting to spend lots of money. Patient was informed of this I had asked how would he manage feedback given by family about this and and othr concerns if they arose. Patient was able to respond calmly and accepted this comment without protest indicating he would would follow the family members directions especially from his . He will not be spending money in renovations upon return home and delay any further purchases for now and will go forward only after consulting with his . Patient states he is tolerating medications well without side effects. He would like to stay on current dose. 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 New VPA tomorrow and repeat LFTs. Patient seems appropriate and safe for dc on Sunday. Family members present all denied having any concern about family or others being at risk or the patient having impaired judgement to the degree of being unable to himself safe if discharged. Patient demonstrated an ability to accept feedback today, was goal oriented in thinking, expressed gratitude for receiving treatmentfrom unit staff. Patient and family were in educated, meds and treatment as well as symptoms of impending decompensation and emergency resources in the community communicqated. Patient has been compliant with treatment and progressively been showing improvement. Patient denied anger, mood swings, suicidal/homicidal ideation, problems with sleep. He is been redirectable and had good w/e per staff. He was able to demonstrate ability to recognize his symptoms as a manic decompensation of bipolar do. He was willing to accept that family will be giving him feedback and made a commitment to listen without protest. We talked about duration of treatment and instructions to not stop treatment unless he does so in conjunction with psychiatric practitionsr. (2) Cannabis abuse: Status: Acute Code(s): F12.10 - Cannabis abuse, uncomplicated Assessment and Plan: Indicated he used for sleep but is sleeping now with HS trazodone, so no plan to resume. Psychoeducation, groups, patient chronically used for sleep and according to no recent changes in pattern of use (3) PTSD (post-traumatic stress disorder): Status: Acute Code(s): F43.10 - Post-traumatic stress disorder, unspecified Assessment and Plan: No combat, no FB/dissociating, hyperarousal--self-reported--- (4) Type II diabetes mellitus: Status: Acute Code(s): E11.9 - Type 2 diabetes mellitus without complications Assessment and Plan: Per medicinef/u as needed by medical team [employer] (5) A-fib: Status: Acute Code(s): I48.91 - Unspecified atrial fibrillation Assessment and Plan: Per medical [employer] covering psych/medical team recommendations Plan HPI: patient is a 75 Egyptian Speaking male with hx of Bipolar disorder who presents to the ED from home on a section 12 on 08/01/25. Patient has been experience worsening cam. He has not been eating, drinking or sleeping. Patient was combative when EMS arrived to his home. Patient was agitated, throwing chairs at people. Was given 2.5mg of Versed by EMS. Continue to yell, swear at staff, and combative after multiple attempted to direct, patient was physically and chemically restrained in the ED. Formulation/clinical reasoning: manic, poor sleep and appetite, irritable, agitated, loud, not sleeping and full of energy. SW communicated with who indicates sxs escalating. Only one prior known episode with hospitalization at [facility]. . Per 4th : Until recently no symptoms and no tx since they have been together (~ 20 yrs ). Restrained in ED. And according to patient OCD, and PTSD. Significant symptoms of cam and untreated and generally asymptomatic for extended time. Patient may have had contact with [facility] system/a prior state admission to [facility]. Given presentation, patient admitted for stabilization in an [facility] for dx assessment, psychiatric treatment -medication management, psychosocial interventions, family contact, obtain collateral information from family/providers if agreeable, and for participation in reccommended groups. Will provide psychoeducation as tolerated and coordinate care/refer to OP services for ongoing medical and psychiatric management. Hospital course: 08/04/25: patient reports taking no meds at home for Bipolar and medication was started from ED Depakote 500mg BID. Will adjust to therapeutic dose. Level in 4 days or Zyprexa 10mg BID Eliquis 5mg BID Atorvastatin 20mg daily at HS Add Zyprexa 5mg BID PRN For agitation Add Ativan 1mg Q6hrs PRN for severe anxiety Plan Patient on 5 minute checks for safety. Admitted to S1. CV. Psychopharmacological assessment and mgmt as noted---goal VPA dose by weight ~2000 mg, will titrate and check levels Psychosocial assessment and interventions including groups/milieu mgmt Admission medical assessment and care with medicine as needed labs/diagnostic test. Discharge planing ED labs: Elevated on AST/ALT. Utox +BZD (was given Versed from EMS prior to be brought to ED, BAL negative). 08/08 added multivitamin, cepacol 08/09: no change 08/10 Therapeutic level of VPA, still symptomatic, but less irritable overall. Logorrheic, intrusive, pressured and labile. Reducing Ativan, monitor PRN use 08/11: More irritable and argumentative, shouting, angry, showing poor insight into severity of symptoms and difficulties Sedated yesterday, will slowly increase VPA/Olanzapine 08/14 Showing progress, able to hold a conversation with psychiatry without hurling insults or becoming irate or accusatory. 08/17/25 Family meeting as above. Patient has shown improvement and general behavioral control. Family want him home for holiday and they feel safe with his return. Discussed medications/treatment and aftercare plan 08/18 Remains in good control, not pressured, intrusive or verbally aggressive.No complaints. States he is taking his medications and will continue to do so. Symptoms to look for, prognosis, duration of treatment and further education provided to pt and family. Patient educated on: diagnosis, medication risk/benefits, substance abuse and therapeutic strategies Guardian/Caregiver educated on: diagnosis, medication risk/benefits, substance abuse and therapeutic strategies Informed Consent: understands and further education needed Reason for continued inpatient stay Substantial Risk for: other (Patient showing improvement. VPA level and LFTs ordered) Time Spent With Patient Time: Total time managing care of this patient today ____ minutes.
[2025-08-18 19:28] VITALS: BP 102/64; PULSE 83; RESP 18; TEMP 36.7; O2SAT 98
[2025-08-19 08:00] VITALS: BP 105/61; PULSE 78; TEMP 37.2; O2SAT 97
--- NOTE | 2025-08-19 09:25 | HO.PSYCHPN ---
Subjective Subjective Reason For Visit: bipolar cam severe Diagnostics Vital Signs (24Hr): Vital Signs - 24 hr 08/18/25 19:28 08/19/25 08:00 Temperature 98.1 F 98.9 F Pulse Rate 83 78 Respiratory Rate 18 Blood Pressure 102/64 105/61 Pulse Oximetry 98 97 Oxygen Delivery Method Room Air BMI result Body Mass Index 30.8 Labs 08/05/25 07:19 Labs: Laboratory Results - last 48 hr 08/18/25 07:46 Total Bilirubin 0.3 Direct Bilirubin 0.1 AST 30 ALT 22 Alkaline Phosphatase 77 Total Protein 5.8 L Albumin 3.9 Valproic Acid 70.1 Medications Medications Current Medications Acetaminophen (Acetaminophen 325 Mg Tablet) 650 mg PO Q6H PRN PRN Reason: Headache/Pain, Scale 1-10 Last Admin: 08/19/25 02:26 Dose: 650 mg Al Hydroxide/Mg Hydroxide (Magnesium Hydrox/Alum Hydrox 30 Ml Oral.Susp) 30 ml PO Q6H PRN PRN Reason: Heartburn/Nausea Apixaban (Apixaban 5 Mg Tablet) 5 mg PO BID [facility] Last Admin: 08/19/25 08:36 Dose: 5 mg Atorvastatin Calcium (Atorvastatin Calcium 20 Mg Tablet) 20 mg PO BEDTIME [facility] Last Admin: 08/18/25 19:59 Dose: 20 mg Benzocaine (Throat Lozenge, Medicated Lozenge) 1 lozenge MUCOUS MEM Q2H PRN PRN Reason: Sore Throat Last Admin: 08/14/25 08:53 Dose: 1 lozenge Divalproex Sodium (Divalproex Sodium 500 Mg Tablet.Dr) 500 mg PO TID [facility] Last Admin: 08/19/25 08:36 Dose: 500 mg Docusate Sodium (Docusate Sodium 100 Mg Capsule) 100 mg PO BEDTIME [facility] Last Admin: 08/18/25 19:58 Dose: 100 mg Finasteride (Finasteride 5 Mg Tablet) 5 mg PO DAILY [facility] Last Admin: 08/19/25 08:36 Dose: 5 mg Hydroxyzine HCl (Hydroxyzine Hcl 25 Mg Tablet) 25 mg PO Q6H PRN PRN Reason: Anxiety Last Admin: 08/17/25 19:52 Dose: 25 mg Magnesium Hydroxide (Milk Of Magnesia 30 Ml Oral.Susp) 30 ml PO DAILY PRN PRN Reason: Constipation Multivitamins/Vitamin C (Multivitamin Tablet) 1 tab PO DAILY [facility] Last Admin: 08/19/25 08:37 Dose: 1 tab Nicotine (Nicotine 21 Mg Patch.Td24) 21 mg TRANSDERMA DAILY PRN PRN Reason: nicotine craving Nicotine Polacrilex (Nicotine Polacrilex 2 Mg Gum) 2 mg BUCCAL Q2H PRN PRN Reason: Nicotine Cravings Olanzapine (Olanzapine 10 Mg Tablet) 10 mg PO BID [facility] Last Admin: 08/19/25 08:36 Dose: 10 mg Olanzapine (Olanzapine 5 Mg Tablet) 5 mg PO Q6H PRN PRN Reason: agitation/hostility/NTE 2xday Last Admin: 08/13/25 15:06 Dose: 5 mg Olanzapine (Olanzapine 5 Mg Tablet) 5 mg PO DAILY [facility] Last Admin: 08/19/25 08:36 Dose: 5 mg Trazodone HCl (Trazodone Hcl 100 Mg Tablet) 100 mg PO BEDTIME [facility] Last Admin: 08/18/25 19:58 Dose: 100 mg Allergies Allergies Allergy/AdvReac Type Severity Reaction Status Date / Time No Known Allergies Allergy Verified 08/04/25 17:37 Assessment & Plan Assessment & Plan (1) Bipolar disorder with severe cam: Status: Acute Code(s): F31.13 - Bipolar disorder, current episode manic without psychotic features, severe Assessment and Plan: Last week: More dysregulated, hostile, having angry outbursts and some resistance to prn and not consistently inconsistently accepting PRN medications. Less severe agitation this am but loudly talking non-stop for at least one hour in am at nursing station and continued on for another long period after lunch. Inappropriate and flirtatious with DRY CHAIN WORKER. Told her hed take shirt off to show off his muscles, which she advised not to. He still bared his chest and began posing and flexing muscles. Ongoing symptoms of cam, recent med changes. On , called alarmed asking to Told he was being dc'd on Sunday Continue current medication mgmt plan VPA level therapeutic monitor compliance Continue PRN Olanzaine and reduce frequency of Ativan as this may be contributing to increase disregulation/disinhibition Cont Olanzapine 10 mg BID scheduled 08/11 More agitated, irritable, argumentative, hostile and confrontational, demanding an MD who can speak Kuwaiti Became iirate when I tried to provide education about symptoms, treatment plan, and recommendations, as he wanted to leave tomorrow. abruptly rushed out of room, shouting at me and demanding a new doctor. 08/13 Behavioral outburst, flipped table, less agitated/irritable late in PM 08/14 Able to have a more appropriate conversation, showing progress, monitor, increase VPA and recheck level 08/17 Had extended family meeting w/ and 2 daughters, patient joined later. and children indicate in their view he can safely return home a in his current condition. They feel he can remain in control. He can follow directions. He has not been verbally aggressive or threatening. He can have a conversation and a sensical fashion, and his speech is now minimally increased in rate, but no longer pressure or logorrheic. indicates that he tends to be compliant with his medical appointments and will take medications. She the prepared them in a pill box for him and gives him reminders. Daughter was concerned about patient still being planning for a home ring over patient for which he was starting to spend lots of money. Patient was informed of this I had asked how would he manage feedback given by family about this and and othr concerns if they arose. Patient was able to respond calmly and accepted this comment without protest indicating he would would follow the family members directions especially from his . He will not be spending money in renovations upon return home and delay any further purchases for now and will go forward only after consulting with his . Patient states he is tolerating medications well without side effects. He would like to stay on current dose. precision printing worker will be preparing discharge planning and aftercare, needs psychiatry and medical. New VPA tomorrow and repeat LFTs. Patient seems appropriate and safe for dc on Sunday. Family members present all denied having any concern about family or others being at risk or the patient having impaired judgement to the degree of being unable to himself safe if discharged. Patient demonstrated an ability to accept feedback today, was goal oriented in thinking, expressed gratitude for receiving treatmentfrom unit staff. Patient and family were in educated, meds and treatment as well as symptoms of impending decompensation and emergency resources in the community communicqated. Patient has been compliant with treatment and progressively been showing improvement. Patient denied anger, mood swings, suicidal/homicidal ideation, problems with sleep. He is been redirectable and had good w/e per staff. He was able to demonstrate ability to recognize his symptoms as a manic decompensation of bipolar do. He was willing to accept that family will be giving him feedback and made a commitment to listen without protest. We talked about duration of treatment and instructions to not stop treatment unless he does so in conjunction with psychiatric practitionsr. (2) Cannabis abuse: Status: Acute Code(s): F12.10 - Cannabis abuse, uncomplicated Assessment and Plan: Indicated he used for sleep but is sleeping now with HS trazodone, so no plan to resume. Psychoeducation, groups, patient chronically used for sleep and according to no recent changes in pattern of use (3) PTSD (post-traumatic stress disorder): Status: Acute Code(s): F43.10 - Post-traumatic stress disorder, unspecified Assessment and Plan: No combat, no FB/dissociating, hyperarousal--self-reported--- (4) Type II diabetes mellitus: Status: Acute Code(s): E11.9 - Type 2 diabetes mellitus without complications Assessment and Plan: Per medicinef/u as needed by medical team [employer] CH[employer] WORKER (5) A-fib: Status: Acute Code(s): I48.91 - Unspecified atrial fibrillation Assessment and Plan: Per medical [employer] CHAIN WORKER covering psych/medical team recommendations Plan HPI: patient is a 75 [place]i Speaking male with hx of Bipolar disorder who presents to the ED from home on a section 12 on 08/01/25. Patient has been experience worsening cam. He has not been eating, drinking or sleeping. Patient was combative when EMS arrived to his home. Patient was agitated, throwing chairs at people. Was given 2.5mg of Versed by EMS. Continue to yell, swear at staff, and combative after multiple attempted to direct, patient was physically and chemically restrained in the ED. Formulation/clinical reasoning: manic, poor sleep and appetite, irritable, agitated, loud, not sleeping and full of energy. SW communicated with who indicates sxs escalating. Only one prior known episode with hospitalization at [facility]. . Per 4th : Until recently no symptoms and no tx since they have been together (~ 20 yrs ). Restrained in ED. And according to patient OCD, and PTSD. Significant symptoms of cam and untreated and generally asymptomatic for extended time. Patient may have had contact with [facility] system/a prior state admission to ? [facility]. Given presentation, patient admitted for stabilization in an [facility] for dx assessment, psychiatric treatment -medication management, psychosocial interventions, family contact, obtain collateral information from family/providers if agreeable, and for participation in reccommended groups. Will provide psychoeducation as tolerated and coordinate care/refer to OP services for ongoing medical and psychiatric management. Hospital course: 08/04/25: patient reports taking no meds at home for Bipolar and medication was started from ED Depakote 500mg BID. Will adjust to therapeutic dose. Level in 4 days or Zyprexa 10mg BID Eliquis 5mg BID Atorvastatin 20mg daily at HS Add Zyprexa 5mg BID PRN For agitation Add Ativan 1mg Q6hrs PRN for severe anxiety Plan Patient on 5 minute checks for safety. Admitted to S1. CV. Psychopharmacological assessment and mgmt as noted---goal VPA dose by weight ~2000 mg, will titrate and check levels Psychosocial assessment and interventions including groups/milieu mgmt Admission medical assessment and care with medicine as needed labs/diagnostic test. Discharge planing ED labs: Elevated on AST/ALT. Utox +BZD (was given Versed from EMS prior to be brought to ED, BAL negative). 08/08 added multivitamin, cepacol 08/09: no change 08/10 Therapeutic level of VPA, still symptomatic, but less irritable overall. Logorrheic, intrusive, pressured and labile. Reducing Ativan, monitor PRN use 08/11: More irritable and argumentative, shouting, angry, showing poor insight into severity of symptoms and difficulties Sedated yesterday, will slowly increase VPA/Olanzapine 08/14 Showing progress, able to hold a conversation with psychiatry without hurling insults or becoming irate or accusatory. 08/17/25 Family meeting as above. Patient has shown improvement and general behavioral control. Family want him home for holiday and they feel safe with his return. Discussed medications/treatment and aftercare plan 08/18 Remains in good control, not pressured, intrusive or verbally aggressive.No complaints. States he is taking his medications and will continue to do so. Symptoms to look for, prognosis, duration of treatment and further education provided to pt and family. Time Spent With Patient Time: Total time managing care of this patient today ____ minutes.
--- NOTE | 2025-08-19 09:55 | PM.PSYDC ---
DS: Providers Provider Date of Service: 08/19/25 Date of admission: 08/04/25 16:40 Date of discharge: 08/19/25 Primary care physician: Alejandra Borrero Admitting clinician: Ivonne Lomeli Attending physician on admission: Ivonne Lomeli Consults: 08/04/25 17:42 Consult to Hospitalist Routine Comment: Consulting Provider: [facility] Reason For Exam: Admission physical Attending physician on discharge: Ivonne Lomeli Discharging clinician: Ivonne Lomeli DS: Diagnosis Discharge Diagnosis (1) Bipolar disorder with severe cam: Status: Acute (2) Cannabis abuse: Status: Acute (3) PTSD (post-traumatic stress disorder): Status: Inactive (4) Type II diabetes mellitus: Status: Acute (5) A-fib: Status: Acute DS: Medications Discharge Medications Home Medications: Home Medications ?Medication ?Instructions ?Recorded ?Confirmed Depakote 500 mg PO BID 08/04/25 08/04/25 apixaban 5 mg tablet (Eliquis) 5 mg PO BID 08/04/25 08/04/25 atorvastatin 20 mg tablet 20 mg PO DAILY 08/04/25 08/04/25 olanzapine 10 mg PO BID 08/04/25 08/04/25 finasteride 5 mg tablet 5 mg PO QAM 08/05/25 08/05/25 Previous Rx's ?Medication ?Instructions ?Recorded apixaban 5 mg tablet (Eliquis) 5 mg PO BID #60 tabs 08/19/25 atorvastatin 20 mg tablet 20 mg PO BEDTIME #30 tabs 08/19/25 divalproex 500 mg tablet,delayed 500 mg PO TID #90 tabs 08/19/25 release finasteride 5 mg tablet 5 mg PO DAILY #30 tabs 08/19/25 multivitamin (Daily-Galileo tablet) 1 tab PO DAILY #30 tabs 08/19/25 olanzapine 10 mg tablet 10 mg PO BID #60 tabs 08/19/25 olanzapine 5 mg tablet 5 mg PO DAILY #30 tabs 08/19/25 trazodone 100 mg tablet 100 mg PO BEDTIME #30 tabs 08/19/25 Mental Status Exam Mental Status Exam Patient Appearance: Appropriate Patient Orientation: Person, Place, Time and Situation Level of Consciousness: Awake and Alert Patient Behavior: Appropriate and Talkative Mood Description: Calm, Appropriate and Labile (minimal, gets frustated if he doesnt get requests immediately met) Affect Description: Appropriate Patient Cognition Impaired: No Ability to Follow Directions: Good Speech Pattern: Clear Memory Description: Intact Hallucinations: None Delusions: Not Present Thought Process: Goal Oriented Thought Content: positive for Goal Oriented, positive for Suicidal Ideation (no) and positive for Homicidal Ideation (no) Judgement: Fair Data Data Completed and Pending Completed studies during hospitalization [Text1]: 08/18/25 07:46 Total Bilirubin 0.3 Direct Bilirubin 0.1 AST 30 ALT 22 Alkaline Phosphatase 77 Total Protein 5.8 L Albumin 3.9 Valproic Acid 70.1 DS: Summary Hospital Course Hospital Course: Admitted for decompensated cam, monitored for safety, medication assessment and recommendations/education provided to patient and . Patient was challenging to manage in the milieu, hostile, verbally aggressive, angry, agitated, not maintaining boundaries, loud, threatening and dismissive of psychiatrist stating he could not understand me because I had a foreign accent. He often fired me, refused to meet and complained about not having met with me. He did however sign a CV and showed a basic understanding he had to be here for treatment, and would participate and that he would stay to complete tx, desppite wishing otherwise. Patient/ educated about illness, treatment recommendations, medications, riskd/benefits, side effects, alternate courses of action, need to maintain adherence to tx and follow up. Despite being abrupt, argumantative and hostile/vaguely threatening and close to requiring a restraint, he was deescalated with much effort by select RNs. With medications, his manic symptoms began to improve. indicated he was not well yet to go back home as in her opinion his sxs had persisted though they were definitely improving. Patient agreed with her statement and agreed to remain in unit to complete tx course. He tolerated medications, was compliant, agreed to dose adjustments and by the end of his stay was in better contol, in good spitits, no longer intrusive, pressured, irritable or verbally aggresive. We had a family meeting to determine next steps and allow input from those near him. He received family visits as well and we received input. Family members were happy with his improvement and felt he could safely return home. zthey would ensure patient took medications and was adherent with aftercare plan. Patient's manic symptoms were much improved as had his PM agitation and behaviors. No SI/HI/. No physical assaults/restraints. 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 Patient and family provided psychoeducation and received instructions for return to community and continued tx as well as SW provided aftercare. On dc, stable, improved, no depressive/anxiety symptoms, no cam, no psychosis. No gross disorganizqation in thinking of behaviord. Sleeping and eating well, compliant with treatment, no SI/HI/ . Time spent discussing smoking cessation with patient: 3 to 10 minutes Status at Discharge Cognitive/behavioral status at discharge: Awawe, alert , oriented. In behavioral control. No psychosis or jeanette manic symptoms. No aggression/threatening behaviors, no SI/HI. sleeping and eating well. Stable affect with minimal to no irritability Functional status at discharge: independent ambulation Overall status at discharge: patient is progressing back to baseline (near baseline per family) Time Spent with Patient Time attestation: Total time managing care of this patient today _55___ minutes. Time spent: Greater than 30 minutes Discharge Plan Discharge Anticipated Discharge Date/Time: 08/19/25 09:27 Patient Disposition: Home, Self-Care Discharge Diagnosis: bipolar do manic severe, cannabis use do Referrals: [facility] [Other] - 08/21/25 11:20 am Referral Note: Your next PCP appointment for hospital follow up is scheduled for 08/21/25 at 11:20am. SOPHIE Cedillo-UMANG [facility] [Other] - 09/01/25 10:00 am Referral Note: Your first virtual psychiatry appointment is scheduled for 09/01/25 at 10am. You will receive a link to our phone for video call and you will also receive consent forms to a link to your phone that need to be completed prior to appointment. Please also call office to provide credit card number so they can add it to your file. Leandro Conrad MS Therapist/[facility] [Other] - 09/03/25 10:00 am Referral Note: Your first virtual therapy appointment is scheduled for 09/03/25 at 1000 with Travon Conrad. You will be sent a link for video call to your cell phone prior to session. Discharge Medications: New Eliquis 5 mg Tablet 5 mg PO BID Qty: 60 0RF olanzapine 10 mg Tablet 10 mg PO BID Qty: 60 0RF divalproex 500 mg Tablet,Delayed Release (Dr/Ec) 500 mg PO TID Qty: 90 0RF trazodone 100 mg Tablet 100 mg PO BEDTIME Qty: 30 0RF finasteride 5 mg Tablet 5 mg PO DAILY Qty: 30 0RF atorvastatin 20 mg Tablet 20 mg PO BEDTIME Qty: 30 0RF multivitamin [Daily-Galileo] Tablet 1 tab PO DAILY Qty: 30 0RF olanzapine 5 mg Tablet 5 mg PO DAILY Qty: 30 0RF Discontinued atorvastatin 20 mg tablet 20 mg PO DAILY Eliquis 5 mg tablet 5 mg PO BID Depakote 500 mg PO BID olanzapine 10 mg PO BID finasteride 5 mg tablet 5 mg PO QAM Discharge Orders: Discharge Order (Routine); Ordered 08/19/25 Ordered By: Ivonne Lomeli Diet: Regular diet Activity on Discharge: As tolerated Stand Alone Forms: Patient Portal Discharge page, Community Support Print Language: Moroccan Care Plan Goals: [facility] Contact providers if symptoms of decompensation noted by you or family and if any new difficulties with medical/mental health issues Depakote levels and lab work as recommended by outpatient provider (currently [facility]) Donot drink or use substances Health Concerns: Continue treatment for medical conditions as recommended Plan of Treatment: as above Assessment: Alert, in NAD, no agitation, no psychotic or acute manic symptoms. Sleeoing and eating well Discharge Date/Time: 08/19/25 10:38
--- NOTE | 2025-08-31 17:29 | HO.PSYCHPN ---
Subjective Subjective Date of Service: 08/15/25 Reason For Visit: bipolar cam severe Interim History: Met with patient; Late entry note for patient seen on 08/15; discussed with team Patient reports that his mood is good and that he is having a good day. However he says he has been having trouble sleeping; discussed medications and he agrees to increase trazodone to 100 mg Mental Status Exam Mental Status Exam Narrative: Pt is alert and oriented; behavior is cooperative, friendly and calm; patient is not in distress; dressed in casual attire, adequate grooming; mood is described as good and affect congruent; eye contact appropriate; Speech is normal rate, volume and prosody and not pressured; no psychomotor agitation/retardation present; thought process is organized and goal directed; Thought content is on tx; otherwise pertinent to relevant topics and without any delusional content, paranoid ideations or grandiosity; denies any SI/HI. Denies AVH and there is no evidence of perceptual disturbance. Patients insight and judgment appear intact. Diagnostics Vital Signs (24Hr): BMI result Body Mass Index 30.8 Labs 08/05/25 07:19 Medications Allergies Allergies Allergy/AdvReac Type Severity Reaction Status Date / Time No Known Allergies Allergy Verified 08/04/25 17:37 Assessment & Plan Assessment & Plan (1) Bipolar disorder with severe cam: Status: Acute Code(s): F31.13 - Bipolar disorder, current episode manic without psychotic features, severe Assessment and Plan: More dysregulated, hostile, having angry outbursts and some resistance to prn and not consistently inconsistently accepting PRN medications. Less severe agitation this am but loudly talking non-stop for at least one hour in am at nursing station and continued on for another long period after lunch. Inappropriate and flirtatious with [employer]. Told her hed take shirt off to show off his muscles, which she advised not to. He still bared his chest and began posing and flexing muscles. Ongoing symptoms of cam, recent med changes. On , called alarmed asking to Told he was being dc'd on Sunday Continue current medication mgmt plan VPA level therapeutic monitor compliance Continue PRN Olanzaine and reduce frequency of Ativan as this may be contributing to increase disregulation/disinhibition Cont Olanzapine 10 mg BID scheduled 08/11 More agitated, irritable, argumentative, hostile and confrontational, demanding an MD who can speak Serbian Became iirate when I tried to provide education about symptoms, treatment plan, and recommendations, as he wanted to leave tomorrow. abruptly rushed out of room, shouting at me and demanding a new doctor. 08/13 Behavioral outburst, flipped table, less agitated/irritable late in PM 08/14 Able to have a more appropriate conversation, showing progress, monitor, increase VPA and recheck level (2) Cannabis abuse: Status: Acute Code(s): F12.10 - Cannabis abuse, uncomplicated Assessment and Plan: Psychoeducation, groups, patient chronically using for sleep and according to no recent changes in pattern of use (3) PTSD (post-traumatic stress disorder): Status: Inactive Code(s): F43.10 - Post-traumatic stress disorder, unspecified Assessment and Plan: self-reported--- (4) Type II diabetes mellitus: Status: Acute Code(s): E11.9 - Type 2 diabetes mellitus without complications Assessment and Plan: f/u as needed by medical team [employer] (5) A-fib: Status: Acute Code(s): I48.91 - Unspecified atrial fibrillation Assessment and Plan: Per medical [employer] covering psych/medical team recommendations Plan HPI: patient is a 75 Serbian Speaking male with hx of Bipolar disorder who presents to the ED from home on a section 12 on 08/01/25. Patient has been experience worsening cam. He has not been eating, drinking or sleeping. Patient was combative when EMS arrived to his home. Patient was agitated, throwing chairs at people. Was given 2.5mg of Versed by EMS. Continue to yell, swear at staff, and combative after multiple attempted to direct, patient was physically and chemically restrained in the ED. Formulation/clinical reasoning: manic, poor sleep and appetite, irritable, agitated, loud, not sleeping and full of energy. SW communicated with who indicates sxs escalating. Only one prior known episode with hospitalization at [facility] . Per 4th : Until recently no symptoms and no tx since they have been together (~ 20 yrs ). Restrained in ED. And according to patient OCD, and PTSD. Significant symptoms of cam and untreated and generally asymptomatic for extended time. Patient may have had contact with [facility] system and a prior state admission to [facility]. Given presentation presentation, patient still require inpatient stabilization in an [facility] for ongoing treatment including medication management, psychosocial interventions, family contact, obtain collateral information from family/providers if agreeable, and participation in reccommended groups. Will provide psychoeducation as tolerated and coordinate care/refer to OP services for ongoing medical and psychiatric management. Hospital course: 08/04/25: patient reports taking no meds at home for Bipolar and medication was started from ED Depakote 500mg BID. Will adjust to therapeutic dose. Level in 4 days or Zyprexa 10mg BID Eliquis 5mg BID Atorvastatin 20mg daily at HS Add Zyprexa 5mg BID PRN For agitation Add Ativan 1mg Q6hrs PRN for severe anxiety Plan Patient on 5 minute checks for safety. Admitted to S1. CV. Psychopharmacological assessment and mgmt as noted---goal VPA dose by weight ~2000 mg, will titrate and check levels Psychosocial assessment and interventions including groups/milieu mgmt Admission medical assessment and care with medicine as needed labs/diagnostic test. Discharge planing ED labs: Elevated on AST/ALT. Utox +BZD (was given Versed from EMS prior to be brought to ED, BAL negative). 08/08 added multivitamin, cepacol 08/09: no change 08/10 Therapeutic level of VPA, still symptomatic, but less irritable overall. Logorrheic, intrusive, pressured and labile. Reducing Ativan, monitor PRN use 08/11: More irritable and argumentative, shouting, angry, showing poor insight into severity of symptoms and difficulties Sedated yesterday, will slowly increase VPA/Olanzapine 08/14 Showing progress Patient educated on: diagnosis and medication risk/benefits Informed Consent: understands Reason for continued inpatient stay Substantial Risk for: rapid decompensation Time Spent With Patient Time: Total time managing care of this patient today ____ minutes.
== END 2025-08-19 10:38 | disposition home or self-care (01) | DRG 885 ==
PROVIDERS: Nurse Practitioner Psychiatric/Mental Health; Psychiatry & Neurology Forensic Psychiatry; Admitting Provider Psychiatry & Neurology Psychiatry; Visit Provider Psychiatry & Neurology Psychiatry
DX: F31.9 Bipolar disorder, unspecified (principal); I48.91 Unspecified atrial fibrillation; F12.10 Cannabis abuse, uncomplicated; F43.10 Post-traumatic stress disorder, unspecified; E11.22 Type 2 diabetes mellitus with diabetic chronic kidney disease; N18.9 Chronic kidney disease, unspecified; N40.0 Benign prostatic hyperplasia without lower urinary tract symptoms; F10.11 Alcohol abuse, in remission; Z87.891 Personal history of nicotine dependence; Z79.01 Long term (current) use of anticoagulants; Z79.899 Other long term (current) drug therapy
CPT/HCPCS: 36415; 80053; 80061; 80076; 80164; 82607; 82746; 83036; 83735; 84439; 84443

== ENCOUNTER → 2025-08-04 16:40 | Outpatient (BNV) | payer OTHER, SELFPAY | PROVIDERS: Admitting Provider Psychiatry & Neurology Psychiatry; Visit Provider Nurse Practitioner Psychiatric/Mental Health | DX: F31.13 Bipolar disorder, current episode manic without psychotic features, severe (principal); F12.10 Cannabis abuse, uncomplicated; F43.11 Post-traumatic stress disorder, acute; E11.9 Type 2 diabetes mellitus without complications; I48.91 Unspecified atrial fibrillation | CPT/HCPCS: 99231; 99232 ==

== ENCOUNTER → 2025-08-04 16:40 | Outpatient (BNV) | payer OTHER, SELFPAY | PROVIDERS: Admitting Provider Psychiatry & Neurology Psychiatry; Visit Provider Nurse Practitioner Family | DX: I48.91 Unspecified atrial fibrillation (principal) | CPT/HCPCS: 99221 ==